=== PATIENT | female | born 1935 | race Caucasian/White ===

== ENCOUNTER → 2016-10-18 | Outpatient (CLI) | payer BC ==
[~2016-10-18] MED LIST: ASPI81TA28 PO; ATEN-173 PO; CALC-20 PO; CARB25TA12 PO; ENAL10TA88 PO; HYDR-4717 PO; MULT-506 PO; NTRGSL/4 UT; SIMV20TA2 PO; ZOLP5TAB6 PO
--- NOTE | 2016-10-18 12:54 | DIAGNOSTIC IMAGING REPORT ---
THYROID ULTRASOUND HISTORY: Thyroid nodule. Follow-up. COMPARISON: Thyroid ultrasound 01/25/2012. FINDINGS: Right lobe: 4.0 x 1.7 x 1.3 cm. There are few small nodules/cysts. The largest heterogeneous nodule in the lower pole measures 7 x 5 mm. This has slightly decreased in size. Left lobe: 4.2 x 1.3 x 1.1 cm. There are few small nodules/cysts with the largest in the upper pole measuring 5 mm. Isthmus: 2 mm in thickness. No nodules. IMPRESSION: The dominant nodule within the lower pole of the right lower lobe has slightly decreased in size and now measures 7 x 5 mm. This does not meet sonographic criteria for biopsy. Electronically signed by: Lyle Yang M.D. 10/18/2016 12:53 PM Dictated Date/Time: 10/18/2016 12:51 PM
== END | disposition home or self-care (01) ==
LOC: C.ULTR 11:47
PROVIDERS: ATTEND Internal Medicine
DX: E04.2 Nontoxic multinodular goiter (principal)

== ENCOUNTER → 2017-01-02 | Outpatient (CLI) | payer BC ==
[2017-01-02 17:31] LABS: URINE APPEARANCE CLEAR (CLEAR); URINE BILIRUBIN NEG (NEG); URINE COLOR YELLOW; URINE NITRITE POS (NEG); URINE PH 7.5 (4.5-7.5); URINE SPECIFIC GRAVITY 1.018 (1.000-1.030); UROBILINOGEN NEG (NEG)
[2017-01-02 17:40] LABS: MANUAL MICROSCOPIC REQUIRED? NO; REVIEW REQ? NO
== END | disposition home or self-care (01) ==
LOC: C.LABBFT 12:03
PROVIDERS: ATTEND Physician Assistant Medical
DX: R39.9 Unspecified symptoms and signs involving the genitourinary system (principal)

== ENCOUNTER → 2017-04-06 | Outpatient (CLI) | payer BC ==
[2017-04-06 12:58] LABS: BASO % 0.6 %; BASO ABS # 0.04 K/uL (0-0.2); COMPLETE YES; EOS % 2.4 %; HEMATOCRIT 40.1 % (37-47); IG% 0.3 %; MEAN CELL VOLUME 86.1 fL (80-100); MEAN CORPUSCULAR HGB CONC 33.7 g/dl (32-36); MEAN PLATELET VOLUME 10.5 fL (7.4-10.4); MONO % 10.1 %; NEUT % 60.6 %; PLATELET COUNT 217 K/uL (130-400); RED BLOOD COUNT 4.66 M/uL (4.2-5.4); WHITE BLOOD COUNT 6.54 K/uL (4.8-10.8)
[2017-04-06 13:30] LABS: URINE APPEARANCE CLOUDY (CLEAR); URINE BILIRUBIN NEG (NEG); URINE COLOR YELLOW; URINE EPITHELIAL CELL AUTO >30 /lpf (0-5); URINE NITRITE POS (NEG); URINE SPECIFIC GRAVITY 1.021 (1.000-1.030); UROBILINOGEN NEG (NEG); ZZUR CULT IF INDIC CLEAN CATCH YES
[2017-04-06 13:40] LABS: MANUAL MICROSCOPIC REQUIRED? NO; REVIEW REQ? NO
[2017-04-06 13:40] LABS: ALT/SGPT 9 U/L (12-78); BLOOD UREA NITROGEN 22 mg/dl (7-18); BUN/CREATININE RATIO 24.2 (10-20); CARBON DIOXIDE 29 mmol/L (21-32); CHLORIDE 107 mmol/L (98-107); CHOLESTEROL 115 mg/dl (0-200); GLUCOSE 83 mg/dl (70-99); POTASSIUM 4.1 mmol/L (3.5-5.1); SODIUM 141 mmol/L (136-145); TRIGLYCERIDES 93 mg/dl (0-150); VERY LOW DENSITY LIPOPROT CALC 19 mg/dl
[2017-04-06 13:50] LABS: ALB/GLOB RATIO 1.1 (0.9-2); ALKALINE PHOSPHATASE 69 U/L (45-117); AST/SGOT 17 U/L (15-37); CHOLESTEROL/HDL RATIO 3.1; HDL CHOLESTEROL 37 mg/dl; LDL CHOLESTEROL CALCULATED 59 mg/dl
== END | disposition home or self-care (01) ==
LOC: C.LABBFT 07:54
PROVIDERS: ATTEND Internal Medicine
DX: R31.29 Other microscopic hematuria (principal); E78.00 Pure hypercholesterolemia, unspecified; M85.80 Other specified disorders of bone density and structure, unspecified site; G20 Parkinson's disease

== ENCOUNTER → 2017-07-11 | Outpatient (CLI) | payer BC ==
--- NOTE | 2017-07-12 13:43 | MAMMOGRAPHY REPORT ---
BILATERAL DIGITAL SCREENING MAMMOGRAM TOMOSYNTHESIS WITH CAD: 07/11/2017 CLINICAL HISTORY: Routine screening. Patient has no complaints. TECHNIQUE: Breast tomosynthesis in addition to standard 2D mammography was performed. Current study was also evaluated with a Computer Aided Detection (CAD) system. COMPARISON: Comparison is made to exams dated: 06/21/2016 mammogram, 06/18/2015 mammogram, 06/17/2014 m ammogram, 06/11/2013 mammogram, 06/05/2012 mammogram, and 06/03/2011 mammogram - [facility]. BREAST COMPOSITION: There are scattered areas of fibroglandular density in both breasts. FINDINGS: There is an asymmetry in the subareolar left breast, best seen on the CC view and correspo nding tomosynthesis images. Although this could represent normal fibroglandular tissue, additional s pot compression tomosynthesis views with possible ultrasound are recommended. No other suspicious mass, architectural distortion or cluster of microcalcifications is seen bilatera lly. IMPRESSION: ACR BI-RADS CATEGORY 0: INCOMPLETE EVALUATION: NEED ADDITIONAL IMAGING EVALUATION The asymmetry in the subareolar left breast needs additional evaluation. The patient will be called to schedule an appointment. Approximately 10% of breast cancers are not detected with mammography. A negative mammographic report should not delay biopsy if a clinically suggestive mass is present. Geraldine Gibson M.D. ay/:07/11/2017 15:22:51 Pastoral Worker: Danelle GULALPA(Kary)(Elena), [facility] letter sent: Addl Imaging 0 BI-RADS Code: ACR BI-RADS Category 0: Incomplete Evaluation: Need Additional Imaging Evaluation
== END | disposition home or self-care (01) ==
LOC: C.MAMM 13:28
PROVIDERS: ATTEND Internal Medicine
DX: Z12.31 Encounter for screening mammogram for malignant neoplasm of breast (principal)

== ENCOUNTER → 2017-07-19 | Outpatient (CLI) | payer BC ==
--- NOTE | 2017-07-19 15:17 | MAMMOGRAPHY REPORT ---
UNILATERAL LEFT DIGITAL DIAGNOSTIC MAMMOGRAM TOMOSYNTHESIS AND TARGETED LEFT ULTRASOUND: 07/19/2017 CLINICAL HISTORY: Callback from screening mammogram for left breast asymmetry. TECHNIQUE: Breast tomosynthesis in addition to standard 2D mammography was performed. Spot compress ion left CC and MLO 2-D and tomosynthesis images were obtained. COMPARISON: Comparison is made to exams dated: 07/11/2017 mammogram, 06/21/2016 mammogram, 06/18/2015 mammogram, 06/17/2014 mammogram, 06/05/2012 mammogram, and 06/03/2011 mammogram - [facility]. BREAST COMPOSITION: There are scattered areas of fibroglandular density in the left breast. FINDINGS: The previously described asymmetry within the left subareolar breast effaces to a baseline appearance on the additional spot compression views, with appearance of this region similar to multip le prior exams including the 2008 exam. No suspicious mass or architectural distortion is seen in th is region on the additional images. Targeted ultrasound was performed of the left subareolar breast in the region of the mammographic asy mmetry. Sonographically normal tissue is seen in this region, with multiple normal-appearing ducts s een in the left subareolar region which likely account for the stable mammographic asymmetry. No roberto picious masses or other suspicious sonographic abnormalities are evident. IMPRESSION: ACR BI-RADS CATEGORY 2: BENIGN, TARGETED ULTRASOUND ACR BI-RADS CATEGORY 2: BENIGN The left breast asymmetry effaces to a baseline appearance on the additional images, with no correspo nding suspicious sonographic abnormality evident. Findings are benign and compatible with normal fib roglandular tissue. There is no mammographic or targeted sonographic evidence of malignancy. A 1 yea r screening mammogram is recommended. The patient has been verbally notified of the results. Approximately 10% of breast cancers are not detected with mammography. A negative mammographic report should not delay biopsy if a clinically suggestive mass is present. Radha Moss M.D. /:07/19/2017 09:39:28 Urban Designer: Danelle Owen, [facility] letter sent: Normal 1/2 BI-RADS Code: ACR BI-RADS Category 2: Benign Ultrasound BI-RADS: ACR BI-RADS Category 2: Benign
== END | disposition home or self-care (01) ==
LOC: C.MAMM 09:17
PROVIDERS: ATTEND Internal Medicine
DX: N64.89 Other specified disorders of breast (principal)

== ENCOUNTER 2017-09-13 17:00 | Observation (INO) | payer BC, OTHER ==
[~2017-09-13] VITALS: Ht 160 cm; Wt 73.8 kg
--- NOTE | 2017-09-13 19:26 | EMERGENCY ROOM VISIT NOTE ---
History First contact with patient: 18:35 Chief Complaint: HYPERTENSION Stated Complaint: VERY HIGH BLOOD PRESSURE History of Present Illness The patient is a 82 year old female with history of Hypertension ,HLD, Parkinson 's disease currently taking Coreg, Valsartan who presents to the Emergency Room with complaints of elevated Blood pressure for the last 3 days. She went to see her PCP, Dr. Morales yesterday and BP at the time was 188/100. She reports today her BP at home was >220/>[address] Morales's office. She was subsequently encouraged to go to ED for evaluation.She reports Headache,some nausea. She also reports recurrent intermittent chest tightness for the last several months. Chest discomfort is central , typically last seconds, not associated with exertion, non-radiating. She also reports occasional palpation. She denies vision changes, fevers, chills nausea/vomiting. Review of Systems Pt denies headache, change in vision, fevers, shortness of breath, nausea, vomiting, diarrhea, pain with urination, and melena. Past Medical/Surgical History Medical Problems: (1) Cervical cancer (2) Colon polyps (3) H/O non-ST elevation myocardial infarction (NSTEMI) (4) Hypertension (5) Hypertensive urgency (6) Precordial chest pain (7) Renal cyst, right (8) Shortness of breath Surgical Problems: (1) History of appendectomy Family History FH: COPD (chronic obstructive pulmonary disease) FH: cancer FH: heart disease FH: stroke Social History Smoking Status: Former Smoker Alcohol Use: occasionally Drug Use: none Marital Status: Housing Status: lives with family Occupation Status: retired Current/Historical Medications Scheduled Aspirin (Aspirin Ec), 81 MG PO QAM Calcium Carbonate-Vitamin D (Calcium 600 + D), 1 TAB PO DAILY Carbidopa/Levodopa (Sinemet 25MG/100MG), 1 TAB PO QID Carvedilol (Coreg), 6.25 MG PO BIDM Multivitamin (Multivitamin), 1 TAB PO DAILY [place]-3 Fatty Acids (Fish Oil), 1 CAP PO DAILY Simvastatin (Zocor), 20 MG PO QPM Valsartan (Diovan), 160 MG PO DAILY Scheduled PRN Furosemide (Lasix), 20 MG PO DAILY PRN for Fluid Retention Nitroglycerin (Nitrostat), 0.4 MG UT UD PRN for Chest Pain Physical Exam Vital Signs Date Time Temp Pulse Resp B/P (MAP) Pulse Ox O2 Delivery O2 Flow Rate FiO2 09/13/17 23:46 71 20 215/111 95 09/13/17 23:07 63 09/13/17 22:45 61 18 199/92 93 Room Air 09/13/17 21:45 60 18 186/97 98 09/13/17 21:17 58 18 192/121 94 Room Air 09/13/17 20:32 75 18 228/117 97 Room Air 09/13/17 19:31 62 09/13/17 19:26 67 18 213/100 97 Room Air 09/13/17 17:08 36.6 67 16 196/107 94 Room Air Physical Exam GENERAL: alert, no distress, non-toxic EYE EXAM: normal conjunctiva, PERRL and EOM's grossly intact OROPHARYNX: no exudate, no erythema, lips, buccal mucosa, and tongue normal and mucous membranes are moist NECK: supple, no nuchal rigidity, no adenopathy, non-tender LUNGS: Clear to auscultation. Normal chest wall mechanics HEART: no murmurs, S1 normal and S2 normal ABDOMEN: abdomen soft, non-tender, normo-active bowel sounds, no masses, no rebound or guarding. LOWER EXTREMITIES: No pitting edema. NEURO EXAM: Normal sensorium, cranial nerves II-XII grossly intact, normal speech Medical Decision & Procedures Laboratory Results 09/13/17 19:27 Red Blood Count 4.96, Mean Corpuscular Volume 85.7, Mean Corpuscular Hemoglobin 28.6, Mean Corpuscular Hemoglobin Concent 33.4, Mean Platelet Volume 9.6, Neutrophils (%) (Auto) 58.2, Lymphocytes (%) (Auto) 27.4, Monocytes (%) (Auto) 10.7, Eosinophils (%) (Auto) 3.0, Basophils (%) (Auto) 0.4, Neutrophils # (Auto ) 3.91, Lymphocytes # (Auto) 1.84, Monocytes # (Auto) 0.72, Eosinophils # (Auto ) 0.20, Basophils # (Auto) 0.03 09/13/17 19:27 Test 09/13/17 19:27 White Blood Count 6.72 K/uL (4.8-10.8) Red Blood Count 4.96 M/uL (4.2-5.4) Hemoglobin 14.2 g/dL (12.0-16.0) Hematocrit 42.5 % (37-47) Mean Corpuscular Volume 85.7 fL (80-100) Mean Corpuscular Hemoglobin 28.6 pg (25-34) Mean Corpuscular Hemoglobin Concent 33.4 g/dl (32-36) Platelet Count 228 K/uL (130-400) Mean Platelet Volume 9.6 fL (7.4-10.4) Neutrophils (%) (Auto) 58.2 % Lymphocytes (%) (Auto) 27.4 % Monocytes (%) (Auto) 10.7 % Eosinophils (%) (Auto) 3.0 % Basophils (%) (Auto) 0.4 % Neutrophils # (Auto) 3.91 K/uL (1.4-6.5) Lymphocytes # (Auto) 1.84 K/uL (1.2-3.4) Monocytes # (Auto) 0.72 K/uL (0.11-0.59) Eosinophils # (Auto) 0.20 K/uL (0-0.5) Basophils # (Auto) 0.03 K/uL (0-0.2) RDW Standard Deviation 46.8 fL (36.4-46.3) RDW Coefficient of Variation 14.8 % (11.5-14.5) Immature Granulocyte % (Auto) 0.3 % Immature Granulocyte # (Auto) 0.02 K/uL (0.00-0.02) Anion Gap 7.0 mmol/L (3-11) Est Creatinine Clear Calc Drug Dose 57.0 ml/min Estimated GFR () 83.9 Estimated GFR (Non- 72.4 BUN/Creatinine Ratio 26.7 (10-20) Calcium Level 9.1 mg/dl (8.5-10.1) Troponin I < 0.015 ng/ml (0-0.045) Medications Administered Medications (Trade) Dose Ordered Sig/Calvin Route Start Time Stop Time Status Last Admin Dose Admin Acetaminophen (Tylenol Tab) 500 mg NOW STAT PO 09/13/17 19:45 09/13/17 19:46 DC 09/13/17 20:00 500 MG Labetalol HCl (Normodyne IV) 10 mg NOW STAT IV 09/13/17 20:52 09/13/17 20:55 DC 09/13/17 20:52 10 MG Procedure CHEST ONE VIEW PORTABLE HISTORY: Hypertension. COMPARISON: Chest 05/31/2016. FINDINGS: No focal lung consolidations to suggest pneumonia. No evidence for pulmonary edema. The heart is borderline enlarged. This remains unchanged. No pleural effusions. No pneumothorax. Degenerative and postoperative changes are again noted within the right shoulder. IMPRESSION: No significant change compared to the prior study. No acute process. Electronically signed by: Lyle Yang M.D. Medical Decision 82 yo F w/ history of Parkinson's Disease and Hypertension on Coreg, Valsartan presenting with Hypertensive Urgency, reporting Headache, and nausea in addition to intermittent chest pain. Patient arrived to ED with 228/117. EKG showed some new Q waves but no acute ischemic changes. Labwork showed unremarkable CBC, BUN/Cr. Troponin was negative. CXR was unremarkable. Discussed case with Dr. Ronquillo ( Cardiology) who advised admitting to observation and trending of troponin levels to rule out new onset ischemia as cause of chest pain. BP was treated with 10 mg IV Labetalol. BP decreased to 192/121-->186/97. Upon reevaluation, the patient is asymptomatic. I discussed the findings and the treatment plan with the patient. Patient expresses agreement and understanding. I spoke with Dr. Dee of the [facility] Hospitalist Service. She will be evaluated for further management. Head Trauma GCS Score: 15 Medication Reconcilliation Current Medication List: was personally reviewed by me Blood Pressure Screening Patient's blood pressure: Elevated blood pressure Impression Primary Impression: Hypertension Additional Impression: Chest pain Departure Information Dispostion Admitted as an inpatient Condition GOOD Referrals Andrés Morales M.D. (PCP) Patient Instructions My [facility] Resident Tracking Resident Involvement: Resident Care Provided Care Provided: Adult ED Problem Qualifiers
[2017-09-13 19:41] LABS: BASO % 0.4 %; BASO ABS # 0.03 K/uL (0-0.2); HEMATOCRIT 42.5 % (37-47); HEMOGLOBIN 14.2 g/dL (12.0-16.0); IG# 0.02 K/uL (0.00-0.02); LYMPH % 27.4 %; LYMPH ABS # 1.84 K/uL (1.2-3.4); MEAN CELL VOLUME 85.7 fL (80-100); MEAN CORPUSCULAR HEMOGLOBIN 28.6 pg (25-34); MEAN CORPUSCULAR HGB CONC 33.4 g/dl (32-36); MEAN PLATELET VOLUME 9.6 fL (7.4-10.4); MONO % 10.7 %; MONO ABS # 0.72 K/uL (0.11-0.59); NEUT % 58.2 %; NEUT ABS # 3.91 K/uL (1.4-6.5); PLATELET COUNT 228 K/uL (130-400); RED CELL DISTRIBUTION WIDTH CV 14.8 % (11.5-14.5); RED CELL DISTRIBUTION WIDTH SD 46.8 fL (36.4-46.3); WHITE BLOOD COUNT 6.72 K/uL (4.8-10.8)
[2017-09-13] MEDS ORDERED: ACETAMINOPHEN 500 MG TAB PO STA (19:45)
[2017-09-13 19:57] LABS: BLOOD UREA NITROGEN 21 mg/dl (7-18); CALCIUM 9.1 mg/dl (8.5-10.1); CARBON DIOXIDE 27 mmol/L (21-32); CREATININE 0.77 mg/dl (0.60-1.20); GLUCOSE 91 mg/dl (70-99); POTASSIUM 3.8 mmol/L (3.5-5.1); SODIUM 138 mmol/L (136-145)
--- NOTE | 2017-09-13 20:39 | DIAGNOSTIC IMAGING REPORT ---
CHEST ONE VIEW PORTABLE HISTORY: Hypertension. COMPARISON: Chest 05/31/2016. FINDINGS: No focal lung consolidations to suggest pneumonia. No evidence for pulmonary edema. The heart is borderline enlarged. This remains unchanged. No pleural effusions. No pneumothorax. Degenerative and postoperative changes are again noted within the right shoulder. IMPRESSION: No significant change compared to the prior study. No acute process. Electronically signed by: Lyle Yang M.D. 09/13/2017 8:38 PM Dictated Date/Time: 09/13/2017 8:34 PM
[2017-09-13] MEDS ORDERED: LABETALOL HCL IV 5 MG/ML 20ML IV STA (20:52)
--- NOTE | 2017-09-13 22:09 | History and Physical ---
History & Physical Date & Time of Service: Sep 13, 2017 at 22:07 Chief Complaint: Very High Blood Pressure Primary Care Physician: Andrés Morales M.D. History of Present Illness 82 year old female with PMHx h/o NSTEMI, HTN, HLD, Parkinson's presents to the ED with complaints of elevated blood pressure and headache. It was first noted at here PCP's office yesterday where what was noted to 188 systolic. Advised patient to go home and monitor until Monday, without adjustment in anti-hypertensive medications. Patient noted levels of >200 systolic this morning. She began developing a frontal pressure and sensation of "eye bulging" around noon and called her PCP who referred her to ED for further evaluation. She also states intermittent episodes of nausea, which actually began last night. Patient states compliance with her medication: carvedilol, valsartan, and furosemide PRN for leg swelling. She normally does not measure BP at home. She otherwise denies fevers/chills, vision changes, URTI symptoms, current CP, palpitations (has history of these, but none currently), dyspnea, abdominal pain , lower extremity swelling, new assymetrical weakness/facial drooping/speech slurring, or rashes. She is tolerating diet without nausea or vomiting, ambulating without dizziness/lightheadedness and denies recent falls or head trauma. She voiding and stooling appropriately. ROS is unremarkable except as noted above. In the ED, BP reduced to 187/97 with labetalol, but patient has ongoing complaints of headache and eye pressure, despite Tylenol. Past Medical/Surgical History Medical/surgical problems: Parkinson's HTN HLD NSTEMI Colon Polyps Renal cysts Cervical cancer s/p hysterectomy without removal of ovaries Breast lumpectomies for benign masses History of appendectomy Back surgery Shoulder surgery Family History FH: COPD (chronic obstructive pulmonary disease) FH: cancer FH: heart disease FH: stroke Social History Smoking Status: Former Smoker (Ex smoker of 40 years, 20-30 pack year history) Smokeless Tobacco Use: No Alcohol Use: none Drug Use: none Marital Status: Housing status: lives with family Occupational Status: retired Immunizations History of Influenza Vaccine: N/A Influenza Vaccine Date: May 11, 2005 History of Tetanus Vaccine?: Yes History of Pneumococcal: 2004 History of Hepatitis B Vaccine: No Multi-Drug Resistant Organisms History of MDRO: No Allergies Coded Allergies: Morphine (Verified Allergy, Unknown, 06/07/16) Home Medications Scheduled Aspirin (Aspirin Ec), 81 MG PO QAM Calcium Carbonate-Vitamin D (Calcium 600 + D), 1 TAB PO DAILY Carbidopa/Levodopa (Sinemet 25MG/100MG), 1 TAB PO QID Carvedilol (Coreg), 6.25 MG PO BIDM Multivitamin (Multivitamin), 1 TAB PO DAILY [place]-3 Fatty Acids (Fish Oil), 1 CAP PO DAILY Simvastatin (Zocor), 20 MG PO QPM Valsartan (Diovan), 160 MG PO DAILY Scheduled PRN Furosemide (Lasix), 20 MG PO DAILY PRN for Fluid Retention Nitroglycerin (Nitrostat), 0.4 MG UT UD PRN for Chest Pain Physical Exam Vital Signs Date Time Temp Pulse Resp B/P (MAP) Pulse Ox O2 Delivery O2 Flow Rate FiO2 09/13/17 21:45 60 18 186/97 98 09/13/17 21:17 58 18 192/121 94 Room Air 09/13/17 20:32 75 18 228/117 97 Room Air 09/13/17 19:31 62 09/13/17 19:26 67 18 213/100 97 Room Air 09/13/17 17:08 36.6 67 16 196/107 94 Room Air General Appearance: WD/WN, no apparent distress, + pertinent finding (soft spoken, mild degree of masked facies) Head: normocephalic, atraumatic Eyes: normal inspection, PERRL, EOMI, sclerae normal ENT: hearing grossly normal, pharynx normal, + pertinent finding (moist mucous membranes) Neck: supple, no adenopathy, thyroid normal, no JVD, no carotid bruits Respiratory/Chest: lungs clear, normal breath sounds, no respiratory distress, no accessory muscle use Cardiovascular: regular rate, rhythm, no murmur, normal peripheral pulses Abdomen/GI: normal bowel sounds, non tender, soft Extremities/Musculoskelatal: no calf tenderness, + pedal edema (trace edema up to upper ankles), + pertinent finding (Describing right sided sciatic pain symptoms - not new) 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, no motor/sensory deficits, alert, normal mood/affect, oriented x 3 Skin: normal color, warm/dry, no rash Diagnostics Laboratory Results Results Past 24 Hours Test 09/13/17 19:27 Range/Units White Blood Count 6.72 4.8-10.8 K/uL Red Blood Count 4.96 4.2-5.4 M/uL Hemoglobin 14.2 12.0-16.0 g/dL Hematocrit 42.5 37-47 % Mean Corpuscular Volume 85.7 80-100 fL Mean Corpuscular Hemoglobin 28.6 25-34 pg Mean Corpuscular Hemoglobin Concent 33.4 32-36 g/dl Platelet Count 228 130-400 K/uL Mean Platelet Volume 9.6 7.4-10.4 fL Neutrophils (%) (Auto) 58.2 % Lymphocytes (%) (Auto) 27.4 % Monocytes (%) (Auto) 10.7 % Eosinophils (%) (Auto) 3.0 % Basophils (%) (Auto) 0.4 % Neutrophils # (Auto) 3.91 1.4-6.5 K/uL Lymphocytes # (Auto) 1.84 1.2-3.4 K/uL Monocytes # (Auto) 0.72 0.11-0.59 K/uL Eosinophils # (Auto) 0.20 0-0.5 K/uL Basophils # (Auto) 0.03 0-0.2 K/uL RDW Standard Deviation 46.8 36.4-46.3 fL RDW Coefficient of Variation 14.8 11.5-14.5 % Immature Granulocyte % (Auto) 0.3 % Immature Granulocyte # (Auto) 0.02 0.00-0.02 K/uL Sodium Level 138 136-145 mmol/L Potassium Level 3.8 3.5-5.1 mmol/L Chloride Level 104 98-107 mmol/L Carbon Dioxide Level 27 21-32 mmol/L Anion Gap 7.0 3-11 mmol/L Blood Urea Nitrogen 21 7-18 mg/dl Creatinine 0.77 0.60-1.20 mg/dl Est Creatinine Clear Calc Drug Dose 57.0 ml/min Estimated GFR () 83.9 Estimated GFR (Non- 72.4 BUN/Creatinine Ratio 26.7 10-20 Random Glucose 91 70-99 mg/dl Calcium Level 9.1 8.5-10.1 mg/dl Troponin I < 0.015 0-0.045 ng/ml Diagnostic Radiology CHEST ONE VIEW PORTABLE HISTORY: Hypertension. COMPARISON: Chest 05/31/2016. FINDINGS: No focal lung consolidations to suggest pneumonia. No evidence for pulmonary edema. The heart is borderline enlarged. This remains unchanged. No pleural effusions. No pneumothorax. Degenerative and postoperative changes are again noted within the right shoulder. IMPRESSION: No significant change compared to the prior study. No acute process. EKG Normal sinus rhythm Normal ECG HR 64, QTc 433 Impression Assessment and Plan 82 year old female with PMHx h/o CAD / NSTEMI, HTN, HLD, Parkinson's presents to the ED with complaints of elevated blood pressure and headache. HTN urgency with symptoms - no focal neurological deficits appreciated - Continue carvedilol, and valsartan - Added HCTz 12.5mg daily - IV hydralazine 10mg q6h PRN SBP >180 - Zofran PRN nausea - Monitor in telemetry CAD/HLD - Continue aspirin, simvastatin, and nitroglycerin PRN - EKG PRN chest pain Parkinson's - Continue carbidopa/levodopa VTE ppx - SCDs Dispo - lives home with , PT/OT eval FULL CODE Resident Physician Supervision Note: I was present with Dr. Moran during the history and exam. I discussed the case with the resident and agree with the findings and plan as documented in the note. Any exceptions or clarifications are listed here: 82 y/o F Hx HTN, CAD, Parkinson - has been struggling with an BARBOZA and uncontrolled BP over the last few days. She was treated at her primary MDs office but has not significantly improved. Her SBP in the ER has ranged from 180-220 despite IV Labetalol. OE AAOx3 s1,2 r CTAB NT, ND NO CCE P: She denies CP and is not having focal deficits We will assign to telemetry and treat with Hydralazine in addition to starting a low dose of diuretic as a 3rd agent. Will cont ASA and a Statin - there is no eveidence of ACS although she may have some subtle EKG changes - will obtain additional trop and AM EKG Cont scheduled Sinemet Documented By: Rodney Dee Level of Care Telemetry Advanced Directives Existing Advance Directive: Yes Existing Living Will: Yes Existing Power of Corporate Intern: Yes (Debby Willingham, PatitoRadha Sarah) Existing Health Care Proxy: Yes Resuscitation Status FULL RESUSCITATION VTE Prophylaxis VTE Risk Assessment Done? Y/N: Yes Risk Level: Moderate Given or contraindicated: SCD's Resident Tracking Resident Involvement: Resident Care Provided Care Provided: Adult Hospital Medicine
[2017-09-13] MEDS ORDERED: VALS320T PO (22:19)
[2017-09-13] MEDS ORDERED: FURO-85 PO (22:19)
[2017-09-13] MEDS ORDERED: CARV6.252 PO (22:19)
[2017-09-13] MEDS ORDERED: OMEGCAP2 PO (22:19)
[2017-09-13] MEDS ORDERED: MAGNESIUM HYDROXIDE SUSP 30 ML UDC PO PRN (22:45)
[2017-09-13] MEDS ORDERED: POLYETHYLENE (MIRALAX) 17 GM PACK PO PRN (22:45)
[2017-09-13] MEDS ORDERED: ONDANSETRON INJ 2 MG/ML 2 ML VIAL IV PRN (22:45)
[2017-09-13] MEDS ORDERED: NITROGLYCERIN 0.4 MG SL PER TAB CHARGE SL PRN (22:45)
[2017-09-13] MEDS ORDERED: NITROGLYCERIN 0.4 MG SL PER TAB CHARGE UT PRN (22:45)
[2017-09-13] MEDS ORDERED: ALUMINUM/MAGNESIUM/SIMETH (MAALOX MAX) 30 ML UDC PO PRN (22:45)
[2017-09-13] MEDS ORDERED: HydrALAZINE HCL 20 MG/ML VIAL IV. PRN (22:45)
--- NOTE | 2017-09-13 23:21 | EMERGENCY ROOM VISIT NOTE ---
History Report prepared by Beatriz: Naty Orozco Under the Supervision of: Dr. Sly Suarez D.O. First contact with patient: 18:35 Chief Complaint: HYPERTENSION Stated Complaint: VERY HIGH BLOOD PRESSURE History of Present Illness The patient is a 82 year old female who presents to the Emergency Room with complaints of constant hypertension for the past 3 days. The patient has a history of hypertension. She reports that her BP has been elevated for the past 3 days. She saw her PCP for these symptoms yesterday. At that time her BP was 188/100. She went home without any changes to her medications. Around noon today she noted her BP to be >220/>100. She called her PCP's office and was advised to come to the ED for further evaluation. Pt reports headache and nausea. She took all of her medications today and took an extra dose of her beta evelia as instructed by her PCP. She also reports recurrent chest tightness for the last several months. This is located in the center of her chest and lasts for a few seconds at a time. She did not have any chest tightness today but did have some episodes yesterday. It is not worsened with exertion. Pt denies any arm pain or jaw pain. Pt denies change in vision, fevers , shortness of breath, vomiting, diarrhea, pain with urination, and melena. Source of History: patient Onset: 3 days ago Position: other (global) Symptom Intensity: BP >220/>100 Quality: other (hypertension) Timing: constant Associated Symptoms: + headache, + chest pain, + nausea, No fevers, No SOB, No vomiting, No melena, No diarrhea, No urinary symptoms Review of Systems See HPI for pertinent positives & negatives. A total of 10 systems reviewed and were otherwise negative. Past Medical & Surgical Medical Problems: (1) Cervical cancer (2) Colon polyps (3) H/O non-ST elevation myocardial infarction (NSTEMI) (4) Hypertension (5) Hypertensive urgency (6) Precordial chest pain (7) Renal cyst, right (8) Shortness of breath Surgical Problems: (1) History of appendectomy Family History FH: COPD (chronic obstructive pulmonary disease) FH: cancer FH: heart disease FH: stroke Social History Smoking Status: Former Smoker Alcohol Use: occasionally Drug Use: none Marital Status: Housing Status: lives with family Occupation Status: retired Current/Historical Medications Scheduled Aspirin (Aspirin Ec), 81 MG PO QAM Calcium Carbonate-Vitamin D (Calcium 600 + D), 1 TAB PO DAILY Carbidopa/Levodopa (Sinemet 25MG/100MG), 1 TAB PO QID Carvedilol (Coreg), 6.25 MG PO BIDM Multivitamin (Multivitamin), 1 TAB PO DAILY [place]-3 Fatty Acids (Fish Oil), 1 CAP PO DAILY Simvastatin (Zocor), 20 MG PO QPM Valsartan (Diovan), 160 MG PO DAILY Scheduled PRN Furosemide (Lasix), 20 MG PO DAILY PRN for Fluid Retention Nitroglycerin (Nitrostat), 0.4 MG UT UD PRN for Chest Pain Allergies Coded Allergies: Morphine (Verified Allergy, Unknown, 06/07/16) Physical Exam Vital Signs Date Time Temp Pulse Resp B/P (MAP) Pulse Ox O2 Delivery O2 Flow Rate FiO2 09/13/17 23:07 63 09/13/17 22:45 61 18 199/92 93 Room Air 09/13/17 21:45 60 18 186/97 98 09/13/17 21:17 58 18 192/121 94 Room Air 09/13/17 20:32 75 18 228/117 97 Room Air 09/13/17 19:31 62 09/13/17 19:26 67 18 213/100 97 Room Air 09/13/17 17:08 36.6 67 16 196/107 94 Room Air Physical Exam GENERAL: Sitting up in bed, alert, disheveled, chronically ill appearing, well nourished, no distress, non-toxic EYE EXAM: normal conjunctiva. PERRL and EOM's intact. OROPHARYNX: no exudate, no erythema, lips, buccal mucosa, and tongue normal and mucous membranes are moist NECK: supple, no nuchal rigidity, no adenopathy, non-tender LUNGS: Clear to auscultation. Normal chest wall mechanics HEART: no murmurs, S1 normal and S2 normal ABDOMEN: abdomen soft, non-tender, normo-active bowel sounds, no masses, no rebound or guarding. BACK: Back is symmetrical on inspection and there is no deformity, no midline tenderness, no CVA tenderness. SKIN: no rashes and no bruising UPPER EXTREMITIES: upper extremities are grossly normal. LOWER EXTREMITIES: No pitting edema. Acute reproducible tenderness in right gluteus. NEURO EXAM: Normal sensorium, cranial nerves II-XII intact, normal speech, no weakness of arms, no weakness of legs. No drift. Finger to nose intact. Gross sensation intact. Medical Decision & Procedures ER Provider Diagnostic Interpretation: Radiology results as stated below per my review and the radiologist's interpretation: CHEST ONE VIEW PORTABLE HISTORY: Hypertension. COMPARISON: Chest 05/31/2016. FINDINGS: No focal lung consolidations to suggest pneumonia. No evidence for pulmonary edema. The heart is borderline enlarged. This remains unchanged. No pleural effusions. No pneumothorax. Degenerative and postoperative changes are again noted within the right shoulder. IMPRESSION: No significant change compared to the prior study. No acute process. Electronically signed by: Lyle Yang M.D. 09/13/2017 8:38 PM Dictated Date/Time: 09/13/2017 8:34 PM Laboratory Results 09/13/17 19:27 Red Blood Count 4.96, Mean Corpuscular Volume 85.7, Mean Corpuscular Hemoglobin 28.6, Mean Corpuscular Hemoglobin Concent 33.4, Mean Platelet Volume 9.6, Neutrophils (%) (Auto) 58.2, Lymphocytes (%) (Auto) 27.4, Monocytes (%) (Auto) 10.7, Eosinophils (%) (Auto) 3.0, Basophils (%) (Auto) 0.4, Neutrophils # (Auto ) 3.91, Lymphocytes # (Auto) 1.84, Monocytes # (Auto) 0.72, Eosinophils # (Auto ) 0.20, Basophils # (Auto) 0.03 09/13/17 19:27 Test 09/13/17 19:27 White Blood Count 6.72 K/uL (4.8-10.8) Red Blood Count 4.96 M/uL (4.2-5.4) Hemoglobin 14.2 g/dL (12.0-16.0) Hematocrit 42.5 % (37-47) Mean Corpuscular Volume 85.7 fL (80-100) Mean Corpuscular Hemoglobin 28.6 pg (25-34) Mean Corpuscular Hemoglobin Concent 33.4 g/dl (32-36) Platelet Count 228 K/uL (130-400) Mean Platelet Volume 9.6 fL (7.4-10.4) Neutrophils (%) (Auto) 58.2 % Lymphocytes (%) (Auto) 27.4 % Monocytes (%) (Auto) 10.7 % Eosinophils (%) (Auto) 3.0 % Basophils (%) (Auto) 0.4 % Neutrophils # (Auto) 3.91 K/uL (1.4-6.5) Lymphocytes # (Auto) 1.84 K/uL (1.2-3.4) Monocytes # (Auto) 0.72 K/uL (0.11-0.59) Eosinophils # (Auto) 0.20 K/uL (0-0.5) Basophils # (Auto) 0.03 K/uL (0-0.2) RDW Standard Deviation 46.8 fL (36.4-46.3) RDW Coefficient of Variation 14.8 % (11.5-14.5) Immature Granulocyte % (Auto) 0.3 % Immature Granulocyte # (Auto) 0.02 K/uL (0.00-0.02) Anion Gap 7.0 mmol/L (3-11) Est Creatinine Clear Calc Drug Dose 57.0 ml/min Estimated GFR () 83.9 Estimated GFR (Non- 72.4 BUN/Creatinine Ratio 26.7 (10-20) Calcium Level 9.1 mg/dl (8.5-10.1) Troponin I < 0.015 ng/ml (0-0.045) Laboratory results per my review. Medications Administered Medications (Trade) Dose Ordered Sig/Calvin Route Start Time Stop Time Status Last Admin Dose Admin Acetaminophen (Tylenol Tab) 500 mg NOW STAT PO 09/13/17 19:45 09/13/17 19:46 DC 09/13/17 20:00 500 MG Labetalol HCl (Normodyne IV) 10 mg NOW STAT IV 09/13/17 20:52 09/13/17 20:55 DC 09/13/17 20:52 10 MG ECG Indication: chest pain Rate (beats per minute): 64 Rhythm: normal sinus Findings: Q waves (Septal), left axis deviation Comparison ECG Date: 06/07/16 Change: Septal Q-waves are new. Patient's electrocardiogram interpreted by me. ED Course ED COURSE: Vital signs were reviewed and showed hypertensive. The patients medical record was reviewed The above diagnostic studies were performed and reviewed. ED treatments and interventions as stated above. 1835: The patient was evaluated in room C8. A complete history and physical examination was performed. 1944: Tylenol 500 mg PO 2051: Labetalol HCl 10 mg IV 2134: I spoke with Dr. Dee. We discussed the patient's case. The patient will be evaluated by the [facility] for further management. 2137: Upon reevaluation, the patient is resting more comfortably. I discussed my findings with the patient and she understands and agrees with the treatment plan. Based on the patients age, coexisting illnesses, exam and lab findings the decision to treat as an inpatient was made. The patient remained stable while under my care. The patient will be evaluated for further management. Medical Decision Differential diagnoses includes but is not limited to acute coronary syndrome, myocardial infarction, pericarditis, pulmonary embolus, aortic dissection, pneumonia, pneumothorax, musculoskeletal, shingles, esophageal. Patient is a 82-year-old female who presents to ER referred in by her primary care doctor for hypertension. Systolic blood pressures have been in the 200s. Patient has intermittent chest pain over the past several days which lasts for several seconds. She describes as tightness. She does have some shortness of breath with it EKG shows new septal Q waves. CBC and BMP were unremarkable. Troponin was negative. No chest pain while in the ER. She was given aspirin. She rested for over an hour and blood pressures continued to climb. She was asymptomatic we discussed case with cardiology and they agreed with observation as opposed to discharging and adjusting medications. Patient was given labetalol and systolic pressures came down to the 180s to 190s. She is admits internal medicine for further workup. Medication Reconcilliation Current Medication List: was personally reviewed by me Blood Pressure Screening Patient's blood pressure: Elevated blood pressure Blood pressure disposition: Referred to PCP Consults Time Called: 2129 Consulting Physician: Dr. Dee Returned Call: [address] Dee. We discussed the patient's case. The patient will be evaluated by the [facility] for further management. Impression Primary Impression: Hypertensive urgency Additional Impression: Chest pain Scribe Attestation The scribe's documentation has been prepared under my direction and personally reviewed by me in its entirety. I confirm that the note above accurately reflects all work, treatment, procedures, and medical decision making performed by me. Departure Information Dispostion Being Evaluated By Hospitalist Referrals Andrés Morales M.D. (PCP) Patient Instructions My [facility] Problem Qualifiers Additional Impression: Chest pain Chest pain type: unspecified Qualified Codes: R07.9 - Chest pain, unspecified
[2017-09-13] MEDS ORDERED: IV FLUIDS COMPLETED PRN (23:45)
[2017-09-14] VITALS (12 sets, daily range): BP systolic 88–207; BP diastolic 55–107; PULSE 57–76; TEMP 36.5–37; O2SAT 93–96; Ht 160 cm; Wt 73.8 kg
[2017-09-14] MEDS: ACETAMINOPHEN 325 MG TAB PO PRN ×2 (00:34→07:42)
[2017-09-14] MEDS ORDERED: HYDROCHLOROTHIAZIDE 25 MG TAB PO ONE (00:45)
[2017-09-14] MEDS ORDERED: hydrOXYzine HCL 25 MG TAB PO ONE (02:00)
[2017-09-14 06:30] LABS: HEMATOCRIT 38.9 % (37-47); HEMOGLOBIN 12.9 g/dL (12.0-16.0); MEAN CELL VOLUME 85.3 fL (80-100); MEAN CORPUSCULAR HEMOGLOBIN 28.3 pg (25-34); MEAN CORPUSCULAR HGB CONC 33.2 g/dl (32-36); MEAN PLATELET VOLUME 9.3 fL (7.4-10.4); PLATELET COUNT 204 K/uL (130-400); RED CELL DISTRIBUTION WIDTH CV 14.9 % (11.5-14.5); RED CELL DISTRIBUTION WIDTH SD 46.6 fL (36.4-46.3); WHITE BLOOD COUNT 7.72 K/uL (4.8-10.8)
[2017-09-14 07:02] LABS: CALCIUM 8.7 mg/dl (8.5-10.1); CREATININE 0.71 mg/dl (0.60-1.20); POTASSIUM 3.4 mmol/L (3.5-5.1)
--- NOTE | 2017-09-14 07:36 | Family Medicine Progress Note ---
Progress Note Date of Service Sep 14, 2017. Subjective Patient doing well. Denies chest pain, SOB. Reports that she has been on the same BP regimen for a couple years without changes. Patient reports hospitalization last year for a similar event. Constitutional: No fever, No chills Respiratory: No cough, No sputum, No wheezing Cardiovascular: No chest pain, No edema, No palpitations Abdomen: No pain, No nausea Female : No dysuria Medications Current Inpatient Medications Medications (Trade) Dose Ordered Sig/Calvin Route Start Time Stop Time Status Last Admin Dose Admin Acetaminophen (Tylenol Tab) 650 mg Q4H PRN PO 09/13/17 22:45 10/13/17 22:44 09/14/17 07:42 650 MG Al Hydrox/Mg Hydrox/Simethicone (Maalox Max Susp) 15 ml Q4H PRN PO 09/13/17 22:45 10/13/17 22:44 Magnesium Hydroxide (Milk Of Magnesia Susp) 30 ml Q12H PRN PO 09/13/17 22:45 10/13/17 22:44 Ondansetron HCl (Zofran Inj) 4 mg Q6H PRN IV 09/13/17 22:45 10/13/17 22:44 Nitroglycerin (Nitrostat Tab) 0.4 mg UD PRN SL 09/13/17 22:45 10/13/17 22:44 Polyethylene (Miralax Powder Packet) 17 gm DAILY PRN PO 09/13/17 22:45 10/13/17 22:44 Aspirin (Ecotrin Tab) 81 mg QAM PO 09/14/17 09:00 10/14/17 08:59 09/14/17 08:31 81 MG Carbidopa/Levodopa (Sinemet 25/ 100MG Tab) 1 tab QID PO 09/14/17 09:00 10/14/17 08:59 09/14/17 20:29 1 TAB Carvedilol (Coreg Tab) 6.25 mg BIDM PO 09/14/17 08:00 10/14/17 07:59 09/14/17 16:36 6.25 MG Multivitamins (Multivitamin Tab) 1 tab DAILY PO 09/14/17 09:00 10/14/17 08:59 09/14/17 08:32 1 TAB Simvastatin (Zocor Tab) 20 mg QPM PO 09/14/17 21:00 10/14/17 20:59 09/14/17 20:30 20 MG Valsartan (Diovan Tab) 160 mg DAILY PO 09/14/17 09:00 10/14/17 08:59 09/14/17 08:30 160 MG Hydralazine HCl (HydrALAZINE INJ) 10 mg Q6H PRN IV. 09/13/17 22:45 10/13/17 22:44 09/14/17 00:34 10 MG Miscellaneous (Iv Fluids Completed) 1 ea PRN PRN N/A 09/13/17 23:45 09/13/18 23:44 Objective Vital Signs Date Time Temp Pulse Resp B/P (MAP) Pulse Ox O2 Delivery O2 Flow Rate FiO2 09/14/17 20:00 Room Air 09/14/17 19:33 36.6 57 16 166/91 (116) 96 Room Air 09/14/17 18:13 69 107/68 (81) 09/14/17 18:02 88/56 (67) 09/14/17 17:50 74 92/55 (67) 09/14/17 16:55 36.7 71 18 93 Room Air 09/14/17 16:37 71 169/91 (117) 09/14/17 16:00 Room Air 09/14/17 15:37 36.7 72 18 144/86 (105) 93 09/14/17 12:00 Nasal Cannula 09/14/17 11:48 36.5 66 16 123/74 (90) 94 09/14/17 08:00 Nasal Cannula 09/14/17 07:33 36.9 69 16 126/61 (82) 93 09/14/17 04:00 Nasal Cannula 09/14/17 03:15 36.8 76 20 156/80 (105) 94 Room Air 09/14/17 01:14 36.5 68 18 207/107 Room Air 09/13/17 23:46 71 20 215/111 95 09/13/17 23:07 63 09/13/17 22:45 61 18 199/92 93 Room Air Physical Exam General Appearance: WD/WN, no apparent distress Respiratory/Chest: chest non-tender, lungs clear, normal breath sounds Cardiovascular: regular rate, rhythm, no edema, no murmur Abdomen: normal bowel sounds, non tender, soft 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, no motor/sensory deficits, alert, normal mood/affect, oriented x 3 Skin: normal color, warm/dry, no rash Laboratory Results 09/14/17 06:20 09/14/17 06:20 Test 09/14/17 06:20 Red Blood Count 4.56 M/uL (4.2-5.4) Mean Corpuscular Volume 85.3 fL (80-100) Mean Corpuscular Hemoglobin 28.3 pg (25-34) Mean Corpuscular Hemoglobin Concent 33.2 g/dl (32-36) RDW Standard Deviation 46.6 fL (36.4-46.3) RDW Coefficient of Variation 14.9 % (11.5-14.5) Mean Platelet Volume 9.3 fL (7.4-10.4) Anion Gap 7.0 mmol/L (3-11) Est Creatinine Clear Calc Drug Dose 60.5 ml/min Estimated GFR () 92.6 Estimated GFR (Non- 79.9 BUN/Creatinine Ratio 28.5 (10-20) Calcium Level 8.7 mg/dl (8.5-10.1) Assessment and Plan 82 year old female with PMHx h/o CAD / NSTEMI, HTN, HLD, Parkinson's presents to the ED with complaints of elevated blood pressure and headache. 09/14--Today the patient BP was monitored. Labs and EKG were unremarkable for ACS. Exam was WNL; no signs of focal neuro defects. Patient BP responded well to addition of HCTZ 12.5 in addition to home regimen. Patient was readied for dc , but began to have low readings and felt dizzy. It was decided to keep the patient overnight to evaluate pressures. HTN urgency with symptoms - no focal neurological deficits appreciated - Continue carvedilol, and valsartan - Added HCTz 12.5mg daily - IV hydralazine 10mg q6h PRN SBP >180 - Zofran PRN nausea CAD/HLD - Continue aspirin, simvastatin, and nitroglycerin PRN - EKG PRN chest pain Parkinson's - Continue carbidopa/levodopa VTE ppx - SCDs Dispo - lives home with , PT/OT eval FULL CODE History Resident Physician Supervision Note: I was present with Dr. Olivarez during the history and exam. I discussed the case with the resident and agree with the findings and plan as documented in the note. Any exceptions or clarifications are listed here. Pt resting comfortably in bed with almost completely resolved b/l frontal aching headache. No further bulging sensation of the eyes. Reports no CP/SOB, n/ v, diaphoresis, lightheadedness, n/t/w. 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 d/c HCTZ, monitor BP o/n. CAD/HLD - continue ASA, simvastatin. Nitro PRN Parkinson's - continue levodopa/carbidopa FULL CODE
[2017-09-14] MEDS: CARVEDILOL 6.25 MG TAB PO SCH ×2 (07:42→16:36)
[2017-09-14] MEDS: VALSARTAN 80 MG TAB PO SCH (08:30)
[2017-09-14] MEDS: CARBIDOPA/LEVODOPA 25/100MG TAB PO SCH ×4 (08:31→20:29)
[2017-09-14] MEDS: ASPIRIN 81 MG ECTAB PO SCH (08:31)
[2017-09-14] MEDS: MULTIVITAMIN TAB PO SCH (08:32)
[2017-09-14] MEDS ORDERED: HYDROCHLOROTHIAZIDE 25 MG TAB PO SCH (09:00)
[2017-09-14] MEDS ORDERED: HYDR25TA5 PO (16:13)
--- NOTE | 2017-09-14 16:30 | Discharge Instructions ---
Discharge Instructions Date of Service Sep 14, 2017. Admission Reason for Admission: Hypertensive Urgency Discharge Discharge Diagnosis / Problem: Hypertensive Urgency Discharge Goals Goal(s): Improve function, Increase independence, Improve disease control Activity Recommendations Activity Limitations: resume your previous activity . Instructions / Follow-Up Instructions / Follow-Up Ms. Pete, You came to [facility] with very high blood pressure and head ache. You were admitted to evaluate your cardiac function and to treat your high blood pressure. You were given a IV medication which help abort the high blood pressure. In addition , you were given a medication called hydrochlorothiazide 12.5 mg to help maintain your blood pressure. Throughout the course of your stay, your vital signs remained stable, including your blood pressure. While your blood pressures recovered well, you did become slightly hypotensive (low blood pressure), most likely from our additional treatments. We evaluated you over night and kept you on your normal blood pressure medications. You did well overnight and your pressure remained stable. Your lab work was normal and the EKG which looks at the electrical activity of your heart was also normal. We recommend the following; 1. Close follow up with Dr. Morales and review of your blood pressure medications 2. Continue previous blood pressure medications Current Hospital Diet Patient's current hospital diet: AHA Diet (Heart Healthy) Discharge Diet Recommended Diet: AHA Diet (Heart Healthy), Low Sodium Diet (2gm Na) Pending Studies Studies pending at discharge: no Medical Emergencies . Who to Call and When: Medical Emergencies: If at any time you feel your situation is an emergency, please call 911 immediately. . Non-Emergent Contact Non-Emergency issues call your: Primary Care Provider . . "Provider Documentation" section prepared by Michael Olivarez. . VTE Core Measure Inpt VTE Proph given/why not?: SCD's
[2017-09-14] MEDS ORDERED: SIMVASTATIN 20 MG TAB PO SCH (21:00)
[2017-09-15] VITALS (7 sets, daily range): BP systolic 120–147; BP diastolic 70–91; PULSE 62–72; TEMP 36.5–37; O2SAT 91–95
--- NOTE | 2017-09-15 07:15 | Family Medicine Progress Note ---
Progress Note Date of Service Sep 15, 2017.
[2017-09-15] MEDS: CARVEDILOL 6.25 MG TAB PO SCH (07:45)
[2017-09-15] MEDS: VALSARTAN 80 MG TAB PO SCH (07:45)
[2017-09-15] MEDS: MULTIVITAMIN TAB PO SCH (07:45)
[2017-09-15] MEDS: CARBIDOPA/LEVODOPA 25/100MG TAB PO SCH ×2 (07:45→12:46)
[2017-09-15] MEDS: ASPIRIN 81 MG ECTAB PO SCH (07:45)
--- NOTE | 2017-09-15 21:36 | Discharge Summary ---
Discharge Summary Date of Service Sep 15, 2017. Discharge Summary Admission Date: Sep 13, 2017 at 22:53 Discharge Date: Sep 15, 2017 Discharge Disposition: Home Principal Diagnosis: HTN urgency Problems/Secondary Diagnoses: (1) Hypertension Status: Chronic Immunizations: Have You Had Influenza Vaccine: N/A Influenza Vaccine Date: May 11, 2005 History of Tetanus Vaccine?: Yes History of Pneumococcal: 2004 History of Hepatitis B Vaccine: No Discharge Exam Review of Systems: Constitutional: No fever, No chills Respiratory: No cough, No sputum, No shortness of breath Cardiovascular: No chest pain, No palpitations Abdomen: No pain, No nausea, No vomiting Physical Exam: General Appearance: WD/WN, no apparent distress Respiratory/Chest: chest non-tender, lungs clear, normal breath sounds, no respiratory distress Cardiovascular: regular rate, rhythm, no edema, no gallop, no murmur Abdomen / GI: normal bowel sounds, non tender, soft, no organomegaly 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 The patient was given Labetalol in the ED and was admitted to for further BP monitoring and evaluation. The patient's BP was stable throughout the day, EKG and troponin were unremarkable. The patient also did not show any signs of end organ damage on labs or exam. Patient did not have any focal neurologic deficits. The patient was set to be discharged on day 1 but after becoming hypotensive upon receiving home meds, it was decided to keep the patient for one more night of monitoring. By morning the patient BP remained stable and was discharged. No changes were deemed ness to BP med regimen. The patient was encouraged to follow up in the outpatient with Dr. Morales this week. Patient had a similar episode last year. It is possible that these episodes are due to autonomic instability. Total Time Spent: Less than 30 minutes This includes examination of the patient, discharge planning, medication reconciliation, and communication with other providers. Resident Physician Supervision Note: I was present with Dr. Olivarez during the history and exam. I discussed the case with the resident and agree with the findings and plan as documented in the note. The patient's blood pressure is well controlled at current on her home regimen. Attempts at increased medications resulted in hypotension. She is symptom free today and feels ready for discharge. Discussed home BP monitoring and need for follow up with PCP in next seven days. Documented By: Armaan Lundberg Discharge Instructions Please refer to the electronic Patient Visit Report (Discharge Instructions) for additional information. Additional Copies To Andrés Morales M.D.
== END 2017-09-15 16:15 | disposition home or self-care (01) ==
LOC: C.EDB 17:02 → C.MED 22:53 → ENRESERV 23:31
PROVIDERS: ADMIT Student in an Organized Health Care Education/Training Program; ATTEND Family Medicine
DX: I16.0 Hypertensive urgency (principal); G20 Parkinson's disease; I25.10 Atherosclerotic heart disease of native coronary artery without angina pectoris; E78.5 Hyperlipidemia, unspecified; I25.2 Old myocardial infarction; Z86.010 Personal history of colon polyps; Z85.41 Personal history of malignant neoplasm of cervix uteri; Z90.49 Acquired absence of other specified parts of digestive tract; Z79.82 Long term (current) use of aspirin; Z87.891 Personal history of nicotine dependence; Z90.710 Acquired absence of both cervix and uterus; Z82.49 Family history of ischemic heart disease and other diseases of the circulatory system; Z83.6 Family history of other diseases of the respiratory system

== ENCOUNTER 2017-09-19 15:15 | Emergency (ER) | payer BC ==
[~2017-09-19] VITALS: Ht 160 cm; Wt 75.3 kg
[~2017-09-19 15:15] MED LIST changes: -ATEN-173 PO; +CARV6.252 PO; -ENAL10TA88 PO; +FURO-85 PO; -HYDR-4717 PO; +VALS320T PO; -ZOLP5TAB6 PO
[2017-09-19 15:16] VITALS: TEMP 36.5; Ht 160 cm; Wt 75.3 kg
--- NOTE | 2017-09-19 15:51 | EMERGENCY ROOM VISIT NOTE ---
History Report prepared by Beatriz: Gerry Acevedo Under the Supervision of: Dr. Bryn Coelho M.D. First contact with patient: 15:29 Chief Complaint: HYPERTENSION Stated Complaint: HIGH BP History of Present Illness The patient is a 82 year old female who presents to the Emergency Room with complaints hypertension that was recorded prior to arrival. She has a past medical history of Parkinson's disease. The patient was seen in the ER four days ago for hypertension and was discharged with a follow up appointment scheduled for today. Prior to the appointment, the patient took her own blood pressure at home. She said that it read 225/115. She then called her neighbor to bring her to the ER. She is not experiencing any associated symptoms and denies fevers, chest pain, shortness of breath, palpitations, nausea, vomiting, abdominal pain, weakness, or numbness. She did take her medications this morning. Source of History: patient Onset: Prior to arrival Position: other (Global) Symptom Intensity: 225/115 Quality: other (HTN) Timing: constant Associated Symptoms: No fevers, No chest pain, No SOB, No nausea, No vomiting, No abdominal pain, No weakness, No numbness Review of Systems See HPI for pertinent positives & negatives. A total of 10 systems reviewed and were otherwise negative. Past Medical & Surgical Medical Problems: (1) Cervical cancer (2) Colon polyps (3) H/O non-ST elevation myocardial infarction (NSTEMI) (4) Hypertension (5) Hypertensive urgency (6) Precordial chest pain (7) Renal cyst, right (8) Shortness of breath Surgical Problems: (1) History of appendectomy Family History FH: COPD (chronic obstructive pulmonary disease) FH: cancer FH: heart disease FH: stroke Social History Smoking Status: Former Smoker Alcohol Use: occasionally Drug Use: none Marital Status: Housing Status: lives with family Occupation Status: retired Current/Historical Medications Scheduled Aspirin (Aspirin Ec), 81 MG PO QAM Calcium Carbonate-Vitamin D (Calcium 600 + D), 1 TAB PO DAILY Carbidopa/Levodopa (Sinemet 25MG/100MG), 1 TAB PO QID Carvedilol (Coreg), 6.25 MG PO BIDM Carvedilol (Coreg), 1 TAB PO BID Hydrochlorothiazide (Hctz), 12.5 MG PO DAILY Multivitamin (Multivitamin), 1 TAB PO DAILY [place]-3 Fatty Acids (Fish Oil), 1 CAP PO DAILY Simvastatin (Zocor), 20 MG PO QPM Valsartan (Diovan), 160 MG PO DAILY Scheduled PRN Nitroglycerin (Nitrostat), 0.4 MG UT UD PRN for Chest Pain Allergies Coded Allergies: Morphine (Verified Allergy, Unknown, 06/07/16) Physical Exam Vital Signs Date Time Temp Pulse Resp B/P (MAP) Pulse Ox O2 Delivery O2 Flow Rate FiO2 09/19/17 18:30 67 14 195/108 95 09/19/17 17:10 66 17 208/110 94 Room Air 09/19/17 16:30 64 09/19/17 16:26 63 18 225/115 94 Room Air 09/19/17 15:54 97 Room Air 09/19/17 15:16 36.5 66 18 220/122 94 Room Air Physical Exam GENERAL: Patient is a healthy-appearing well-nourished female HEAD: Normocephalic atraumatic EYES: Ocular movements intact pupils equal and react to light OROPHARYNX mucous membranes are moist no exudates present no erythema or edema present NECK: Supple no nuchal rigidity CHEST: Good equal expansion LUNGS: Clear and equal to auscultation CARDIAC: Normal S1 and S2 ABDOMEN: Soft nontender no guarding BACK: No CVA tenderness EXTREMITIES: No pain upon palpation normal muscle strength in all groups no clubbing cyanosis or edema NEURO: Patient is following commands and answering questions appropriately. Alert and oriented x3 Cranial Nerves 2-12 grossly intact Medical Decision & Procedures ER Provider Diagnostic Interpretation: Radiology results as stated below per my review and radiologist interpretation: CHEST ONE VIEW PORTABLE HISTORY: 82 years-old Female severe hypertension COMPARISON: Chest radiograph 09/13/2017 TECHNIQUE: Portable AP view of the chest. FINDINGS: The cardiac silhouette is upper limits of normal, unchanged. Atherosclerosis and tortuosity of the thoracic aorta. Mild biapical pleural-parenchymal scarring without pneumothorax, pleural effusion or focal airspace consolidation. No overt pulmonary edema. Bones appear osteopenic. Degenerative changes are seen within the shoulders and spine. Postoperative changes of the right humeral head. IMPRESSION: No acute process. The above report was generated using voice recognition software. It may contain grammatical, syntax or spelling errors. Electronically signed by: Da Landers M.D. 09/19/2017 4:13 PM Dictated Date/Time: 09/19/2017 4:11 PM Laboratory Results 09/19/17 15:35 Red Blood Count 4.87, Mean Corpuscular Volume 84.4, Mean Corpuscular Hemoglobin 29.0, Mean Corpuscular Hemoglobin Concent 34.3, Mean Platelet Volume 9.8, Neutrophils (%) (Auto) 56.9, Lymphocytes (%) (Auto) 29.9, Monocytes (%) (Auto) 10.2, Eosinophils (%) (Auto) 2.4, Basophils (%) (Auto) 0.3, Neutrophils # (Auto ) 4.09, Lymphocytes # (Auto) 2.15, Monocytes # (Auto) 0.73, Eosinophils # (Auto ) 0.17, Basophils # (Auto) 0.02 09/19/17 15:35 Test 09/19/17 15:35 09/19/17 16:00 White Blood Count 7.18 K/uL (4.8-10.8) Red Blood Count 4.87 M/uL (4.2-5.4) Hemoglobin 14.1 g/dL (12.0-16.0) Hematocrit 41.1 % (37-47) Mean Corpuscular Volume 84.4 fL (80-100) Mean Corpuscular Hemoglobin 29.0 pg (25-34) Mean Corpuscular Hemoglobin Concent 34.3 g/dl (32-36) Platelet Count 240 K/uL (130-400) Mean Platelet Volume 9.8 fL (7.4-10.4) Neutrophils (%) (Auto) 56.9 % Lymphocytes (%) (Auto) 29.9 % Monocytes (%) (Auto) 10.2 % Eosinophils (%) (Auto) 2.4 % Basophils (%) (Auto) 0.3 % Neutrophils # (Auto) 4.09 K/uL (1.4-6.5) Lymphocytes # (Auto) 2.15 K/uL (1.2-3.4) Monocytes # (Auto) 0.73 K/uL (0.11-0.59) Eosinophils # (Auto) 0.17 K/uL (0-0.5) Basophils # (Auto) 0.02 K/uL (0-0.2) RDW Standard Deviation 45.1 fL (36.4-46.3) RDW Coefficient of Variation 14.5 % (11.5-14.5) Immature Granulocyte % (Auto) 0.3 % Immature Granulocyte # (Auto) 0.02 K/uL (0.00-0.02) Prothrombin Time 10.7 SECONDS (9.0-12.0) Prothromb Time International Ratio 1.0 (0.9-1.1) Activated Partial Thromboplast Time 28.2 SECONDS (21.0-31.0) Partial Thromboplastin Ratio 1.1 Anion Gap 7.0 mmol/L (3-11) Est Creatinine Clear Calc Drug Dose 49.8 ml/min Estimated GFR () 73.4 Estimated GFR (Non- 63.4 BUN/Creatinine Ratio 23.4 (10-20) Calcium Level 9.3 mg/dl (8.5-10.1) Total Bilirubin 0.4 mg/dl (0.2-1) Direct Bilirubin 0.1 mg/dl (0-0.2) Aspartate Amino Transf (AST/SGOT) 21 U/L (15-37) Alanine Aminotransferase (ALT/SGPT) 14 U/L (12-78) Alkaline Phosphatase 68 U/L (45-117) Total Creatine Kinase 92 U/L (26-192) Creatine Kinase MB 1.8 ng/ml (0.5-3.6) Creatine Kinase MB Ratio 2.0 (0-3.0) Troponin I < 0.015 ng/ml (0-0.045) Total Protein 7.4 gm/dl (6.4-8.2) Albumin 3.7 gm/dl (3.4-5.0) Lipase 158 U/L (73-393) Thyroid Stimulating Hormone (TSH) 3.860 uIu/ml (0.300-4.500) Urine Color YELLOW Urine Appearance CLEAR (CLEAR) Urine pH 7.5 (4.5-7.5) Urine Specific [place] 1.010 (1.000-1.030) Urine Protein NEG (NEG) Urine Glucose (UA) NEG (NEG) Urine Ketones NEG (NEG) Urine Occult Blood 1+ (NEG) Urine Nitrite NEG (NEG) Urine Bilirubin NEG (NEG) Urine Urobilinogen NEG (NEG) Urine Leukocyte Esterase NEG (NEG) Urine WBC (Auto) 0 /hpf (0-5) Urine RBC (Auto) 5-10 /hpf (0-4) Urine Hyaline Casts (Auto) 0 /lpf (0-5) Urine Epithelial Cells (Auto) 5-10 /lpf (0-5) Urine Bacteria (Auto) NEG (NEG) Labs reviewed by ED physician. Medications Administered Medications (Trade) Dose Ordered Sig/Calvin Route Start Time Stop Time Status Last Admin Dose Admin Carvedilol (Coreg Tab) 6.25 mg NOW STAT PO 09/19/17 16:09 09/19/17 16:11 DC 09/19/17 16:25 6.25 MG ECG Indication: other (Hypertension) Rate (beats per minute): 65 Rhythm: normal sinus Findings: no acute ischemic change, no ectopy Change: Patient's electrocardiogram per my interpretation. ED Course 1529: Past medical records reviewed. The patient was evaluated in room C11B. A complete history and physical examination was performed. 1609: Ordered Coreg Tab 6.25 mg PO Medical Decision Differential diagnosis: Etiologies such as metabolic, infection, hypo/hyperglycemia, electrolyte abnormalities, cardiac sources, intracerebral event, toxicologic, neurologic, as well as others were entertained. This is an 82-year-old female who was sent in by the primary care physician's office over concerns about her blood pressure. The patient was recently admitted for hypertensive urgency however the patient is not having any symptoms. She does not feel dizzy she does not have a headache. I am not sure that she is not having autonomic dysfunction from her Parkinson's disease. However I will trial her on a higher dosage of her Coreg. I will note that the patient was hypotensive with her hydrochlorothiazide. She has normal laboratory work and I feel can be safely discharged for follow-up with her primary care physician. Patient was in agreement with the treatment plan. Medication Reconcilliation Current Medication List: was personally reviewed by me Blood Pressure Screening Patient's blood pressure: Elevated blood pressure Blood pressure disposition: Referred to PCP Impression Primary Impression: Hypertension Scribe Attestation The scribe's documentation has been prepared under my direction and personally reviewed by me in its entirety. I confirm that the note above accurately reflects all work, treatment, procedures, and medical decision making performed by me. Departure Information Dispostion Home / Self-Care Prescriptions Carvedilol (COREG) 12.5 Mg Tab 1 TAB PO BID for 30 Days, #60 TAB Prov: Laquita, Bryn M., MD 09/19/17 Referrals Andrés Morales M.D. (PCP) Forms HOME CARE DOCUMENTATION FORM, IMPORTANT VISIT INFORMATION, WORK / SCHOOL INSTRUCTIONS Patient Instructions Hypertension Control, Hypertension Dc, My [facility] Additional Instructions Increase Coreg to 12.5 twice a day You were found to have an elevated blood pressure today (>120 sytolic or >90 diastolic). Per medicare guidelines, you need to follow up with this blood pressure screening with your Primary Care Physician (PCP). For a new PCP call [phone]. You have been examined and treated today on an emergency basis only. This is not a substitute for, or an effort to provide, complete comprehensive medical care. It is impossible to recognize and treat all injuries or illnesses in a single emergency department visit. It is therefore important that you follow up closely with Dr Morales. Call as soon as possible for an appointment. Thank you for your time and consideration. I look forward to speaking with you again soon. Please don't hesitate to call us if you have any questions. Problem Qualifiers Primary Impression: Hypertension Hypertension type: unspecified Qualified Codes: I10 - Essential (primary) hypertension
[2017-09-19 15:54] VITALS: O2SAT 97
[2017-09-19 16:07] LABS: BASO % 0.3 %; BASO ABS # 0.02 K/uL (0-0.2); EOS % 2.4 %; EOS ABS # 0.17 K/uL (0-0.5); HEMATOCRIT 41.1 % (37-47); HEMOGLOBIN 14.1 g/dL (12.0-16.0); IG# 0.02 K/uL (0.00-0.02); LYMPH % 29.9 %; LYMPH ABS # 2.15 K/uL (1.2-3.4); MEAN CELL VOLUME 84.4 fL (80-100); MEAN CORPUSCULAR HGB CONC 34.3 g/dl (32-36); MEAN PLATELET VOLUME 9.8 fL (7.4-10.4); MONO % 10.2 %; MONO ABS # 0.73 K/uL (0.11-0.59); NEUT % 56.9 %; NEUT ABS # 4.09 K/uL (1.4-6.5); PLATELET COUNT 240 K/uL (130-400); RED CELL DISTRIBUTION WIDTH CV 14.5 % (11.5-14.5); RED CELL DISTRIBUTION WIDTH SD 45.1 fL (36.4-46.3); WHITE BLOOD COUNT 7.18 K/uL (4.8-10.8)
[2017-09-19] MEDS ORDERED: CARVEDILOL 6.25 MG TAB PO STA (16:09)
[2017-09-19 16:14] LABS: PTT PATIENT 28.2 SECONDS (21.0-31.0)
--- NOTE | 2017-09-19 16:14 | DIAGNOSTIC IMAGING REPORT ---
CHEST ONE VIEW PORTABLE HISTORY: 82 years-old Female severe hypertension COMPARISON: Chest radiograph 09/13/2017 TECHNIQUE: Portable AP view of the chest. FINDINGS: The cardiac silhouette is upper limits of normal, unchanged. Atherosclerosis and tortuosity of the thoracic aorta. Mild biapical pleural-parenchymal scarring without pneumothorax, pleural effusion or focal airspace consolidation. No overt pulmonary edema. Bones appear osteopenic. Degenerative changes are seen within the shoulders and spine. Postoperative changes of the right humeral head. IMPRESSION: No acute process. The above report was generated using voice recognition software. It may contain grammatical, syntax or spelling errors. Electronically signed by: Da Landers M.D. 09/19/2017 4:13 PM Dictated Date/Time: 09/19/2017 4:11 PM
[2017-09-19 16:17] LABS: ALBUMIN 3.7 gm/dl (3.4-5.0); ALT/SGPT 14 U/L (12-78); AST/SGOT 21 U/L (15-37); BLOOD UREA NITROGEN 20 mg/dl (7-18); CALCIUM 9.3 mg/dl (8.5-10.1); CARBON DIOXIDE 29 mmol/L (21-32); CREATININE 0.86 mg/dl (0.60-1.20); GLUCOSE 96 mg/dl (70-99); LIPASE 158 U/L (73-393); POTASSIUM 3.8 mmol/L (3.5-5.1); SODIUM 132 mmol/L (136-145)
[2017-09-19] MEDS ORDERED: HYDR25TA4 PO (16:17)
[2017-09-19] MEDS ORDERED: CARVEDILOL 3.125 MG TAB ONE (16:19)
[2017-09-19 16:28] LABS: ALKALINE PHOSPHATASE 68 U/L (45-117); CKMB 1.8 ng/ml (0.5-3.6); TOTAL PROTEIN 7.4 gm/dl (6.4-8.2)
[2017-09-19] MEDS ORDERED: CARV12.52 PO (17:29)
[2017-09-19 18:30] VITALS: BP 195/108; PULSE 67; O2SAT 95
[2017-09-19] MEDS ORDERED: OMEGCAP2 PO (22:19)
== END 2017-09-19 18:31 | disposition home or self-care (01) ==
LOC: C.EDB 15:16 → C.EDC 18:31
DX: I10 Essential (primary) hypertension (principal); G20 Parkinson's disease; Z85.41 Personal history of malignant neoplasm of cervix uteri; Z86.010 Personal history of colon polyps; I25.2 Old myocardial infarction; Z80.9 Family history of malignant neoplasm, unspecified; Z82.3 Family history of stroke; Z87.891 Personal history of nicotine dependence; Z79.82 Long term (current) use of aspirin; Z79.899 Other long term (current) drug therapy

== ENCOUNTER → 2017-09-26 | Outpatient (CLI) | payer BC ==
[~2017-09-26] MED LIST changes: +CARV12.52 PO; -FURO-85 PO; +HYDR25TA4 PO; +OMEGCAP2 PO
[2017-09-26 18:14] LABS: ALBUMIN 3.5 gm/dl (3.4-5.0); ALKALINE PHOSPHATASE 59 U/L (45-117); ALT/SGPT 11 U/L (12-78); AST/SGOT 22 U/L (15-37); BLOOD UREA NITROGEN 25 mg/dl (7-18); CALCIUM 9.1 mg/dl (8.5-10.1); CARBON DIOXIDE 28 mmol/L (21-32); CHOLESTEROL 119 mg/dl (0-200); CREATININE 0.98 mg/dl (0.60-1.20); GLUCOSE 72 mg/dl (70-99); LDL CHOLESTEROL CALCULATED 54 mg/dl; POTASSIUM 3.8 mmol/L (3.5-5.1); SODIUM 133 mmol/L (136-145); TOTAL PROTEIN 6.9 gm/dl (6.4-8.2)
== END | disposition home or self-care (01) ==
LOC: C.LABBFT 12:10
PROVIDERS: ATTEND Physician Assistant Medical
DX: I11.0 Hypertensive heart disease with heart failure (principal); E55.9 Vitamin D deficiency, unspecified; E78.00 Pure hypercholesterolemia, unspecified

== ENCOUNTER → 2017-10-02 | Outpatient (CLI) | payer BC ==
[2017-10-02 13:59] LABS: BLOOD UREA NITROGEN 22 mg/dl (7-18); CALCIUM 9.3 mg/dl (8.5-10.1); CARBON DIOXIDE 28 mmol/L (21-32); CREATININE 0.97 mg/dl (0.60-1.20); GLUCOSE 85 mg/dl (70-99); POTASSIUM 3.5 mmol/L (3.5-5.1); SODIUM 137 mmol/L (136-145)
== END | disposition home or self-care (01) ==
LOC: C.LABBFT 08:46
PROVIDERS: ATTEND Internal Medicine
DX: E55.9 Vitamin D deficiency, unspecified (principal); I10 Essential (primary) hypertension; E78.00 Pure hypercholesterolemia, unspecified

== ENCOUNTER → 2017-11-14 | Outpatient (CLI) | payer BC ==
--- NOTE | 2017-11-14 18:00 | DIAGNOSTIC IMAGING REPORT ---
LUMBAR SPINE 5 VIEWS HISTORY: Low back pain. Right leg weakness. COMPARISON: Lumbar spine 06/20/2006. FINDINGS: No fractures within the visualized osseous structures. Minimal S-shaped scoliosis of the lumbar spine. Posterior decompression fusion at L4-L5 with pedicle screws and rods. The left parotid is fractured and slightly displaced. Mild disc space narrowing at L3-L4. The sacrum is intact. IMPRESSION: 1. No bony fractures within the lumbar spine. 2. Posterior decompression and fusion at L4-L5 with pedicle screws and rods. The left tobi is fractured and slightly displaced. Electronically signed by: Lyle Yang M.D. 11/14/2017 5:59 PM Dictated Date/Time: 11/14/2017 5:56 PM
== END | disposition home or self-care (01) ==
LOC: C.RAD1850 16:31
PROVIDERS: ATTEND Physician Assistant Medical
DX: M54.5 Low back pain (principal); T84.216A Breakdown (mechanical) of internal fixation device of vertebrae, initial encounter; X58.XXXA Exposure to other specified factors, initial encounter

== ENCOUNTER → 2018-03-20 | Outpatient (CLI) | payer BC ==
[2018-03-20 12:33] LABS: ALBUMIN 3.4 gm/dl (3.4-5.0); BLOOD UREA NITROGEN 15 mg/dl (7-18); CALCIUM 8.4 mg/dl (8.5-10.1); CARBON DIOXIDE 27 mmol/L (21-32); CREATININE 0.87 mg/dl (0.60-1.20); GLUCOSE 86 mg/dl (70-99); PHOSPHORUS 2.3 mg/dl (2.5-4.9); POTASSIUM 3.6 mmol/L (3.5-5.1); SODIUM 133 mmol/L (136-145)
== END | disposition home or self-care (01) ==
LOC: C.LABBFT 07:41
PROVIDERS: ATTEND Internal Medicine Nephrology
DX: R09.89 Other specified symptoms and signs involving the circulatory and respiratory systems (principal); R31.9 Hematuria, unspecified

== ENCOUNTER 2021-04-03 07:14 | Observation (INO) ==
[2021-04-03] MEDS ORDERED: ASPIRIN CHEW 324 MG PO STA (07:41)
--- NOTE | 2021-04-03 07:50 | Emergency Department Note ---
History of Present Illness General Chief complaint: Chest Pain Stated complaint: Chest pain Time Seen by Provider: 04/03/21 07:31 Source: patient Mode of arrival: ambulatory Limitations: no limitations History of Present Illness This patient is a 86-year-old female who comes in after an episode of chest pain which around 6:15 AM while she was sitting in a chair getting ready for the [employer] it was a stabbing pain lasting about 10 to 15 minutes there was some radiation to her back it was 5 out of 10. Nothing seems to make it better or worse. There is no radiation to her arm or jaw. She felt slightly nauseated. No diaphoresis. No shortness of breath. No abdominal pain. She takes aspirin but did not take it. She takes blood pressure medicine but did not take blood pressure medication yet today. She came in by ambulance he did not receive any meds as she was asymptomatic by the time the crew arrived. She had an episode of chest pain once before like this in 2007 when she said she had a small heart attack. Since then she has had no chest pain. She is up-to-date on her Covid vaccine. Home Medications Medication Instructions Recorded Confirmed Type calcium carbonate 600 mg (1,500 1 tab PO BID tab 04/04/19 04/03/21 History mg)-vitamin D3 200 unit tablet (Calcium 600 + D(3)) multivitamin (Multiple Vitamins) 1 tab PO QAM 04/04/19 04/03/21 History cholecalciferol (vitamin D3) 25 4,000 units PO QAM cap 05/24/19 04/03/21 History mcg (1,000 unit) capsule (Vitamin D3) carbidopa 25 mg-levodopa 100 mg 2 tab PO QID tab 02/24/20 04/03/21 History tablet (Sinemet) aspirin 81 mg tablet,delayed 81 mg PO QAM 02/29/20 04/03/21 History release (Aspirin Low Dose) carbidopa ER 25 mg-levodopa 100 mg 2 tab PO HS 02/29/20 04/03/21 History tablet,extended release clotrimazole-betamethasone 1 1 applic TOPICAL BID #45 g 03/31/21 04/03/21 Rx %-0.05 % topical cream carvedilol 6.25 mg tablet (Coreg) 3.125 mg PO BID 04/03/21 04/03/21 History nitroglycerin 0.4 mg sublingual 0.4 mg SL Q5M PRN 04/03/21 04/03/21 History tablet (Nitrostat) simvastatin 20 mg tablet (Zocor) 20 mg PO HS 04/03/21 04/03/21 History Allergies Allergy/AdvReac Type Severity Reaction Status Date / Time morphine Allergy Unknown bottoms out Verified 04/03/21 08:26 amantadine AdvReac Severe could not Verified 04/03/21 08:26 wake up lisinopril AdvReac Severe blood Unverified 04/03/21 08:26 pressure bottoms out alendronate sodium AdvReac can't Verified 04/03/21 08:26 [From Fosamax] remember hydralazine AdvReac can't Verified 04/03/21 08:26 remember Past Med/Surg History Medical History (Updated 04/03/21 @ 14:22 by Kervin Peña MD) H/O non-ST elevation myocardial infarction (NSTEMI) Hypertensive urgency Hyponatremia Vertigo Surgical History History of varicose vein ligation S/P appendectomy S/P cataract surgery S/P hysterectomy S/P lumpectomy of breast S/P rotator cuff repair Family History Mother Myocardial infarction Diabetes Sister Breast cancer Father Stroke Denies family history of Ovarian cancer Prostate cancer Congenital kidney disease Colorectal cancer Social History Smoking Status: Never smoker Tobacco Type: Cigarettes Age Started Using Tobacco: 19; Age Quit Using Tobacco: 41; packs per day: 1.5; Years Smoked: 22; Cigarettes Per Day: 30; Number of Years Since Quit: 43; Second Hand Exposure: No; Hx Alcohol Use: No Hx Substance Use: No Preferred Language: Greek Communication Ability: Effective Hearing Ability: Normal Beliefs That Will Affect Care: None marital status: Current Living Situation: Spouse current occupational status: retired current occupation: Worked in a [employer] in [place] Feels Safe at Home: Yes Childhood Exposure to Second-Hand Smoke: No caffeine: Yes during the past year weight has: remained stable Dental Care, Regularly: Yes Physical Activity Frequency: Does not Exercise Seatbelt Use: always Sunscreen Use: No Review of Systems A total of 10 systems reviewed and were otherwise negative Physical Exam Vital Signs Vital Signs - 24 hr 04/03/21 07:03 04/03/21 07:27 04/03/21 07:28 Temperature 36.5 C 36.5 C Temperature Source Oral Oral Pulse Rate 61 59 L Pulse Rate [Apical] 61 Pulse Rate from SpO2 Sensor 59 L Pulse Rhythm Regular Pulse Rhythm [Apical] Regular Pulse Strength Normal Pulse Strength [Apical] Normal Respiratory Rate 18 18 21 Respiratory Effort / Characteristics Non-Labored Spontaneous Spontaneous Respiratory Depth Normal Normal Respiratory Pattern Regular Regular Blood Pressure 231/113 H 231/113 H Blood Pressure [Left Arm] 231/113 H Blood Pressure Mean 152 152 Blood Pressure Mean [Left Arm] 152 Blood Pressure Position Semi-fowlers Blood Pressure Position [Left Arm] Semi-fowlers Pulse Oximetry 94 94 95 Oxygen Delivery Method Room Air Room Air Oxygen Flow Rate 0 0 Sepsis Recent Fever Within 48 Hours No Sepsis New/Unexplained Change in Mental Status No Sepsis Action Taken by Nursing No Action Required 04/03/21 07:41 04/03/21 08:03 04/03/21 09:00 Temperature Temperature Source Pulse Rate 60 60 63 Pulse Rate [Apical] Pulse Rate from SpO2 Sensor 60 59 L Pulse Rhythm Regular Pulse Rhythm [Apical] Pulse Strength Pulse Strength [Apical] Respiratory Rate 18 15 17 Respiratory Effort / Characteristics Respiratory Depth Respiratory Pattern Blood Pressure 236/118 H 220/124 H Blood Pressure [Left Arm] Blood Pressure Mean 157 156 Blood Pressure Mean [Left Arm] Blood Pressure Position Blood Pressure Position [Left Arm] Pulse Oximetry 94 95 95 Oxygen Delivery Method Room Air Oxygen Flow Rate Sepsis Recent Fever Within 48 Hours Sepsis New/Unexplained Change in Mental Status Sepsis Action Taken by Nursing 04/03/21 09:32 04/03/21 10:00 04/03/21 10:30 Temperature Temperature Source Pulse Rate 70 64 65 Pulse Rate [Apical] Pulse Rate from SpO2 Sensor 68 64 65 Pulse Rhythm Pulse Rhythm [Apical] Pulse Strength Pulse Strength [Apical] Respiratory Rate 12 15 13 Respiratory Effort / Characteristics Respiratory Depth Respiratory Pattern Blood Pressure 212/116 H 239/118 H Blood Pressure [Left Arm] Blood Pressure Mean 148 158 Blood Pressure Mean [Left Arm] Blood Pressure Position Blood Pressure Position [Left Arm] Pulse Oximetry 95 96 95 Oxygen Delivery Method Room Air Room Air Room Air Oxygen Flow Rate Sepsis Recent Fever Within 48 Hours Sepsis New/Unexplained Change in Mental Status Sepsis Action Taken by Nursing 04/03/21 11:00 Temperature Temperature Source Pulse Rate 63 Pulse Rate [Apical] Pulse Rate from SpO2 Sensor 64 Pulse Rhythm Pulse Rhythm [Apical] Pulse Strength Pulse Strength [Apical] Respiratory Rate 14 Respiratory Effort / Characteristics Respiratory Depth Respiratory Pattern Blood Pressure 218/118 H Blood Pressure [Left Arm] Blood Pressure Mean 151 Blood Pressure Mean [Left Arm] Blood Pressure Position Blood Pressure Position [Left Arm] Pulse Oximetry 94 Oxygen Delivery Method Room Air Oxygen Flow Rate Sepsis Recent Fever Within 48 Hours Sepsis New/Unexplained Change in Mental Status Sepsis Action Taken by Nursing General: Well developed well nourished older female who appears in no acute distress, breathing comfortably on room air. Normal speech HEENT: Normal cephalic atraumatic. Pupils are equal round and reactive to light. Extraocular movements are intact. Oropharynx is pink with moist mucous membranes. No swelling of the mouth lips or tongue. Neck: Supple with a midline trachea. No meningeal signs or stiffness, no JVD or bruits. No Stridor. Chest: Clear to auscultation bilaterally. No wheezes or rhonchi. No increased work of breathing. Heart: Regular rate and rhythm without murmurs or gallops. Abdomen: Soft nontender, nondistended without rebound guarding or rigidity. Extremities: No cyanosis clubbing or edema. No calf tenderness or assymetry Spine/Back. Non tender to palpation. No CVA tenderness Skin: Good turgor without rashes. Neurologic exam: Cranial nerves two through 12 are intact. Motor and sensation are intact and symmetrical throughout. Course Administered Medications Discontinued Medications Acetaminophen (Acetaminophen 325 Mg Tab) 650 mg PO NOW STA Stop: 04/03/21 12:09 Last Admin: 04/03/21 12:35 Dose: 650 mg Documented by: [id number] Aspirin (Aspirin Chew 324 Mg) 324 mg PO NOW STA Stop: 04/03/21 07:42 Last Admin: 04/03/21 07:59 Dose: 324 mg Documented by: [id number] Carbidopa/Levodopa (Carbidopa/Levodopa 25/100mg Tab) 2 tab PO ONE STA Stop: 04/03/21 12:12 Last Admin: 04/03/21 13:15 Dose: 2 tab Documented by: [id number] Carvedilol (Carvedilol 3.125 Mg Tab) 3.125 mg PO NOW ONE Stop: 04/03/21 08:28 Last Admin: 04/03/21 08:42 Dose: 3.125 mg Documented by: [id number] Ioversol (Optiray 320 125ml) 118 ml IV ONCE ONE Stop: 04/03/21 08:33 Last Admin: 04/03/21 08:32 Dose: 118 ml Documented by: [id number] Nitroglycerin (Nitroglycerin 2% Ointment 30gm Tube) Confirm Administered Dose 18 inch .ROUTE .STK-MED ONE Stop: 04/03/21 11:21 Last Admin: 04/03/21 11:22 Dose: 0.5 inch Documented by: [id number] Medical Decision Making Differential Diagnosis Acute coronary syndrome, arrhythmia, GERD, musculoskeletal, pneumonia, pneumothorax, aortic disease, Covid Medical Records Attestation: I reviewed the patient's medical records. Home Medications Current Medication List: was personally reviewed by me Laboratory Data Attestation: I reviewed the patient's lab results. Result diagrams: 04/03/21 07:03 04/03/21 07:03 Lab Results 04/03/21 04/03/21 04/03/21 Range/Units 07:03 07:03 07:03 WBC 7.28 (4.8-10.8) K/uL RBC 4.59 (4.2-5.4) M/uL Hgb 13.3 (12.0-16.0) g/dL Hct 39.6 (37-47) % MCV 86.3 (80-100) fL MCH 29.0 (25-34) pg MCHC 33.6 (32-36) g/dL RDW Std Deviation 47.6 H (36.4-46.3) fL RDW Coeff of Radha 15.1 H (11.5-14.5) % Plt Count 246 (130-400) K/uL MPV 9.6 (7.4-10.4) fL Immature Gran % (Auto) 0.3 % Neut % (Auto) 54.4 % Lymph % (Auto) 33.1 % [place] % (Auto) 9.6 % Eos % (Auto) 2.3 % Baso % (Auto) 0.3 % Neut # (Auto) 3.96 (1.4-6.5) K/uL Lymph # (Auto) 2.41 (1.2-3.4) K/uL [place] # (Auto) 0.70 H (0.11-0.59) K/uL Eos # (Auto) 0.17 (0-0.5) K/uL Baso # (Auto) 0.02 (0-0.2) K/uL Immature Gran # (Auto) 0.02 (0.00-0.02) K/uL APTT 27.6 (21.0-31.0) Seconds PTT Ratio 1.0 Sodium 136 (136-145) mmol/L Potassium 3.7 (3.5-5.1) mmol/L Chloride 103 (98-107) mmol/L Carbon Dioxide 26 (21-32) mmol/L Anion Gap 7.0 (3-11) BUN 22 H (7-18) mg/dl Creatinine 0.74 (0.6-1.2) mg/dl Est Cr Clr Drug Dosing 51.7 ml/min Est GFR ( Amer) 85.6 ml/min Est GFR (Non-Af Amer) 73.9 ml/min BUN/Creatinine Ratio 29.7 H (10-20) Glucose 86 (70-99) mg/dl Calcium 9.1 (8.5-10.1) mg/dl Total Bilirubin 0.6 (0.2-1) mg/dl AST 16 (15-37) U/L ALT 7 L (12-78) U/L Alkaline Phosphatase 50 (45-117) U/L Troponin I < 0.015 (0-0.045) ng/ml Total Protein 6.8 (6.4-8.2) gm/dl Albumin 3.5 (3.4-5.0) gm/dl Globulin 3.3 (2.5-4.0) gm/dl Albumin/Globulin Ratio 1.1 (0.9-2) Lipase 136 (73-393) U/L COVID-19 Eval Order SARS-CoV-2 (PCR) (Negative) 04/03/21 04/03/21 Range/Units 08:58 08:58 WBC (4.8-10.8) K/uL RBC (4.2-5.4) M/uL Hgb (12.0-16.0) g/dL Hct (37-47) % MCV (80-100) fL MCH (25-34) pg MCHC (32-36) g/dL RDW Std Deviation (36.4-46.3) fL RDW Coeff of Radha (11.5-14.5) % Plt Count (130-400) K/uL MPV (7.4-10.4) fL Immature Gran % (Auto) % Neut % (Auto) % Lymph % (Auto) % [place] % (Auto) % Eos % (Auto) % Baso % (Auto) % Neut # (Auto) (1.4-6.5) K/uL Lymph # (Auto) (1.2-3.4) K/uL [place] # (Auto) (0.11-0.59) K/uL Eos # (Auto) (0-0.5) K/uL Baso # (Auto) (0-0.2) K/uL Immature Gran # (Auto) (0.00-0.02) K/uL APTT (21.0-31.0) Seconds PTT Ratio Sodium (136-145) mmol/L Potassium (3.5-5.1) mmol/L Chloride (98-107) mmol/L Carbon Dioxide (21-32) mmol/L Anion Gap (3-11) BUN (7-18) mg/dl Creatinine (0.6-1.2) mg/dl Est Cr Clr Drug Dosing ml/min Est GFR ( Amer) ml/min Est GFR (Non-Af Amer) ml/min BUN/Creatinine Ratio (10-20) Glucose (70-99) mg/dl Calcium (8.5-10.1) mg/dl Total Bilirubin (0.2-1) mg/dl AST (15-37) U/L ALT (12-78) U/L Alkaline Phosphatase (45-117) U/L Troponin I (0-0.045) ng/ml Total Protein (6.4-8.2) gm/dl Albumin (3.4-5.0) gm/dl Globulin (2.5-4.0) gm/dl Albumin/Globulin Ratio (0.9-2) Lipase (73-393) U/L COVID-19 Eval Order Covid19 at [facility] SARS-CoV-2 (PCR) NEGATIVE (Negative) Imaging Data Attestation: I personally reviewed and interpreted this imaging study as follows: My Impression: Chest x-rayno acute infiltrate, failure, pneumothorax seen Radiologist's Impression: Chest X-Ray 04/03/21 07:41 XR chest 1V portable CLINICAL HISTORY: Chest Pain COMPARISON STUDY: Chest radiograph March 17, 2020. Chest CT May 14, 2020. FINDINGS: Lung volumes are normal. Lungs are clear. There is no pneumothorax or pleural effusion. Cardiac size is normal. Mediastinal contours are normal. There is no evidence for pulmonary edema. Patient is mildly rotated. Postoperative findings within the right shoulder are incidentally noted. IMPRESSION: No acute cardiopulmonary findings. ACT 112: Negative or not required by law. Electronically signed by: Leon Velarde M.D. 04/03/2021 8:25 AM Chest CTA 04/03/21 08:25 CT ANGIOGRAPHY OF THE CHEST DISSECTION PROTOCOL CLINICAL HISTORY: Chest pain. Evaluate for dissection. COMPARISON STUDY: Chest CT May 14, 2020. Chest radiograph performed earlier today. TECHNIQUE: Before and following the IV administration of 118 mL of Optiray, helical axial images of the chest were obtained. Maximal intensity projections and sagittal and coronal reformats were viewed on an independent 3D workstation. IV contrast was administered without complication. Automated exposure control was utilized for the study. A dose lowering technique was utilized adhering to the principles of ALARA. CT DOSE: 408.28 mGy.cm FINDINGS: The caliber of the thoracic aorta is normal. There is no intramural hematoma or thoracic aortic dissection. No pericardial effusion. No enlarged thoracic lymph nodes are present. No pulmonary emboli are identified. No pneumothorax or pleural effusion is noted. There is no consolidation to suggest pneumonia. Mild tree-in-bud nodules with mild bronchiectasis and mucus plugging within the right lung are similar to CT of May 14, 2020. Subpleural left lower lobe opacity is unchanged. This favors scarring or atelectasis. There is mild emphysema. Several old mild compression fractures within the thoracic spine are noted. A water attenuation right renal lesion is partially imaged on this exam. This measures at least 5.3 cm. This favors a renal cyst. IMPRESSION: 1. No thoracic aortic dissection. 2. No acute process within the chest. 3. Mild emphysema. 4. No change in mild tree-in-bud nodules, bronchiectasis and mucus plugging within the right lung since chest CT of May 14, 2020. ACT 112: Negative or not required by law. Electronically signed by: Leon Velarde M.D. 04/03/2021 9:45 AM ECG Data Attestation: I personally reviewed and interpreted this ECG as follows: Indication: + chest pain Rate (beats per minute): 59 Rhythm: + sinus bradycardia ECG Intervals/blocks: + Normal QRS and + Normal QT ECG [place]: + Normal ECG ST segments: + T-wave inversions (inf) Comparison ECG Date: from (05/14/20) Change: the following changes noted (T waves inferiorly are more inverted/nonspecific) MDM Narrative This patient comes in as described above. She had episode chest pain. She feels better now. She does have a cardiac history. She has not taken aspirin she was given chewable aspirin 324 mg. IV access was established, EKG and chest x-ray is obtained. On her EKG her T waves are more nonspecific inferiorly when compared to old. She has remained stable without any further chest pain. Her troponin is not elevated. Chest x-ray does not show congestive heart failure pneumonia or pneumothorax. Chest CT shows no evidence aortic dissection or other acute pathology. Her blood pressure was significantly elevated however she did not take her normal medications I did give her her regular normal dose of Coreg 3.125 mg. Upon reassessment her blood pressure still remained high and at that time I had discussed it with the on-call [facility] hospitalist Dr. Escalante who will see the patient in order for other blood pressure medications. He will also admit her for treatment and evaluation of her chest pain. Covid testing was negative. Continuous cardiac monitoring: Order was placed in EMR for continuous cardiac monitoring. Upon my interpretation the patient was noted to be in normal sinus rhythm with a rate of 60. Impression & Plan Chest pain, HTN (hypertension), Lab test negative for COVID-19 virus, Hyponatremia, T wave inversion in EKG Discharge Plan Visit Data Chief Complaint: Chest Pain Stated Complaint: Chest pain ED Provider: Kervin Peña Discharge Problem: Chest pain, HTN (hypertension), Lab test negative for COVID-19 virus, Hyponatremia, T wave inversion in EKG Patient Disposition: Admitted As Inpatient Discharge Instructions Interventions: ED Discharge Assessment Last Done: 04/03/21 12:48
[2021-04-03 08:00] LABS: Basophils # (auto) 0.02 K/uL (0-0.2); Basophils % (auto) 0.3 %; Eosinophils # (auto) 0.17 K/uL (0-0.5); Eosinophils % (auto) 2.3 %; Hematocrit (blood only) 39.6 % (37-47); Hemoglobin 13.3 g/dL (12.0-16.0); Immature Granulocytes # (auto) 0.02 K/uL (0.00-0.02); Immature Granulocytes % (auto) 0.3 %; Lymphocytes # (auto) 2.41 K/uL (1.2-3.4); Lymphocytes % (auto) 33.1 %; Mean Corpuscular Hgb Conc 33.6 g/dL (32-36); Mean Corpuscular Volume 86.3 fL (80-100); Mean Platelet Volume 9.6 fL (7.4-10.4); Monocytes % (auto) 9.6 %; Neutrophils # (auto) 3.96 K/uL (1.4-6.5); Neutrophils % (auto) 54.4 %; Platelet Count 246 K/uL (130-400); RDW Coefficient of Variation 15.1 % (11.5-14.5); RDW Standard Deviation 47.6 fL (36.4-46.3); Red Blood Count 4.59 M/uL (4.2-5.4); White Blood Count 7.28 K/uL (4.8-10.8)
[2021-04-03 08:05] LABS: Partial Thromboplastin Time 27.6 Seconds (21.0-31.0)
[2021-04-03 08:08] LABS: Alanine Aminotransferase 7 U/L (12-78); Albumin Level 3.5 gm/dl (3.4-5.0); Aspartate Aminotransferase 16 U/L (15-37); BUN Creatinine Ratio 29.7 (10-20); Blood Urea Nitrogen 22 mg/dl (7-18); Calcium 9.1 mg/dl (8.5-10.1); Carbon Dioxide 26 mmol/L (21-32); Chloride 103 mmol/L (98-107); Creatinine Clr Calc Pharmacy 51.7 ml/min; Est GFR (African American) 85.6 ml/min; Est GFR (Non-African American) 73.9 ml/min; Glucose 86 mg/dl (70-99); Lipase 136 U/L (73-393); Potassium 3.7 mmol/L (3.5-5.1); Sodium 136 mmol/L (136-145)
[2021-04-03 08:13] LABS: Albumin Globulin Ratio 1.1 (0.9-2); Alkaline Phosphatase 50 U/L (45-117); Bilirubin,Total 0.6 mg/dl (0.2-1); Globulin 3.3 gm/dl (2.5-4.0); Total Protein 6.8 gm/dl (6.4-8.2); Troponin I < 0.015 ng/ml (0-0.045)
--- NOTE | 2021-04-03 08:26 | XRay Report ---
XR chest 1V portable CLINICAL HISTORY: Chest Pain COMPARISON STUDY: Chest radiograph March 17, 2020. Chest CT May 14, 2020. FINDINGS: Lung volumes are normal. Lungs are clear. There is no pneumothorax or pleural effusion. Car diac size is normal. Mediastinal contours are normal. There is no evidence for pulmonary edema. Patie nt is mildly rotated. Postoperative findings within the right shoulder are incidentally noted. IMPRESSION: No acute cardiopulmonary findings. ACT 112: Negative or not required by law. Electronically signed by: Leon Velarde M.D. 04/03/2021 8:25 AM
[2021-04-03] MEDS ORDERED: carvediloL 3.125 MG TAB PO ONE (08:27)
[2021-04-03] MEDS ORDERED: OPTIRAY 320 125ml IV ONE (08:32)
--- NOTE | 2021-04-03 09:46 | CT Scan Report ---
CT ANGIOGRAPHY OF THE CHEST DISSECTION PROTOCOL CLINICAL HISTORY: Chest pain. Evaluate for dissection. COMPARISON STUDY: Chest CT May 14, 2020. Chest radiograph performed earlier today. TECHNIQUE: Before and following the IV administration of 118 mL of Optiray, helical axial images of t he chest were obtained. Maximal intensity projections and sagittal and coronal reformats were viewed on an independent 3D workstation. IV contrast was administered without complication. Automated exp osure control was utilized for the study. A dose lowering technique was utilized adhering to the jayla Morales. CT DOSE: 408.28 mGy.cm FINDINGS: The caliber of the thoracic aorta is normal. There is no intramural hematoma or thoracic a ortic dissection. No pericardial effusion. No enlarged thoracic lymph nodes are present. No pulmonary emboli are identified. No pneumothorax or pleural effusion is noted. There is no consolidation to robledo ggest pneumonia. Mild tree-in-bud nodules with mild bronchiectasis and mucus plugging within the righ t lung are similar to CT of May 14, 2020. Subpleural left lower lobe opacity is unchanged. This fa vors scarring or atelectasis. There is mild emphysema. Several old mild compression fractures within the thoracic spine are noted. A water attenuation right renal lesion is partially imaged on this exam . This measures at least 5.3 cm. This favors a renal cyst. IMPRESSION: 1. No thoracic aortic dissection. 2. No acute process within the chest. 3. Mild emphysema. 4. No change in mild tree-in-bud nodules, bronchiectasis and mucus plugging within the right lung sin ce chest CT of May 14, 2020. ACT 112: Negative or not required by law. Electronically signed by: Leon Velarde M.D. 04/03/2021 9:45 AM
--- NOTE | 2021-04-03 10:55 | History & Physical Report ---
Date of Service April 03, 2021 Assessment & Plan (1) Chest pain: Plan: Christiane is a 86-year-old female with a past medical history of chest pain with a catheterization in 2007 without acute findings and not requiring PCI, Parkinson's with dementia, labile hypertension, hyperlipidemia,Thyroid nodules, and osteopenia who presented to [facility] with 15 minutes of chest pain radiating through to her back and who is being admitted for observation and management of labile hypertension. Chest pain Lasted 15 minutes, resolved by arrival to emergency department without administration of nitro or aspirin Patient given aspirin full dose on arrival to ER Troponin negative on admission, trend troponin x2 Last echo reviewed, preserved EF. Repeat TTE pending EKG reviewed, sinus bradycardia without T wave inversions or ST elevation/depression. Patient denies history of tobacco use. Patient reports high stress at home, is in the process of moving and is the 1 year anniversary of her passing. Chest x-ray: No acute findings CTA:No thoracic aortic dissection. No acute process within the chest. Mild emphysema. No change in mild tree-in-bud nodules, bronchiectasis and mucus plugging within the right lung since chest CT of May 14, 2020. Patient hypertensive on admission, managed as noted in labile hypertension. Continue to follow clinically. (2) Labile hypertension: Plan: Patient reports history of labile hypertension with rapid swings between 200s to sub-100s With history of Parkinson's disease Patient reports she is "very sensitive "to blood pressure medications, and cannot take any medicine ending in -pril. Will avoid JONNY/ARB at this time Of review of provider notes, has been normotensive at home checks since 01/01 on carvedilol twice daily Asymptomatic at time of bedside assessment, but remains hypertensive to 220/115 Patient missed morning beta-evelia, carvedilol home dose given in ER Nitro paste 0.5 inch, decrease to 0.25 inch if blood pressure decrease less than 150/95 and wipe if decreases less than 120/90 TTE as noted in chest pain Patient with history of lightheadedness dizziness, Holter monitor report from 05/2020 reviewed which showed sinus rhythm and no AV block/pauses or ventricular arrhythmia. Some dizziness correlated with atrial premature depolarizations. Avoided labetalol/esmolol admission 2/2 HR of 60, history of concern for ischemia, sinus bradycardia, and patient report of rapid BP drop (3) Parkinson's disease: Plan: Well-controlled, continue home carbidopalevodopa 25/102 tablets5 AM, 9 AM, 1 PM, 5 PM, 9 PM and Sinemet CR 25/100 10 PM Amantadine not tolerated in the past Fall precautions (4) Vitamin D deficiency: Plan: V continue vitamin D supplementation (5) Bradycardia on ECG: Plan: EKG as noted in chest pain Avoided additional chronotropic agents for management of hypertension on admission Continue to follow, no lightheadedness/dizziness (6) Hypercholesterolemia: Plan: Continue home simvastatin (7) H/O non-ST elevation myocardial infarction (NSTEMI): Plan: Prior echo as noted in chest pain Continue Coreg, daily aspirin, simvastatin Patient not on an JONNY due to intolerance and hypotension DVT prophylaxis: Lovenox Diet: Heart healthy Disposition: Medical telemetry, observation CODE STATUS: Full code, discussed with patient and daughter at bedside. Patient would like her son/daughter to be decision-makers in the event of an emergency. Time spent including review of notes/labs/images, discussion of case with ER provider, coordination of care, discussion with patient, and physical exam approximately 70 minutes This documentation was completed with the assistance of Dragon dictation; please excuse any translation errors which may have occurred. History of Present Illness Chief Complaint: Chest pain Primary Care Provider: Andrés Morales MD Janet presents to the ER for chest pain. She reports her symptoms started a little after 6:00am. Was getting ready to go to the [email or web address], sitting. Had soem similar episodes in March which only lasted 15-20 minutes. No chest pain with exertion, does not go up stairs but goes on work. Pain went through to her back. 5-6/10 in intensity. 0/10 by time of arrival in the ER. No shortness of breath, no headache, no vision change. No other symptoms. Took carvedilol in ED, missed home dose this morning. No other HTN medications. Has had 'bottomed out low pressures' intermittent in the past. Did not tolerate lisinopril or 'anything with a -pril'. She reports that she has intermittently high blood pressure at home, but does not check it regularly. She notes that her blood pressure has rapidly swung from low 200s to less than 100 systolic very quickly with blood pressure treatment in the past. She reports she has been Under stress at home. Moving to [place] to live with son justice . Is under a lot of stress with all the changes. Today is also the anniverary of her passing. She is seen with her daughter at bedside, who reports she is managing but today has an especially stressful day for her. Denies other symptoms. Has not had any sick contacts. Has been vaccinated with 2 doses of Covid vaccination, not sure which brand, last dose in January. Denies shortness of breath, difficulty breathing, cough, sputum production, fever, chills, sweats, nausea, vomiting, diarrhea. Endorses some tremor well controlled with her Parkinson's medicines. MedHx: Parkinsons, takes carbidopa-levodopa which works 'well very' for her. Also takes a simvastatin. 2007 had a 'mini-heart attack' with a cath, but no blockage was found. No stents, no heart surgery. PCP: Dr. Morales. Does not follow with a core maker helper since 2007. Medications: Reviewed Surgical History: Reviewed Allergies: Reviewed Social History: Lives at home alone previously, in the process of moving in with her son in [place]. No stairs in the home. Denies tobacco, alcohol, and recreational drug use. Code Status: Full code, confirmed with patient and daughter at bedside. Patient would want her son and her daughter to be her surrogate decision makers if she were unable to make decisions for herself. Allergies Allergy/AdvReac Type Severity Reaction Status Date / Time morphine Allergy Unknown bottoms out Verified 04/03/21 08:26 amantadine AdvReac Severe could not Verified 04/03/21 08:26 wake up lisinopril AdvReac Severe blood Unverified 04/03/21 08:26 pressure bottoms out alendronate sodium AdvReac can't Verified 04/03/21 08:26 [From Fosamax] remember hydralazine AdvReac can't Verified 04/03/21 08:26 remember Home Medications Medication Instructions Recorded Confirmed Type calcium carbonate 600 mg (1,500 1 tab PO BID tab 04/04/19 04/03/21 History mg)-vitamin D3 200 unit tablet (Calcium 600 + D(3)) multivitamin (Multiple Vitamins) 1 tab PO QAM 04/04/19 04/03/21 History cholecalciferol (vitamin D3) 25 4,000 units PO QAM cap 05/24/19 04/03/21 History mcg (1,000 unit) capsule (Vitamin D3) carbidopa 25 mg-levodopa 100 mg 2 tab PO QID tab 02/24/20 04/03/21 History tablet (Sinemet) aspirin 81 mg tablet,delayed 81 mg PO QAM 02/29/20 04/03/21 History release (Aspirin Low Dose) carbidopa ER 25 mg-levodopa 100 mg 2 tab PO HS 02/29/20 04/03/21 History tablet,extended release clotrimazole-betamethasone 1 1 applic TOPICAL BID #45 g 03/31/21 04/03/21 Rx %-0.05 % topical cream carvedilol 6.25 mg tablet (Coreg) 3.125 mg PO BID 04/03/21 04/03/21 History nitroglycerin 0.4 mg sublingual 0.4 mg SL Q5M PRN 04/03/21 04/03/21 History tablet (Nitrostat) simvastatin 20 mg tablet (Zocor) 20 mg PO HS 04/03/21 04/03/21 History Past Med/Surg History Medical History (Updated 04/03/21 @ 11:42 by Louie Escalante MD) H/O non-ST elevation myocardial infarction (NSTEMI) Hypertensive urgency Hyponatremia Vertigo Surgical History History of varicose vein ligation S/P appendectomy S/P cataract surgery S/P hysterectomy S/P lumpectomy of breast S/P rotator cuff repair Family History Mother Myocardial infarction Diabetes Sister Breast cancer Father Stroke Denies family history of Ovarian cancer Prostate cancer Congenital kidney disease Colorectal cancer Social History Smoking Status: Never smoker Tobacco Type: Cigarettes Age Started Using Tobacco: 19; Age Quit Using Tobacco: 41; packs per day: 1.5; Years Smoked: 22; Cigarettes Per Day: 30; Number of Years Since Quit: 43; Second Hand Exposure: No; Hx Alcohol Use: No Hx Substance Use: No Preferred Language: Albanian Communication Ability: Effective Hearing Ability: Normal Beliefs That Will Affect Care: None marital status: Current Living Situation: Spouse current occupational status: retired current occupation: Worked in a bank in [place] Feels Safe at Home: Yes Childhood Exposure to Second-Hand Smoke: No caffeine: Yes during the past year weight has: remained stable Dental Care, Regularly: Yes Physical Activity Frequency: Does not Exercise Seatbelt Use: always Sunscreen Use: No Review of Systems Review of Systems: Constitutional: Denies fever, chills, malaise Eyes: Denies vision change ENT: Denies ear pain, sore throat, sinus pain Cardiovascular: See HPI Respiratory: Denies shortness of breath, cough, sputum production, difficulty breathing Gastrointestinal: Denies abdominal pain, nausea, vomiting, constipation, diarrhea Genitourinary: Denies dysuria, urinary frequency Musculoskeletal: Denies acute focal weakness, muscle aches/pain, joint aches/pain. Endorses positional back pain in low mid back, no recent change. Integumentary:Denies acute rash, lesions, bruising Neurological: Endorses chronic numbness/tingling in toes due to back injury, chronic. Denies recent sensory change. Denies focal weakness or progressive weakness. Physical Exam Physical Exam: General: A&O to name and place. NAD. Cooperative. HEENT: Atraumatic, normocephalic. Pupils equal and responsive to light and accommodation. Visual acuity grossly intact, hearing grossly intact but mildly hard of hearing. Pulm: CTAB A&P. -wheezes, -rales, -rhonchi. Symmetrical chest rise. No increase work of breathing. No respiratory distress. Cardiac: RRR, -mrg. Radial pulses intact and symmetrical. Trace ankle edema, no JVD. Abdominal: Nontender, nondistended, soft. BS present. CRANIAL NERVES: II: Pupils equal and reactive, no relative afferent pupillary defect, no VF cuts III, IV, : EOM intact, no gaze preference or deviation, no nystagmus. V: normal sensation in V1, V2, and V3 segments bilaterally VII: no asymmetry, no nasolabial fold flattening VIII: normal hearing to speech IX, X: normal palatal elevation, no uvular deviation XI: 5/5 head turn and 5/5 shoulder shrug bilaterally XII: midline tongue protrusion MOTOR: RUE: 5/5 Elbow flexion/extension, wrist flexion/extension 5/5 freezer assistant strength, finger flexion/extension, interosseus LUE: 5/5 Elbow flexion/extension, wrist flexion/extension 5/5 freezer assistant strength, finger flexion/extension, interosseus RLE: 5/5 to hip flexion/extension, knee flexion/extension, ankle dorsiflexion/plantarflexion LLE: 5/5 to hip flexion/extension, knee flexion/extension, ankle dorsiflexion/plantarflexion SENSORY: Normal to soft touch in hands without deficit or asymmetry. Diminished to soft touch in feet bilaterally, intact to soft touch at the ankles without asymmetry. COORD: Normal finger to nose without dysmetria. No resting tremor appreciated at rest today, patient able to extend hands outward without resting tremor, no cogwheeling appreciated. Results & Data Results & Data ([facility]) Vital Signs (Past 12 Hours) Vital Signs Temp Pulse Pulse Resp BP BP Pulse Ox 04/03/21 09:32 70 12 95 04/03/21 09:00 63 17 220/124 H 95 04/03/21 08:03 60 15 236/118 H 95 04/03/21 07:41 60 18 94 04/03/21 07:28 59 L 21 231/113 H 95 04/03/21 07:27 36.5 C 61 18 231/113 H 94 04/03/21 07:03 36.5 C 61 18 231/113 H 94 Laboratory Results Abnormal lab results 04/03/21 04/03/21 Range/Units 07:03 07:03 RDW Std Deviation 47.6 H (36.4-46.3) fL RDW Coeff of Radha 15.1 H (11.5-14.5) % Hernando # (Auto) 0.70 H (0.11-0.59) K/uL BUN 22 H (7-18) mg/dl BUN/Creatinine Ratio 29.7 H (10-20) ALT 7 L (12-78) U/L Diagnostic Findings Chest X-Ray 04/03/21 07:41 XR chest 1V portable CLINICAL HISTORY: Chest Pain COMPARISON STUDY: Chest radiograph March 17, 2020. Chest CT May 14, 2020. FINDINGS: Lung volumes are normal. Lungs are clear. There is no pneumothorax or pleural effusion. Cardiac size is normal. Mediastinal contours are normal. There is no evidence for pulmonary edema. Patient is mildly rotated. Postoperative fin dings within the right shoulder are incidentally noted. IMPRESSION: No acute cardiopulmonary findings. ACT 112: Negative or not required by law. Electronically signed by: Leon Velarde M.D. 04/03/2021 8:25 AM Chest CTA 04/03/21 08:25 CT ANGIOGRAPHY OF THE CHEST DISSECTION PROTOCOL CLINICAL HISTORY: Chest pain. Evaluate for dissection. COMPARISON STUDY: Chest CT May 14, 2020. Chest radiograph performed earlier today. TECHNIQUE: Before and following the IV administration of 118 mL of Optiray, helical axial images of the chest were obtained. Maximal intensity projections and sagittal and coronal reformats were viewed on an independent 3D workstation. IV contrast was administered without complication. Automated exposure control was utilized for the study. A dose lowering technique was utilized adhering to the principles of ALARA. CT DOSE: 408.28 mGy.cm FINDINGS: The caliber of the thoracic aorta is normal. There is no intramural hematoma or thoracic aortic dissection. No pericardial effusion. No enlarged thoracic lymph nodes are present. No pulmonary emboli are identified. No pneumothorax or pleural effusion is noted. There is no consolidation to suggest pneumonia. Mild tree-in-bud nodules with mild bronchiectasis and mucus plugging within the right lung are similar to CT of May 14, 2020. Subpleural left lower lobe opacity is unchanged. This favors scarring or atelectasis. There is mild emphysema. Several old mild compression fractures within the thoracic spine are noted. A water attenuation right renal lesion is partially imaged on this exam. This measures at least 5.3 cm. This favors a renal cyst. IMPRESSION: 1. No thoracic aortic dissection. 2. No acute process within the chest. 3. Mild emphysema. 4. No change in mild tree-in-bud nodules, bronchiectasis and mucus plugging within the right lung since chest CT of May 14, 2020. ACT 112: Negative or not required by law. Electronically signed by: Leon Velarde M.D. 04/03/2021 9:45 AM Medications Administered Home Medications calcium carbonate 600 mg (1,500 mg)-vitamin D3 200 unit tablet (Calcium 600 + D(3)) 1 tab PO BID tab 04/04/19 [History Confirmed 04/03/21] multivitamin (Multiple Vitamins) 1 tab PO QAM 04/04/19 [History Confirmed 04/03/21] cholecalciferol (vitamin D3) 25 mcg (1,000 unit) capsule (Vitamin D3) 4,000 units PO QAM cap 05/24/19 [History Confirmed 04/03/21] carbidopa 25 mg-levodopa 100 mg tablet (Sinemet) 2 tab PO QID tab 02/24/20 [History Confirmed 04/03/21] aspirin 81 mg tablet,delayed release (Aspirin Low Dose) 81 mg PO QAM 02/29/20 [History Confirmed 04/03/21] carbidopa ER 25 mg-levodopa 100 mg tablet,extended release 2 tab PO HS 02/29/20 [History Confirmed 04/03/21] clotrimazole-betamethasone 1 %-0.05 % topical cream 1 applic TOPICAL BID #45 g 03/31/21 [Rx Confirmed 04/03/21] carvedilol 6.25 mg tablet (Coreg) 3.125 mg PO BID 04/03/21 [History Confirmed 04/03/21] nitroglycerin 0.4 mg sublingual tablet (Nitrostat) 0.4 mg SL Q5M PRN 04/03/21 [History Confirmed 04/03/21] simvastatin 20 mg tablet (Zocor) 20 mg PO HS 04/03/21 [History Confirmed 04/03/21] Active Medications Nitroglycerin (Nitroglycerin 2% Ointment 30gm Tube) 0.5 inch EXT Q6H HELEN Stop: 05/03/21 10:59 PG Care Time/CCT Total # of Minutes Spent Total Time Spent with Patient: Total time spent is greater than 50% in coordination of care (as documented) at patient's floor/unit and/or counseling patient: Coding Level of Care Code INT OBSERVATION CARE 70M LVL 3 Diagnoses Chest pain R07.9 Labile hypertension R09.89 Parkinson's disease G20 Vitamin D deficiency E55.9 Hypercholesterolemia E78.00 H/O non-ST elevation myocardial infarction (NSTEMI) I25.2 Bradycardia on ECG R00.1
[2021-04-03] MEDS ORDERED: NITROGLYCERIN 2% OINTMENT 30GM TUBE ONE (11:20)
[2021-04-03] MEDS ORDERED: ACETAMINOPHEN 325 MG TAB PO STA (12:08)
[2021-04-03] MEDS ORDERED: CARBIDOPA/LEVODOPA 25/100MG TAB PO STA (12:11)
[2021-04-03] MEDS ORDERED: amLODIPine BESYLATE 5 MG TAB PO ONE (12:11)
[2021-04-03] MEDS ORDERED: NITROGLYCERIN 2% OINTMENT 30GM TUBE EXT SCH ×2 (13:00→18:00)
[2021-04-03] MEDS ORDERED: NITROGLYCERIN SL 0.4 MG/TAB TAB SL PRN (13:13)
[2021-04-03] MEDS ORDERED: ACETAMINOPHEN 325 MG TAB PO PRN (13:13)
[2021-04-03] MEDS ORDERED: HYDROmorphone INJ 0.5 MG/0.5 ML SYR IV STA ×2 (14:06→20:13)
[2021-04-03] MEDS: LIDOCAINE 5% 1 PATCH TD SCH (14:32)
[2021-04-03] MEDS: CYCLOBENZAPRINE HCL 5 MG TAB PO SCH (14:33)
--- NOTE | 2021-04-03 15:59 | XCELERA ---
[id number]
[2021-04-03] MEDS: ENOXAPARIN INJ 40 MG/0.4 ML SYR SQ SCH (18:12)
[2021-04-03] MEDS: CARBIDOPA/LEVODOPA 25/100MG TAB PO SCH (18:12)
[2021-04-03] MEDS ORDERED: HYDROmorphone INJ 0.5 MG/0.5 ML SYR ONE (20:18)
[2021-04-03] MEDS: CARBIDOPA/LEVODOPA 25/100MG EXT REL TAB PO SCH (20:29)
[2021-04-03] MEDS: CALCIUM 600MG + VIT D 400 IU TAB PO SCH (20:29)
[2021-04-03] MEDS: carvediloL 3.125 MG TAB PO SCH (20:29)
[2021-04-03] MEDS: SIMVASTATIN 20 MG TAB PO SCH (20:30)
[2021-04-03] MEDS ORDERED: METOPROLOL TARTRATE 1 MG/ML VIAL IV STA (22:58)
[2021-04-04] MEDS ORDERED: METOPROLOL TARTRATE 1 MG/ML VIAL IV STA (04:34)
[2021-04-04] MEDS: CARBIDOPA/LEVODOPA 25/100MG TAB PO SCH ×4 (04:46→16:51)
[2021-04-04 07:13] LABS: Basophils # (auto) 0.03 K/uL (0-0.2); Basophils % (auto) 0.4 %; Eosinophils # (auto) 0.15 K/uL (0-0.5); Eosinophils % (auto) 1.9 %; Hematocrit (blood only) 40.6 % (37-47); Hemoglobin 13.6 g/dL (12.0-16.0); Immature Granulocytes # (auto) 0.01 K/uL (0.00-0.02); Immature Granulocytes % (auto) 0.1 %; Lymphocytes # (auto) 2.19 K/uL (1.2-3.4); Lymphocytes % (auto) 27.7 %; Mean Corpuscular Hemoglobin 29.2 pg (25-34); Mean Corpuscular Hgb Conc 33.5 g/dL (32-36); Mean Corpuscular Volume 87.1 fL (80-100); Mean Platelet Volume 9.4 fL (7.4-10.4); Monocytes # (auto) 0.82 K/uL (0.11-0.59); Monocytes % (auto) 10.4 %; Neutrophils # (auto) 4.71 K/uL (1.4-6.5); Neutrophils % (auto) 59.5 %; Platelet Count 245 K/uL (130-400); RDW Coefficient of Variation 15.1 % (11.5-14.5); RDW Standard Deviation 48.5 fL (36.4-46.3); Red Blood Count 4.66 M/uL (4.2-5.4); White Blood Count 7.91 K/uL (4.8-10.8)
[2021-04-04 07:41] LABS: BUN Creatinine Ratio 28.9 (10-20); Calcium 9.4 mg/dl (8.5-10.1); Creatinine Clr Calc Pharmacy 45.4 ml/min; Est GFR (African American) 73.5 ml/min; Est GFR (Non-African American) 63.4 ml/min; Potassium 3.9 mmol/L (3.5-5.1)
[2021-04-04] MEDS: CYCLOBENZAPRINE HCL 5 MG TAB PO SCH (08:00)
[2021-04-04] MEDS: CHOLECALCIFEROL 1,000 UNITS 25 MCG TAB PO SCH (08:00)
[2021-04-04] MEDS: CALCIUM 600MG + VIT D 400 IU TAB PO SCH ×2 (08:00→20:15)
[2021-04-04] MEDS: LIDOCAINE 5% 1 PATCH TD SCH (08:00)
[2021-04-04] MEDS: MULTIVITAMIN TAB PO SCH (08:00)
[2021-04-04] MEDS: ASPIRIN 81 MG ECTAB PO SCH (08:00)
[2021-04-04] MEDS: carvediloL 3.125 MG TAB PO SCH ×2 (08:00→20:15)
--- NOTE | 2021-04-04 11:29 | Hospitalist Progress Note ---
Date of Service April 04, 2021 Assessment & Plan (1) Chest pain: Plan: Christiane is a 86-year-old female with a past medical history of chest pain with a catheterization in 2007 without acute findings and not requiring PCI, Parkinson's with dementia, labile hypertension, hyperlipidemia,Thyroid nodules, and osteopenia who presented to [facility] with 15 minutes of chest pain radiating through to her back and who is being admitted for observation and management of labile hypertension. Chest pain Lasted 15 minutes, resolved by arrival to emergency department without administration of nitro or aspirin Patient given aspirin full dose on arrival to ER Serial troponins negative Repeat TTE - no regional wall motion abnormalities EKG reviewed, sinus bradycardia without T wave inversions or ST elevation/depression. Patient denies history of tobacco use. Patient reports high stress at home, is in the process of moving and is the 1 year anniversary of her passing. Chest x-ray: No acute findings CTA:No thoracic aortic dissection. No acute process within the chest. Mild emphysema. No change in mild tree-in-bud nodules, bronchiectasis and mucus plugging within the right lung since chest CT of May 14, 2020. Most likely secondary to stress and hypertension but will get dobutamine stress echo tomorrow to see if increasing her anti-anginal medications is warranted (2) Labile hypertension: Plan: Patient reports history of labile hypertension with rapid swings between 200s to sub-100s With history of Parkinson's disease Patient reports she is "very sensitive "to blood pressure medications, and cannot take any medicine ending in -pril. Will avoid JONNY/ARB at this time Continue her usual carvedilol Avoided labetalol/esmolol admission 2/2 HR of 60, history of concern for ischemia, sinus bradycardia, and patient report of rapid BP drop (3) Parkinson's disease: Plan: Well-controlled, continue home carbidopalevodopa 25/102 tablets5 AM, 9 AM, 1 PM, 5 PM, 9 PM and Sinemet CR 25/100 10 PM Amantadine not tolerated in the past Fall precautions -PT/OT evals (4) Vitamin D deficiency: Plan: Continue vitamin D supplementation (5) Bradycardia on ECG: Plan: EKG as noted in chest pain Avoided additional chronotropic agents for management of hypertension on admission Continue to follow, no lightheadedness/dizziness (6) Hypercholesterolemia: Plan: Continue home simvastatin (7) H/O non-ST elevation myocardial infarction (NSTEMI): Plan: Continue Coreg, daily aspirin, simvastatin Patient not on an JONNY due to intolerance and hypotension Plan: DVT prophylaxis: Lovenox Diet: Heart healthy Disposition: Medical telemetry, observation CODE STATUS: Full code, discussed with patient and daughter at bedside. Patient would like her son/daughter to be decision-makers in the event of an emergency. Admission and Anticipated Discharge Date Admission Date: April 03, 2021 Subjective No further chest pain overnight. Serial troponins negative. Multiple episodes of chest pain which occur at rest. No change with food. No worse on palpation. Review of Systems Review of Systems: All systems reviewed & are unremarkable except as noted in HPI & below Physical Exam Constitutional: WD/WN, vitals as above no acute distress Eyes: + anicteric sclerae; normal pupil size Respiratory: normal respiratory effort, lungs clear to auscultation Cardiovascular: RRR, no murmur, no edema Chest (Breasts): Additional Comments: No chest pain on palpation Gastrointestinal (Abdomen): Percussion/Palpation: abdomen soft; abdomen nontender Skin: no rashes, warm and dry Neurologic: moves all extremities and awake; not confused Motor/Sensory: + tremor (LUE resting) Results & Data Results & Data ([facility]) Vital Signs (Past 12 Hours) Vital Signs Temp Pulse Pulse Resp BP BP Pulse Ox 04/04/21 08:03 36.7 C 59 L 18 145/74 H 93 04/04/21 07:22 60 04/04/21 04:44 63 186/81 H 04/04/21 04:28 65 04/04/21 04:20 65 181/88 H 04/04/21 04:06 194/94 H 04/04/21 03:42 36.8 C 67 20 181/95 H 94 PG Care Time/CCT Total # of Minutes Spent Total Time Spent with Patient: Total time spent is greater than 50% in coordination of care (as documented) at patient's floor/unit and/or counseling patient: Coding Level of Care Code 35090 Subseq Obs Care Lvl 2 Diagnoses Chest pain R07.2 Chest pain type: precordial pain Labile hypertension R09.89 Parkinson's disease G20 Vitamin D deficiency E55.9 Bradycardia on ECG R00.1 Hypercholesterolemia E78.00 H/O non-ST elevation myocardial infarction (NSTEMI) I25.2 (1) Chest pain Chest pain type: precordial pain Qualified Code(s): R07.2 - Precordial pain
[2021-04-04] MEDS: ENOXAPARIN INJ 40 MG/0.4 ML SYR SQ SCH (16:51)
[2021-04-04] MEDS: SIMVASTATIN 20 MG TAB PO SCH (20:16)
[2021-04-04] MEDS: CARBIDOPA/LEVODOPA 25/100MG EXT REL TAB PO SCH (21:33)
[2021-04-04] MEDS ORDERED: MELATONIN 3 MG TAB PO PRN (23:28)
[2021-04-05] MEDS: CARBIDOPA/LEVODOPA 25/100MG TAB PO SCH ×3 (04:56→12:43)
[2021-04-05] MEDS ORDERED: METOPROLOL TARTRATE 1 MG/ML VIAL IV STA (05:41)
[2021-04-05] MEDS: CYCLOBENZAPRINE HCL 5 MG TAB PO SCH (08:17)
[2021-04-05] MEDS: CALCIUM 600MG + VIT D 400 IU TAB PO SCH (08:17)
[2021-04-05] MEDS: CHOLECALCIFEROL 1,000 UNITS 25 MCG TAB PO SCH (08:17)
[2021-04-05] MEDS: MULTIVITAMIN TAB PO SCH (08:17)
[2021-04-05] MEDS: ASPIRIN 81 MG ECTAB PO SCH (08:17)
[2021-04-05] MEDS ORDERED: ATROPINE SULFATE 0.1 MG/ML 10ML SYR IV ONE (08:40)
[2021-04-05] MEDS ORDERED: METOPROLOL TARTRATE 1 MG/ML VIAL IV ONE (08:40)
[2021-04-05] MEDS ORDERED: DOBUTamine HCL 12.5 MG/ML 20 ML VIAL IV ONE (08:40)
[2021-04-05] MEDS: LIDOCAINE 5% 1 PATCH TD SCH (10:15)
[2021-04-05] MEDS: carvediloL 3.125 MG TAB PO SCH (11:11)
--- NOTE | 2021-04-05 16:08 | Electrocardiogram Report ---
Test Reason : Blood Pressure : / mmHG Vent. Rate : 059 BPM Atrial Rate : 059 BPM P-R Int : 184 ms QRS Dur : 090 ms QT Int : 434 ms P-R-T Axes : 069 -24 006 degrees QTc Int : 429 ms Sinus bradycardia Minimal voltage criteria for LVH, may be normal variant Borderline ECG When compared with ECG of 14-MAY-2020 16:23, Inverted T waves have replaced nonspecific T wave abnormality in Inferior leads Confirmed by Merlin Ronquillo ([id number]) on 04/05/2021 4:08:35 PM Referred By: REFERRED SELF Confirmed By:Merlin Ronquillo
--- NOTE | 2021-04-05 17:51 | XCELERA ---
[id number]
--- NOTE | 2021-04-05 20:41 | Discharge Summary ---
Date of Service April 05, 2021 Admission HPI Per Admitting Provider Janet presents to the ER for chest pain. She reports her symptoms started a little after 6:00am. Was getting ready to go to [place] [employer], sitting. Had soem similar episodes in March which only lasted 15-20 minutes. No chest pain with exertion, does not go up stairs but goes on work. Pain went through to her back. 5-6/10 in intensity. 0/10 by time of arrival in the ER. No shortness of breath, no headache, no vision change. No other symptoms. Took carvedilol in ED, missed home dose this morning. No other HTN medications. Has had 'bottomed out low pressures' intermittent in the past. Did not tolerate lisinopril or 'anything with a -pril'. She reports that she has intermittently high blood pressure at home, but does not check it regularly. She notes that her blood pressure has rapidly swung from low 200s to less than 100 systolic very quickly with blood pressure treatment in the past. She reports she has been Under stress at home. Moving to [place] to live with son adn . Is under a lot of stress with all the changes. Today is also the anniverary of her passing. She is seen with her daughter at bedside, who reports she is managing but today has an especially stressful day for her. Denies other symptoms. Has not had any sick contacts. Has been vaccinated with 2 doses of Covid vaccination, not sure which brand, last dose in January. Denies shortness of breath, difficulty breathing, cough, sputum production, fever, chills, sweats, nausea, vomiting, diarrhea. Endorses some tremor well controlled with her Parkinson's medicines. MedHx: Parkinsons, takes carbidopa-levodopa which works 'well very' for her. Also takes a simvastatin. 2008 had a 'mini-heart attack' with a cath, but no blockage was found. No stents, no heart surgery. PCP: Dr. Morales. Does not follow with a grill attendant since 2007. Medications: Reviewed Surgical History: Reviewed Allergies: Reviewed Social History: Lives at home alone previously, in the process of moving in with her son in [place]. No stairs in the home. Denies tobacco, alcohol, and recreational drug use. Code Status: Full code, confirmed with patient and daughter at bedside. Patient would want her son and her daughter to be her surrogate decision makers if she were unable to make decisions for herself. Principal Diagnosis chest pain and labile hypotension Discharge Exam Constitutional: WD/WN, vitals as above no acute distress Eyes: + anicteric sclerae; normal pupil size Respiratory: normal respiratory effort, lungs clear to auscultation Cardiovascular: RRR, no murmur, no edema Chest (Breasts): Additional Comments: No chest pain on palpation Gastrointestinal (Abdomen): Percussion/Palpation: abdomen soft; abdomen nontender Skin: no rashes, warm and dry Neurologic: moves all extremities and awake; not confused Motor/Sensory: + tremor (LUE resting) Discharge Data Allergies Allergy/AdvReac Type Severity Reaction Status Date / Time morphine Allergy Unknown bottoms out Verified 04/03/21 08:26 amantadine AdvReac Severe could not Verified 04/03/21 08:26 wake up lisinopril AdvReac Severe blood Unverified 04/03/21 08:26 pressure bottoms out alendronate sodium AdvReac can't Verified 04/03/21 08:26 [From Fosamax] remember hydralazine AdvReac can't Verified 04/03/21 08:26 remember Consultations 04/03/21 10:39 ED Decision to Admit Stat Ordered Studies 04/03/21 08:25 CT angio chest dissec wo/w con Stat Hospital Course (1) Chest pain: Christiane is a 86-year-old female with a past medical history of chest pain with a catheterization in 2007 without acute findings and not requiring PCI, Parkinson's with dementia, labile hypertension, hyperlipidemia,Thyroid nodules, and osteopenia who presented to [facility] with 15 minutes of chest pain radiating through to her back and who is being admitted for observation and management of labile hypertension. Chest pain Lasted 15 minutes, resolved by arrival to emergency department without administration of nitro or aspirin Patient given aspirin full dose on arrival to ER Serial troponins negative Repeat TTE - no regional wall motion abnormalities EKG reviewed, sinus bradycardia without T wave inversions or ST elevation/depression. Patient denies history of tobacco use. Patient reports high stress at home, is in the process of moving and is the 1 year anniversary of her passing. Chest x-ray: No acute findings CTA:No thoracic aortic dissection. No acute process within the chest. Mild emphysema. No change in mild tree-in-bud nodules, bronchiectasis and mucus plugging within the right lung since chest CT of May 14, 2020. -Dobutamine stress echo: negative Most likely secondary to musculoskeletal. Patient is agreeable to discharg (2) Labile hypertension: Patient reports history of labile hypertension with rapid swings between 200s to sub-100s With history of Parkinson's disease Patient reports she is "very sensitive "to blood pressure medications, and cannot take any medicine ending in -pril. Will avoid JONNY/ARB at this time Continue her usual carvedilol Avoided labetalol/esmolol admission 2/2 HR of 60, history of concern for ischemia, sinus bradycardia, and patient report of rapid BP drop -Will recommend adding low dose amlodipine HS, this will likely prevent elevations of her BP, without signficantly provoking orthostasis. will defer further management to PCP. (3) Parkinson's disease: Well-controlled, continue home carbidopalevodopa 25/102 tablets5 AM, 9 AM, 1 PM, 5 PM, 9 PM and Sinemet CR 25/100 10 PM Amantadine not tolerated in the past Fall precautions (4) Vitamin D deficiency: Continue vitamin D supplementation (5) Bradycardia on ECG: EKG as noted in chest pain Avoided additional chronotropic agents for management of hypertension on admission Continue to follow, no lightheadedness/dizziness (6) Hypercholesterolemia: Continue home simvastatin (7) H/O non-ST elevation myocardial infarction (NSTEMI): Continue Coreg, daily aspirin, simvastatin Patient not on an JONNY due to intolerance and hypotension DVT prophylaxis: Lovenox Diet: Heart healthy Disposition: Medical telemetry, observation CODE STATUS: Full code, discussed with patient and daughter at bedside. Patient would like her son/daughter to be decision-makers in the event of an emergency. Total Time Total Time Spent Total Time Spent (In Minutes): 32 Discharge Plan Discharge Items Patient Disposition: Home - Self-Care Reason For Visit: CONTINUATION OF CARE Discharge Diagnosis: labile hypertension Activity: Resume your previous activity Non-emergency contact: Primary Care Provider Call non-emergency contact if: you have any medication questions Follow-up/Referrals: Oswald Morales MD [Primary Care Provider] - 04/13/21 11:00 am Diet: Heart Healthy Addtl Attending Provider Instructions: You were evaluated for chest pain. Your stress test was negative. Will recommend followup with your PCP. Will restart low dose amlodipine to help with your elevated blood pressure. Will not recommend high doses of BP meds given concern over her orthostasis. Patient will get first dose this evening. Pending Studies at Discharge: No Stand-Alone Forms: My [facility] [employer], Smoking Cessation Medications and DC Order Prescriptions: New cyclobenzaprine 5 mg Tablet 5 mg PO QAM PRN (Reason: muscle spasm) Qty: 7 RF: 0 atorvastatin 10 mg tablet 10 mg PO HS Qty: 30 RF: 0 lidocaine [Lidocaine Pain Relief] 4 % adhesive patch,medicated 1 patch topical DAILY PRN (Reason: pain) Qty: 10 RF: 0 Continued cholecalciferol (vitamin D3) [Vitamin D3] 1,000 unit capsule 4,000 units PO QAM RF: 0 clotrimazole-betamethasone 1-0.05 % cream 1 applic topical BID Qty: 45 RF: 1 carbidopa-levodopa [Sinemet] 25-100 mg tablet 2 tab PO QID RF: 0 calcium carbonate-vitamin D3 [Calcium 600 + D(3)] 600 mg(1,500mg) -200 unit tablet 1 tab PO BID RF: 0 multivitamin [Multiple Vitamins] tablet 1 tab PO QAM RF: 0 carbidopa-levodopa 25-100 mg tablet extended release 2 tab PO HS RF: 0 aspirin [Aspirin Low Dose] 81 mg Tablet,Delayed Release (Dr/Ec) 81 mg PO QAM RF: 0 Hold Instructions: s/p trauma carvedilol [Coreg] 6.25 mg tablet 3.125 mg PO BID RF: 0 nitroglycerin [Nitrostat] 0.4 mg tablet, sublingual 0.4 mg SL Q5M PRN (Reason: Chest Pain) RF: 0 Discontinued simvastatin [Zocor] 20 mg tablet 20 mg PO HS RF: 0 Discharge Orders: Discharge Order (Routine); Ordered 04/05/21 Ordered By: Ruben Peoples Admission Data Admit Date/Time: 04/03/21 11:19 Attending Provider: Ruben Peoples Admit Provider: Louie Escalante Primary Care Provider: Oswald Morales Other Providers: Louie Escalante Other Interventions: Discharge Summary Assessment (RN) Last Done: 04/05/21 13:41 Coding Level of Care Code 05341 OBS Care - Discharge Diagnoses Chest pain R07.2 Chest pain type: precordial pain Labile hypertension R09.89 Parkinson's disease G20 Vitamin D deficiency E55.9 Bradycardia on ECG R00.1 Hypercholesterolemia E78.00 H/O non-ST elevation myocardial infarction (NSTEMI) I25.2
== END 2021-04-05 14:51 | disposition home or self-care (01) ==
LOC: ED 07:14 → 2N 07:14 → SUATTDRO 11:19 → 2N 12:48

== ENCOUNTER 2025-02-22 17:02 | Observation (INO) ==
[2025-02-22 17:29] LABS: Hematocrit (blood only) 42.3 % (37.0-47.0); Hemoglobin 13.8 g/dl (12.0-16.0); Immature Granulocytes # (auto) 0.04 K/uL (0.01-0.20); Immature Granulocytes % (auto) 0.5 %; Mean Corpuscular Hemoglobin 28.3 pg (25.0-34.0); Mean Corpuscular Volume 86.9 fL (80.0-100.0); Platelet Count 248 K/uL (130-400); RDW Standard Deviation 48.7 fL (36.4-46.3); Red Blood Count 4.87 M/uL (4.20-5.40); White Blood Count 8.13 K/ul (4.8-10.8)
[2025-02-22 17:50] LABS: Anion Gap 7 (3-11); Blood Urea Nitrogen 18 mg/dl (6-23); Calcium 9.4 mg/dl (8.6-10.3); Carbon Dioxide 29 mmol/L (21-32); Chloride 102 mmol/L (98-107); Creatinine Clr Calc Pharmacy 47.7 ml/min; Glucose 100 mg/dl (70-99(Fasting)); Potassium 3.9 mmol/L (3.5-5.1); Sodium 138 mmol/L (136-145)
[2025-02-22 17:55] LABS: Albumin Globulin Ratio 1.1 (0.9-2); Alkaline Phosphatase 78 U/L (34-104); Bilirubin,Total 0.4 mg/dl (0.2-1.0); Globulin 3.3 gm/dl (2.5-4.0); Lipase 47 U/L (11-82); Total Protein 7.0 gm/dl (6.0-8.3)
--- NOTE | 2025-02-22 18:08 | Emergency Department Note ---
Impression & Plan Chest pain, Atrial flutter, paroxysmal ED Provider Note NAME: MIKO BUSH AGE: 89 SEX: F : 1935 ARRIVES VIA: Ambulance INFORMANT: Patient, ED PROVIDER(S): Nikolas Orellana MD CHIEF COMPLAINT: Chest pain HPI: This is a 89-year-old female presenting for chest pain. Patient states that she was watching TV when she had sudden onset chest pain. This was left- sided chest, frontal. Did not go into her back, neck or arms. She was given nitroglycerin by EMS which resolved her chest pain. She notes no current symptoms at this time. She reports having no previous symptoms of this. ROS: See above HPI for pertinent positives & negatives. A total of 10 systems reviewed and were otherwise negative. PAST MEDICAL HISTORY: See Below PAST SURGICAL HISTORY: See Below FAMILY HISTORY: See Below SOCIAL HISTORY: See Below HOME MEDICATIONS: See Below ALLERGIES: See Below VITALS: See Below PHYSICAL EXAMINATION: General: resting comfortably in no acute distress Head: Normocephalic and atraumatic Eyes: Normal inspection, extraocular muscles intact Ear, nose, throat: Normal external exam Neck: Normal range of motion Respiratory: lungs clear to auscultation bilaterally Cardiovascular: Regular rate/rhythm, no murmur GI: soft, nontender, no guarding or rebound Extremities: nontender, moves all extremities Neuro: The patient awake and alert, appropriately conversive, no focal deficits, symmetric faces Skin: Warm, dry, and intact MEDICAL DECISION MAKING: This an 89-year-old female presenting for chest pain. She had this pain prior to arrival. EKGs as below. Will get basic blood work to help assess. Patient not hypoxic, tachycardic suggest PE. No radiation of pain or current pain to suggest dissection. - ECG independently interpreted by me with normal sinus rhythm with PVC,, rate of 82, normal [place], normal QRS, normal QTc, no ST segment elevations consistent with STEMI criteria - Bloodwork is reviewed showing no significant leukocytosis, anemia, electrolyte or creatinine abnormality. Negative troponin - Delta troponin also negative - Chest Xray independently interpreted by me showing no pneumothorax, focal opacity, or pleural effusions. - Interesting patient went into an a flutter here with a rate between 100 and 125. - ECG independently interpreted by me with atrial flutter with variable block, rate of 93, normal QRS, normal QTc, no ST segment elevations consistent with STEMI criteria - Had ordered diltiazem for help controlling rate however she converted out being sinus rhythm within 45 minutes. - Discussed care with Dr. Santoyo, petrophysicist, to assess for whether patient needs anticoagulation for his atrial flutter and chest. She recommends observation admission and echocardiogram in the morning due to patient's risk and age. - Discussed with Dr. Castaneda for admission Differential diagnosis: ACS, PE, dissection, tachydysrhythmia, pneumonia Diagnostics interpreted by me: ECG: See above Cardiac Monitoring: An order was placed for continuous cardiac monitoring. The monitor shows a rate of 64 with sinus rhythm. Past Med/Surg History Problem List (Updated 02/23/25 @ 00:33 by Nikolas Orellana MD) Atrial flutter, paroxysmal (Acute) Chest pain (Acute) Atrial flutter HTN (hypertension) (Acute) Lab test negative for COVID-19 virus (Acute) T wave inversion in EKG (Acute) Bradycardia on ECG Chest pain (Acute) Labile blood pressure Syncope Rib fracture Renal cyst, right Cyst of kidney, acquired (Acute) Diverticulosis (Acute) Empty sella syndrome (Acute) Fatty liver disease, nonalcoholic (Acute) Hyperactivity of bladder (Acute) Hypercholesterolemia (Acute) Hyponatremia (Acute) Insomnia (Acute) Labile hypertension (Acute) Multiple thyroid nodules (Acute) Osteopenia (Acute) Parkinson's disease (Acute) Vitamin D deficiency (Acute) Hypertension (Chronic) H/O non-ST elevation myocardial infarction (NSTEMI) Medical History (Updated 02/23/25 @ 00:33 by Nikolas Orellana MD) Vertigo Hypertensive urgency Surgical History History of varicose vein ligation S/P rotator cuff repair S/P hysterectomy S/P cataract surgery S/P lumpectomy of breast S/P appendectomy Family History Mother Myocardial infarction Diabetes Sister Breast cancer Father Stroke Denies family history of Ovarian cancer Prostate cancer Congenital kidney disease Colorectal cancer Social History Smoking Status: Former smoker Tobacco Type: Cigarettes Age Started Using Tobacco: 19; Age Quit Using Tobacco: 41; packs per day: 1.5; Cigarettes Per Day: 30; Second Hand Exposure: No; Do You Dip or Chew Tobacco: No; Hx Alcohol Use: No Hx Substance Use: No Preferred Language: Uzbek Communication Ability: Effective Hearing Ability: Normal Retirement Actuary Required: No Beliefs That Will Affect Care: None marital status: Current Living Situation: Family current occupational status: retired current occupation: Worked in a [employer] in [place] Feels Safe at Home: Yes Safety Concerns Comment: Currently packing up house, boxes are everywhere, worried about falling Childhood Exposure to Second-Hand Smoke: No Diet: regular caffeine: Yes during the past year weight has: remained stable Dental Care, Regularly: Yes Physical Activity Frequency: Does not Exercise Seatbelt Use: always Sunscreen Use: No Assistive Devices: Glasses and Walker Allergies Allergies Allergy/AdvReac Type Severity Reaction Status Date / Time adhesive tape Allergy Unknown ON [facility] Verified 02/22/25 18:22 MED LIST droxidopa Allergy Unknown ON [facility] Verified 02/22/25 18:22 MED LIST enalapril Allergy Unknown ON [facility] Verified 02/22/25 18:22 MED LIST amantadine AdvReac Severe could not Verified 02/22/25 18:22 wake up lisinopril AdvReac Severe blood Verified 02/22/25 18:22 pressure bottoms out morphine AdvReac Severe B/P Verified 02/22/25 18:22 "bottoms out" alendronate sodium AdvReac Unknown can't Verified 02/22/25 18:22 [From Fosamax] remember hydralazine AdvReac Unknown can't Verified 02/22/25 18:22 remember Home Meds Home Medications Medication Instructions Recorded Confirmed carbidopa 25 mg-levodopa 100 mg 2.5 tab PO TID 02/24/20 02/22/25 tablet (Sinemet) carbidopa ER 25 mg-levodopa 100 mg 2 tab PO .HS@2200 02/29/20 02/22/25 tablet,extended release nitroglycerin 0.4 mg sublingual 0.4 mg sublingual .Q5MIN PRN Chest 04/03/21 02/22/25 tablet (Nitrostat) Pain acetaminophen 325 mg tablet 650 mg PO Q4H PRN Pain 02/22/25 02/22/25 (Tylenol) amlodipine 5 mg tablet 5 mg PO BIDM 02/22/25 02/22/25 apixaban 2.5 mg tablet (Eliquis) 2.5 mg PO Q12H 02/22/25 02/22/25 calcium 500 mg (as 1 tab PO QAM 02/22/25 02/22/25 carbonate)-vitamin D3 5 mcg (200 unit) tablet (Oyster Shell Calcium-Vitamin D3) clonidine HCl 0.1 mg tablet 0.05 mg PO QAM 02/22/25 02/22/25 clonidine HCl 0.1 mg tablet 0.1 mg PO HS 02/22/25 02/22/25 docusate sodium 100 mg capsule 100 mg PO QPM 02/22/25 02/22/25 furosemide 20 mg tablet (Lasix) 20 mg PO Q24H PRN Edema 02/22/25 02/22/25 gabapentin 300 mg capsule 300 mg PO QPM 02/22/25 02/22/25 nystatin 100,000 unit/gram topical 1 applic topical DIRECTED PRN 02/22/25 02/22/25 powder ABD FOLD/SKIN EXCORIATION omega-3 fatty acids 1,000 mg 1,000 mg PO QAM 02/22/25 02/22/25 capsule Results & Data (ED) Vital Signs Vital Signs - 24 hr 02/22/25 17:03 02/22/25 17:17 02/22/25 17:17 Temperature 36.8 C Temperature Source Oral Pulse Rate 82 Pulse Rate [Apical] 78 Pulse Rate from SpO2 Sensor Respiratory Rate 22 20 Respiratory Effort / Characteristics Non-Labored Spontaneous Non-Labored Spontaneous Respiratory Depth Normal Normal Respiratory Pattern Regular Blood Pressure 193/115 H Blood Pressure [Right Arm] 185/104 H Blood Pressure Mean 141 Blood Pressure Mean [Right Arm] 131 Blood Pressure Position [Right Arm] Semi-fowlers Pulse Oximetry 95 95 94 Oxygen Delivery Method Room Air Room Air Room Air Sepsis Recent Fever Within 48 Hours No Sepsis New/Unexplained Change in Mental Status No Sepsis Action Taken by Nursing No Action Required 02/22/25 17:17 02/22/25 17:42 02/22/25 17:54 Temperature Temperature Source Pulse Rate 80 76 79 Pulse Rate [Apical] Pulse Rate from SpO2 Sensor 74 Respiratory Rate 15 24 Respiratory Effort / Characteristics Respiratory Depth Respiratory Pattern Blood Pressure Blood Pressure [Right Arm] Blood Pressure Mean Blood Pressure Mean [Right Arm] Blood Pressure Position [Right Arm] Pulse Oximetry 95 93 Oxygen Delivery Method Room Air Sepsis Recent Fever Within 48 Hours Sepsis New/Unexplained Change in Mental Status Sepsis Action Taken by Nursing 02/22/25 17:57 02/22/25 18:00 02/22/25 18:30 Temperature Temperature Source Pulse Rate 76 Pulse Rate [Apical] Pulse Rate from SpO2 Sensor 76 Respiratory Rate 15 Respiratory Effort / Characteristics Respiratory Depth Respiratory Pattern Blood Pressure 182/92 H 166/108 H Blood Pressure [Right Arm] Blood Pressure Mean 102 136 Blood Pressure Mean [Right Arm] Blood Pressure Position [Right Arm] Pulse Oximetry 94 Oxygen Delivery Method Sepsis Recent Fever Within 48 Hours Sepsis New/Unexplained Change in Mental Status Sepsis Action Taken by Nursing 02/22/25 18:48 02/22/25 19:30 02/22/25 20:30 Temperature Temperature Source Pulse Rate 107 H 123 H Pulse Rate [Apical] Pulse Rate from SpO2 Sensor 113 H 119 H Respiratory Rate 16 16 Respiratory Effort / Characteristics Respiratory Depth Respiratory Pattern Blood Pressure 157/106 H 94/66 L Blood Pressure [Right Arm] Blood Pressure Mean 123 73 Blood Pressure Mean [Right Arm] Blood Pressure Position [Right Arm] Pulse Oximetry 93 93 Oxygen Delivery Method Sepsis Recent Fever Within 48 Hours Sepsis New/Unexplained Change in Mental Status Sepsis Action Taken by Nursing 02/22/25 20:36 02/22/25 21:30 02/22/25 22:03 Temperature Temperature Source Pulse Rate 67 Pulse Rate [Apical] 64 Pulse Rate from SpO2 Sensor Respiratory Rate 22 22 Respiratory Effort / Characteristics Non-Labored Respiratory Depth Normal Respiratory Pattern Regular Blood Pressure 97/79 L 111/70 Blood Pressure [Right Arm] 119/72 Blood Pressure Mean 83 82 Blood Pressure Mean [Right Arm] 87 Blood Pressure Position [Right Arm] Pulse Oximetry 95 93 Oxygen Delivery Method Room Air Sepsis Recent Fever Within 48 Hours Sepsis New/Unexplained Change in Mental Status Sepsis Action Taken by Nursing 02/22/25 22:30 02/22/25 23:00 02/22/25 23:00 Temperature Temperature Source Pulse Rate 62 64 64 Pulse Rate [Apical] Pulse Rate from SpO2 Sensor Respiratory Rate 20 16 24 Respiratory Effort / Characteristics Respiratory Depth Respiratory Pattern Blood Pressure 113/73 108/61 108/61 Blood Pressure [Right Arm] Blood Pressure Mean 84 76 75 Blood Pressure Mean [Right Arm] Blood Pressure Position [Right Arm] Pulse Oximetry 95 92 Oxygen Delivery Method Sepsis Recent Fever Within 48 Hours Sepsis New/Unexplained Change in Mental Status Sepsis Action Taken by Nursing 02/22/25 23:30 02/23/25 00:00 Temperature Temperature Source Pulse Rate 64 64 Pulse Rate [Apical] Pulse Rate from SpO2 Sensor Respiratory Rate 16 20 Respiratory Effort / Characteristics Respiratory Depth Respiratory Pattern Blood Pressure 123/72 119/77 Blood Pressure [Right Arm] Blood Pressure Mean 98 88 Blood Pressure Mean [Right Arm] Blood Pressure Position [Right Arm] Pulse Oximetry 95 Oxygen Delivery Method Sepsis Recent Fever Within 48 Hours Sepsis New/Unexplained Change in Mental Status Sepsis Action Taken by Nursing Laboratory Data 02/22/25 17:14 02/22/25 17:14 Lab Results 02/22/25 02/22/25 Range/Units 17:14 19:10 WBC 8.13 (4.8-10.8) K/ul RBC 4.87 (4.20-5.40) M/uL Hgb 13.8 (12.0-16.0) g/dl Hct 42.3 (37.0-47.0) % MCV 86.9 (80.0-100.0) fL MCH 28.3 (25.0-34.0) pg MCHC 32.6 (32.0-36.0) g/dL RDW Std Deviation 48.7 H (36.4-46.3) fL RDW Coeff of Radha 15.3 H (11.5-14.5) % Plt Count 248 (130-400) K/uL MPV 9.3 L (9.4-12.4) fL Immature Gran % (Auto) 0.5 % Neut % (Auto) 61.5 % Lymph % (Auto) 26.1 % [place] % (Auto) 9.6 % Eos % (Auto) 1.8 % Baso % (Auto) 0.5 % Neut # (Auto) 5.00 (1.40-6.50) K/uL Lymph # (Auto) 2.12 (1.20-3.40) K/uL [place] # (Auto) 0.78 H (0.11-0.59) K/uL Eos # (Auto) 0.15 (0.00-0.50) K/uL Baso # (Auto) 0.04 (0.00-0.20) K/uL Immature Gran # (Auto) 0.04 (0.01-0.20) K/uL Sodium 138 (136-145) mmol/L Potassium 3.9 (3.5-5.1) mmol/L Chloride 102 (98-107) mmol/L Carbon Dioxide 29 (21-32) mmol/L Anion Gap 7 (3-11) BUN 18 (6-23) mg/dl Creatinine 0.78 (0.6-1.2) mg/dl Est Cr Clr Drug Dosing 47.7 ml/min eGFR 73.01 BUN/Creatinine Ratio 23.1 H (10-20) Glucose 100 H (70-99(Fasting)) mg/dl Calcium 9.4 (8.6-10.3) mg/dl Magnesium 2.2 (1.7-2.4) mg/dl Total Bilirubin 0.4 (0.2-1.0) mg/dl AST 13 (13-39) U/L ALT < 3 L (7-52) U/L Alkaline Phosphatase 78 (34-104) U/L Troponin I High Sens 8.7 9.9 (0-14) pg/ml Total Protein 7.0 (6.0-8.3) gm/dl Albumin 3.7 (3.4-5.0) gm/dl Globulin 3.3 (2.5-4.0) gm/dl Albumin/Globulin Ratio 1.1 (0.9-2) Lipase 47 (11-82) U/L Administered Medications Gabapentin (Gabapentin 300 Mg Cap) 300 mg PO QAM [facility] Stop: 03/24/25 19:29 Last Admin: 02/22/25 19:36 Dose: 300 mg Documented By: ASHA Discontinued Medications Carbidopa/Levodopa (Carbidopa/Levodopa 25/100mg Tab) 2.5 tab PO NOW STA Stop: 02/22/25 19:21 Last Admin: 02/22/25 19:35 Dose: 2.5 tab Documented By: ASHA Diltiazem HCl (Diltiazem Hcl 5 Mg/Ml 5 Ml Vial) Confirm Administered Dose 25 mg IV .STK-MED ONE Stop: 02/22/25 20:57 Last Admin: 02/22/25 21:05 Dose: Not Given Documented By: KML Diltiazem HCl (Diltiazem Hcl 5 Mg/Ml 5 Ml Vial) 10 mg IV NOW STA Stop: 02/22/25 20:59 Last Admin: 02/22/25 21:26 Dose: Not Given Documented By: LNG Imaging Data Radiologist's Impression: Chest X-Ray 02/22/25 17:07 EXAM: XR chest 1V portable CLINICAL HISTORY: Chest pain, nonspecific TECHNIQUE: An X-ray image of the chest is obtained in AP projection. COMPARISON: 04/03/2021. FINDINGS: Pulmonary Parenchyma: No evidence of consolidation, collapse, or focal opacities. No pulmonary nodules are identified. Left lower zonal atelctatic band. No evidence of pleural effusion or pleural thickening. Heart and Mediastinum: Heart size and shape are normal. No mediastinal widening or masses. No hilar or mediastinal lymphadenopathy. Bony Thorax: Bony thorax appears intact without fractures or deformities. Right humeral head two screws. Right glenohumeral joint osteoarthrtic changes. Soft Tissues: Soft tissues overlying the chest wall are unremarkable. IMPRESSION: 1. No acute cardiopulmonary abnormalities are identified. 2. No interval changes. Electronically signed by Kashmir Ross 02-22-2025 7:46 PM Discharge Plan Visit Data Chief Complaint: Chest Pain Stated Complaint: Chest Pain ED Provider: Nikolas Orellana Discharge Problem: Chest pain, Atrial flutter, paroxysmal Patient Disposition: Admitted As Inpatient Condition: Fair Forms Stand Alone Forms: [facility] Prescriptions Prescriptions: No Action carbidopa-levodopa [Sinemet] 25-100 mg tablet 2.5 tab PO TID Rx Instructions: 0500, 1100, 1700 carbidopa-levodopa 25-100 mg tablet extended release 2 tab PO .HS@2200 nitroglycerin [Nitrostat] 0.4 mg tablet, sublingual 0.4 mg SL .Q5MIN MDD 3 DOSES PRN (Reason: Chest Pain) clonidine HCl 0.1 mg Tablet 0.05 mg PO QAM clonidine HCl 0.1 mg Tablet 0.1 mg PO HS acetaminophen [Tylenol] 325 mg Tablet 650 mg PO Q4H MDD 3 GRAMS APAP/24 HOURS PRN (Reason: Pain) omega-3 fatty acids 1,000 mg Capsule 1,000 mg PO QAM amlodipine 5 mg Tablet 5 mg PO BIDM docusate sodium 100 mg Capsule 100 mg PO QPM gabapentin 300 mg Capsule 300 mg PO QPM furosemide [Lasix] 20 mg Tablet 20 mg PO Q24H PRN (Reason: Edema) nystatin 100,000 unit/gram Powder 1 applic TOPICAL DIRECTED PRN (Reason: ABD FOLD/SKIN EXCORIATION) calcium carbonate-vitamin D3 [Oyster Shell Calcium-Vit D3] 500 mg-5 mcg (200 unit) Tablet 1 tab PO QAM Eliquis 2.5 mg Tablet 2.5 mg PO Q12H Referrals Referrals: Michael Gardiner DO [Primary Care Provider] - Discharge Problem: Chest pain Qualifiers: Chest pain type: unspecified Qualified Code(s): R07.9 - Chest pain, unspecified
[2025-02-22 18:17] LABS: Alanine Aminotransferase < 3 U/L (7-52)
[2025-02-22] MEDS: CARBIDOPA/LEVODOPA 25/100MG TAB PO STA (19:35)
[2025-02-22] MEDS: GABAPENTIN 300 MG CAP PO SCH (19:36)
--- NOTE | 2025-02-22 19:46 | XRay Report ---
EXAM: XR chest 1V portable CLINICAL HISTORY: Chest pain, nonspecific TECHNIQUE: An X-ray image of the chest is obtained in AP projection. COMPARISON: 04/03/2021. FINDINGS: Pulmonary Parenchyma: No evidence of consolidation, collapse, or focal opacities. No pulmonary nodules are identified. Left lower zonal atelctatic band. No evidence of pleural effusion or pleural thickening. Heart and Mediastinum: Heart size and shape are normal. No mediastinal widening or masses. No hilar or mediastinal lymphadenopathy. Bony Thorax: Bony thorax appears intact without fractures or deformities. Right humeral head two screws. Right glenohumeral joint osteoarthrtic changes. Soft Tissues: Soft tissues overlying the chest wall are unremarkable. IMPRESSION: 1. No acute cardiopulmonary abnormalities are identified. 2. No interval changes. Electronically signed by Kashmir Ross 02-22-2025 7:46 PM
--- NOTE | 2025-02-22 23:06 | History & Physical Report ---
Date of Service February 22, 2025 Assessment & Plan (1) Chest pain: (2) Atrial flutter: Plan 89-year-old female PMHx HTN, hypercholesterolemia, Parkinson's disease, and osteopenia presenting for sudden onset of midsternal chest pain starting the night of arrival while at rest. ED evaluation reveals CBC without leukocytosis, stable H&H; CMP BUN/creatinine ratio 23.1, glucose 100, ALT <3; troponin 8.7, 9.9 on repeat; lipase 47; CXR no acute findings; EKG sinus rhythm with premature supraventricular complexes, minimal voltage criteria for LVH at 82 bpm.; Provided with gabapentin 300 mg p.o and carbidopa levodopa in the ED. #Chest pain/Aflutter, new onset Chest pain starting at rest while watching TV, lasting 25 minutes in duration and described as a midsternal squeeze, 6 or 7 out of 10 on the pain scale and currently chest pain-free. Received NTG prior to arrival to ED, chest pain then resolving. Pt was noted to have an episode of Aflutter on telemetry while in ED; diltiazem was ordered but by the time dosing was to be completed, the patient was back in NSR. No history of Afib or Aflutter. Pt is on Eliquis "because the hospital wanted me to start this." - CBC without leukocytosis, stable H/H; CMP grossly unremarkable; TSH pending, Mg pending -- BMP am - Troponin 8.7, 9.9 on repeat - repeat x 1 am - EKG sinus rhythm with premature supraventricular complexes at 82 bpm, no ischemic changes - CXR without acute findings - Echo 2020 concentric LVH, EF 65 to 70% - pending repeat - Lipid panel 2020 total 119, LDL 59, HDL 44, TG 78 - pending repeat - Cardiology consulted -- appreciate input + recs #HTN- Amlodipine, clonidine - continue #Edema- Furosemide as needed - Hold at admission and add back as appropriate #Parkinson's disease- Carbidopa levodopa - continue Dispo: Obs, med/tele VTE prophylaxis: On Eliquis -continue This document was dictated utilizing [employer]. Please excuse any grammatical errors that may be secondary to use of this software. Admission and Anticipated Discharge Date Admission Date: 02/22/2025 History of Present Illness Chief Complaint: Chest pain Primary Care Provider: Michael Gardiner DO 89-year-old female PMHx HTN, hypercholesterolemia, Parkinson's disease, and osteopenia presenting for sudden onset of midsternal chest pain starting the night of arrival while at rest. Patient states she was sitting watching TV when she suddenly got a midsternal chest discomfort. She describes it as a squeezing sensation, rating the pain and that it was causing a 6-7 out of 10 on the pain scale. She states that it lasted for approximately 25 minutes in duration and then resolved completely after having nitroglycerin. It did not radiate to her arm/neck/back/jaw. She felt slightly nauseous but did not have any vomiting. No diaphoresis. States that she has not had this happen before. Occasionally will get chest sensation where her heart is "sometimes racing, going fast." The last time this happened was in [place], but then today she stated that she felt similar symptoms. She does occasionally have episodes of dizziness, but no recent falls. She is denying any current chest pain. 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 No calf tenderness. States that her leg swelling is at her baseline. Denies SOB, abdominal pain, diarrhea, vomiting, numbness/tingling, fever/chills, LUTS, URI symptoms, weakness, or syncope. She has not taken her Lasix in a few days per her report. She is asking for something to eat and drink during this visit. ED evaluation reveals CBC without leukocytosis, stable H&H; CMP BUN/creatinine ratio 23.1, glucose 100, ALT <3; troponin 8.7, 9.9 on repeat; lipase 47; CXR no acute findings; EKG sinus rhythm with premature supraventricular complexes, minimal voltage criteria for LVH at 82 bpm.; Provided with gabapentin 300 mg p.o and carbidopa levodopa in the ED. Please see Dr. Castaneda's attestation for adjustments/additions to treatment plan. Allergies Allergy/AdvReac Type Severity Reaction Status Date / Time adhesive tape Allergy Unknown ON [facility] Verified 02/22/25 18:22 MED LIST droxidopa Allergy Unknown ON [facility] Verified 02/22/25 18:22 MED LIST enalapril Allergy Unknown ON [facility] Verified 02/22/25 18:22 MED LIST amantadine AdvReac Severe could not Verified 02/22/25 18:22 wake up lisinopril AdvReac Severe blood Verified 02/22/25 18:22 pressure bottoms out morphine AdvReac Severe B/P Verified 02/22/25 18:22 "bottoms out" alendronate sodium AdvReac Unknown can't Verified 02/22/25 18:22 [From Fosamax] remember hydralazine AdvReac Unknown can't Verified 02/22/25 18:22 remember Home Medications Medication Instructions Recorded Confirmed Type carbidopa 25 mg-levodopa 100 mg 2.5 tab PO TID 02/24/20 02/22/25 History tablet (Sinemet) carbidopa ER 25 mg-levodopa 100 mg 2 tab PO .HS@2200 02/29/20 02/22/25 History tablet,extended release nitroglycerin 0.4 mg sublingual 0.4 mg sublingual .Q5MIN PRN Chest 04/03/21 02/22/25 History tablet (Nitrostat) Pain acetaminophen 325 mg tablet 650 mg PO Q4H PRN Pain 02/22/25 02/22/25 History (Tylenol) amlodipine 5 mg tablet 5 mg PO BIDM 02/22/25 02/22/25 History apixaban 2.5 mg tablet (Eliquis) 2.5 mg PO Q12H 02/22/25 02/22/25 History calcium 500 mg (as 1 tab PO QAM 02/22/25 02/22/25 History carbonate)-vitamin D3 5 mcg (200 unit) tablet (Oyster Shell Calcium-Vitamin D3) clonidine HCl 0.1 mg tablet 0.05 mg PO QAM 02/22/25 02/22/25 History clonidine HCl 0.1 mg tablet 0.1 mg PO HS 02/22/25 02/22/25 History docusate sodium 100 mg capsule 100 mg PO QPM 02/22/25 02/22/25 History furosemide 20 mg tablet (Lasix) 20 mg PO Q24H PRN Edema 02/22/25 02/22/25 Histor y gabapentin 300 mg capsule 300 mg PO QPM 02/22/25 02/22/25 History nystatin 100,000 unit/gram topical 1 applic topical DIRECTED PRN 02/22/25 02/22/25 History powder ABD FOLD/SKIN EXCORIATION omega-3 fatty acids 1,000 mg 1,000 mg PO QAM 02/22/25 02/22/25 History capsule Past Med/Surg History Problem List (Updated 02/23/25 @ 00:33 by Nikolas Orellana MD) Atrial flutter, paroxysmal (Acute) Chest pain (Acute) Atrial flutter HTN (hypertension) (Acute) Lab test negative for COVID-19 virus (Acute) T wave inversion in EKG (Acute) Bradycardia on ECG Chest pain (Acute) Labile blood pressure Syncope Rib fracture Renal cyst, right Cyst of kidney, acquired (Acute) Diverticulosis (Acute) Empty sella syndrome (Acute) Fatty liver disease, nonalcoholic (Acute) Hyperactivity of bladder (Acute) Hypercholesterolemia (Acute) Hyponatremia (Acute) Insomnia (Acute) Labile hypertension (Acute) Multiple thyroid nodules (Acute) Osteopenia (Acute) Parkinson's disease (Acute) Vitamin D deficiency (Acute) Hypertension (Chronic) H/O non-ST elevation myocardial infarction (NSTEMI) Medical History (Updated 02/23/25 @ 00:33 by Nikolas Orellana MD) Vertigo Hypertensive urgency Surgical History History of varicose vein ligation S/P rotator cuff repair S/P hysterectomy S/P cataract surgery S/P lumpectomy of breast S/P appendectomy Family History Mother Myocardial infarction Diabetes Sister Breast cancer Father Stroke Denies family history of Ovarian cancer Prostate cancer Congenital kidney disease Colorectal cancer Social History Smoking Status: Former smoker Tobacco Type: Cigarettes Age Started Using Tobacco: 19; Age Quit Using Tobacco: 41; packs per day: 1.5; Cigarettes Per Day: 30; Second Hand Exposure: No; Do You Dip or Chew Tobacco: No; Hx Alcohol Use: No Hx Substance Use: No Preferred Language: Tristanian Communication Ability: Effective Hearing Ability: Normal Business Ethics Professor Required: No Beliefs That Will Affect Care: None marital status: Current Living Situation: Family current occupational status: retired current occupation: Worked in a [employer] in [place] Feels Safe at Home: Yes Safety Concerns Comment: Currently packing up house, boxes are everywhere, worried about falling Childhood Exposure to Second-Hand Smoke: No Diet: regular caffeine: Yes during the past year weight has: remained stable Dental Care, Regularly: Yes Physical Activity Frequency: Does not Exercise Seatbelt Use: always Sunscreen Use: No Assistive Devices: Glasses and Walker Review of Systems Review of Systems: All systems reviewed & are unremarkable except as noted in Subjective Physical Exam Physical Exam: General: No acute distress Skin: Warm and dry Head: Normocephalic, atraumatic Eyes: PERRL, conjunctivae clear, sclera non-icteric ENT: External ear and ear canal without swelling; nose atraumatic; good dentition, tongue normal appearance, pharynx normal appearing slightly dry Neck: Supple, no LAD Cardio: RRR, no M/G/R, S1 and S2 normal Resp: No respiratory distress, Lungs CTA in all lobes bilaterally, no wheezes, rales, or rhonchi Abdomen: Soft, symmetric, nontender; No masses or hepatosplenomegaly; Bowel sounds normoactive MSK: No deformities; pulses palpable and equal; 1+ pitting edema BLE. Neuro: Awake, alert; Sensation intact bilaterally; CN grossly intact Psych: Slow to talk, flat affect, quiet voice; good judgement and insight. Results & Data Results & Data Vital Signs (Past 12 Hours) Vital Signs Temp Pulse Pulse Resp BP BP Pulse Ox 02/22/25 22:03 64 22 119/72 93 02/22/25 21:30 67 22 111/70 95 02/22/25 20:36 97/79 L 02/22/25 20:30 94/66 L 02/22/25 19:30 123 H 16 157/106 H 93 02/22/25 18:48 107 H 16 93 02/22/25 18:30 166/108 H 02/22/25 18:00 182/92 H 02/22/25 17:57 76 15 94 02/22/25 17:54 79 02/22/25 17:42 76 24 93 02/22/25 17:17 80 15 95 02/22/25 17:17 78 20 185/104 H 94 02/22/25 17:17 95 02/22/25 17:03 36.8 C 82 22 193/115 H 95 O2 Del Method 02/22/25 22:03 Room Air 02/22/25 21:30 02/22/25 20:36 02/22/25 20:30 02/22/25 19:30 02/22/25 18:48 02/22/25 18:30 02/22/25 18:00 02/22/25 17:57 02/22/25 17:54 02/22/25 17:42 02/22/25 17:17 Room Air 02/22/25 17:17 Room Air 02/22/25 17:17 Room Air 02/22/25 17:03 Room Air Laboratory Results 02/22/25 02/22/25 19:10 17:14 WBC 8.13 RBC 4.87 Hgb 13.8 Hct 42.3 MCV 86.9 MCH 28.3 MCHC 32.6 RDW Std Deviation 48.7 H RDW Coeff of Radha 15.3 H Plt Count 248 MPV 9.3 L Immature Gran % (Auto) 0.5 Neut % (Auto) 61.5 Lymph % (Auto) 26.1 [place] % (Auto) 9.6 Eos % (Auto) 1.8 Baso % (Auto) 0.5 Neut # (Auto) 5.00 Lymph # (Auto) 2.12 [place] # (Auto) 0.78 H Eos # (Auto) 0.15 Baso # (Auto) 0.04 Immature Gran # (Auto) 0.04 Sodium 138 Potassium 3.9 Chloride 102 Carbon Dioxide 29 Anion Gap 7 BUN 18 Creatinine 0.78 Est Cr Clr Drug Dosing 47.7 eGFR 73.01 BUN/Creatinine Ratio 23.1 H Glucose 100 H Calcium 9.4 Total Bilirubin 0.4 AST 13 ALT < 3 L Alkaline Phosphatase 78 Troponin I High Sens 9.9 8.7 Total Protein 7.0 Albumin 3.7 Globulin 3.3 Albumin/Globulin Ratio 1.1 Lipase 47 Diagnostic Findings Chest X-Ray 02/22/25 17:07 EXAM: XR chest 1V portable CLINICAL HISTORY: Chest pain, nonspecific TECHNIQUE: An X-ray image of the chest is obtained in AP projection. COMPARISON: 04/03/2021. FINDINGS: Pulmonary Parenchyma: No evidence of consolidation, collapse, or focal opacities. No pulmonary nodules are identified. Left lower zonal atelctatic band. No evidence of pleural effusion or pleural thickening. Heart and Mediastinum: Heart size and shape are normal. No mediastinal widening or masses. No hilar or mediastinal lymphadenopathy. Bony Thorax: Bony thorax appears intact without fractures or deformities. Right humeral head two screws. Right glenohumeral joint osteoarthrtic changes. Soft Tissues: Soft tissues overlying the chest wall are unremarkable. IMPRESSION: 1. No acute cardiopulmonary abnormalities are identified. 2. No interval changes. Electronically signed by Kashmir Ross 02-22-2025 7:46 PM Medications Administered Carbidopa levodopa 2.5 tabs p.o. Gabapentin 200 mg p.o. ECG Additional Comments: Sinus rhythm with PSVCs, LVH 82 bpm, VT 182, QRS 78, QT/QTc 364/425, PRT 33/-23/40 Code Status & VTE Plan Code Status DNR/DNI Supervising Physician Co-Signing Physician Notes Patient seen and examined, chart reviewed, case discussed with DIEGO Ashton and I agree with the assessment and plan as above. In brief, patient is a 89yo female with history of HTN, HLP presenting with episode of chest pain prior to arrival, relieved with Nitro. On monitor patient with intermittent atrial fibrillation/atrial flutter noted. On exam she is sleeping comfortably in A3 +S1/S2, regular, no m/r/g Lungs - CTA anteriorly Abd - +BS, soft, NT/ND Labs and images reviewed Troponin = 8.7 --> 9.9 at 2 hours (less than 20% increase) Patient is already on Eliquis - she is not sure why Patient is seen by a [facility] PCP but comes to [place] hospitalist service due to insurance being out of network. For most recent information will request PCP notes from [employer] system. Order request placed Assessment/Plan Observation to medical with telemetry Obtain AM troponin, Lipid panel Continue home Eliquis - uncertain why patient is taking this medication currently. Records requested. She could be on 5mg BID (age=89, wt=73kg, Cr=0.78) She is rate controlled at present so will not add any additional medications at present May need to be scheduled for outpatient stress testing if not performed recently Cardiology consultation appreciated Remainder as above PG Care Time/CCT Total # of Minutes Spent Total Time Spent with Patient: Total time spent is greater than 50% in coordination of care (as documented) at patient's floor/unit and/or counseling patient: Coding Level of Care Code 02502 INT INP/OBS CARE 3/75MIN Diagnoses Chest pain R07.2 Chest pain type: precordial pain Atrial flutter I48.92 (1) Chest pain Chest pain type: precordial pain Qualified Code(s): R07.2 - Precordial pain
[2025-02-23 00:07] LABS: Magnesium 2.2 mg/dl (1.7-2.4)
[2025-02-23 00:23] LABS: Thyroid Stimulating Hormone 2.435 uIu/ml (0.300-4.500)
[2025-02-23] MEDS ORDERED: POLYETHYLENE (MIRALAX) 17 GM PACK PO PRN (02:33)
[2025-02-23] MEDS ORDERED: NYSTATIN POWDER 15GM BTL EXT PRN (02:33)
[2025-02-23] MEDS ORDERED: ONDANSETRON INJ 2 MG/ML 2 ML VIAL IV PRN (02:33)
[2025-02-23] MEDS ORDERED: ACETAMINOPHEN 325 MG TAB PO PRN (02:33)
[2025-02-23] MEDS ORDERED: NITROGLYCERIN SL 0.4 MG/TAB TAB SL PRN (02:33)
[2025-02-23] MEDS: APIXABAN 2.5 MG TAB PO SCH (03:58)
[2025-02-23] MEDS: CARBIDOPA/LEVODOPA 25/100MG TAB PO SCH (05:27)
[2025-02-23 06:37] LABS: Anion Gap 6.0 (3-11); Blood Urea Nitrogen 19.0 mg/dl (6-23); Calcium 8.8 mg/dl (8.6-10.3); Carbon Dioxide 31.0 mmol/L (21-32); Chloride 105.0 mmol/L (98-107); Cholesterol 161.0 mg/dl (0-200); Creatinine Clr Calc Pharmacy 39.1 ml/min; Glucose 75.0 mg/dl (70-99(Fasting)); HDL Cholesterol 38.0 mg/dl; Potassium 3.9 mmol/L (3.5-5.1); Sodium 142.0 mmol/L (136-145); Triglycerides 95.0 mg/dl (0-150)
[2025-02-23 10:20] LABS: Appearance Urine Clear (Clear); Bacteria Urine Automated 4+ (None Seen); Cast Urine Automated 0-2 /lpf (0-2); Epithelial Cell Urine Auto 0-2 /hpf (0-2); Glucose Urine UA Negative (Negative); WBC Urine Automated 21-50 /hpf (0-5)
[2025-02-23 11:28] VITALS: BP 191/92; RESP 20; TEMP 97.5; O2SAT 94
--- NOTE | 2025-02-23 11:28 | Cardiology Consultation ---
Date of Consultation February 23, 2025 Assessment & Plan (1) Chest pain: (2) Atrial flutter, paroxysmal: (3) HTN (hypertension): Plan recommend medical therapy. If remains stable can be DC back to home. Follow up with cardiology post DC if symptoms continue. Thank you for the consult. Will follow for now. History of Present Illness Attending Physician: Eduardo Lehman MD, PhD History of Present Illness This an 89-year-old female presenting for chest pain. She had this pain prior to arrival. EKGs as below. Will get basic blood work to help assess. Patient not hypoxic, tachycardic suggest PE. No radiation of pain or current pain to suggest dissection. - ECG reviewed/ interpreted by me with normal sinus rhythm with PVC,, rate of 82, normal MN, normal QRS, normal QTc, no ST segment elevations - Bloodwork is reviewed showing no significant leukocytosis, anemia, electrolyte or creatinine abnormality. Negative troponin - Delta troponin also negative - Chest Xray independently interpreted by me showing no pneumothorax, focal opacity, or pleural effusions. - Interesting patient went into an a flutter here with a rate between 100 and 125. - ECG independently interpreted by me with atrial flutter with variable block, rate of 93, normal QRS, normal QTc, no ST segment elevations consistent with STEMI criteria - Had ordered diltiazem for help controlling rate however she converted out being sinus rhythm within 45 minutes. The ER called me at the time of her presentation and I recommended that she be monitored overnight. Allergies Allergy/AdvReac Type Severity Reaction Status Date / Time adhesive tape Allergy Unknown ON [facility] Verified 02/22/25 18:22 MED LIST droxidopa Allergy Unknown ON [facility] Verified 02/22/25 18:22 MED LIST enalapril Allergy Unknown ON [facility] Verified 02/22/25 18:22 MED LIST amantadine AdvReac Severe could not Verified 02/22/25 18:22 wake up lisinopril AdvReac Severe blood Verified 02/22/25 18:22 pressure bottoms out morphine AdvReac Severe B/P Verified 02/22/25 18:22 "bottoms out" alendronate sodium AdvReac Unknown can't Verified 02/22/25 18:22 [From Fosamax] remember hydralazine AdvReac Unknown can't Verified 02/22/25 18:22 remember Home Medications Medication Instructions Recorded Confirmed Type carbidopa 25 mg-levodopa 100 mg 2.5 tab PO TID 02/24/20 02/22/25 History tablet (Sinemet) carbidopa ER 25 mg-levodopa 100 mg 2 tab PO .HS@2200 02/29/20 02/22/25 History tablet,extended release acetaminophen 325 mg tablet 650 mg PO Q4H PRN Pain 02/22/25 02/22/25 History (Tylenol) amlodipine 5 mg tablet 5 mg PO BIDM 02/22/25 02/22/25 History apixaban 2.5 mg tablet (Eliquis) 2.5 mg PO Q12H 02/22/25 02/22/25 History calcium 500 mg (as 1 tab PO QAM 02/22/25 02/22/25 History carbonate)-vitamin D3 5 mcg (200 unit) tablet (Oyster Shell Calcium-Vitamin D3) clonidine HCl 0.1 mg tablet 0.05 mg PO QAM 02/22/25 02/22/25 History clonidine HCl 0.1 mg tablet 0.1 mg PO HS 02/22/25 02/22/25 History docusate sodium 100 mg capsule 100 mg PO QPM 02/22/25 02/22/25 History furosemide 20 mg tablet (Lasix) 20 mg PO Q24H PRN Edema 02/22/25 02/22/25 History gabapentin 300 mg capsule 300 mg PO QPM 02/22/25 02/22/25 History nystatin 100,000 unit/gram topical 1 applic topical DIRECTED PRN 02/22/25 02/22/25 History powder ABD FOLD/SKIN EXCORIATION omega-3 fatty acids 1,000 mg 1,000 mg PO QAM 02/22/25 02/22/25 History capsule cefuroxime axetil 250 mg tablet 250 mg PO BID #5 tabs 02/23/25 Rx nitroglycerin 0.4 mg sublingual 0.4 mg sublingual .Q5MIN PRN Chest 02/23/25 Rx tablet (Nitrostat) Pain #25 tabs Patient History Medical History Vertigo Hypertensive urgency Surgical History History of varicose vein ligation S/P rotator cuff repair S/P hysterectomy S/P cataract surgery S/P lumpectomy of breast S/P appendectomy Family History Mother Myocardial infarction Diabetes Sister Breast cancer Father Stroke Denies family history of Ovarian cancer Prostate cancer Congenital kidney disease Colorectal cancer Social History Smoking Status: Former smoker Tobacco Type: Cigarettes Age Started Using Tobacco: 19; Age Quit Using Tobacco: 41; packs per day: 1.5; Cigarettes Per Day: 30; Second Hand Exposure: No; Do You Dip or Chew Tobacco: No; Hx Alcohol Use: Yes (10 years ago) Alcohol type: beer and wine Hx Substance Use: No Preferred Language: Central African Communication Ability: Effective Hearing Ability: Normal Property Site Manager Required: No Beliefs That Will Affect Care: None marital status: Current Living Situation: Prison Current Living Situation Comment: lives in assisted living facility current occupational status: retired current occupation: Worked in a [employer] in [place] Other Information That Helps Us Care for You: No Feels Safe at Home: Yes Safety Concerns: Feels Safe At This Time Safety Concerns Comment: Currently packing up house, boxes are everywhere, worried about falling Childhood Exposure to Second-Hand Smoke: No Diet: regular caffeine: Yes during the past year weight has: remained stable Dental Care, Regularly: Yes Physical Activity Frequency: Does not Exercise Seatbelt Use: always Sunscreen Use: No Assistive Devices: Wheelchair Assistive Devices Comment: Pt had full upper dentures and partial lower dentures Review of Systems Review of Systems: All systems reviewed & are unremarkable except as noted in HPI & below Physical Exam Physical Exam: elderly, no a good historial comfortable in NAD Respiratory: normal respiratory effort, lungs clear to auscultation Chest (Breasts): Additional Comments: heart reg ODIN at base no edema Results & Data Vital Signs (Past 12 Hours) Vital Signs Temp Pulse Pulse Resp BP BP Pulse Ox 02/23/25 08:13 36.3 C L 61 12 150/82 H 97 02/23/25 05:46 62 02/23/25 02:51 02/23/25 02:33 36.5 C 17 144/82 H 92 02/23/25 02:21 67 02/23/25 01:30 105/60 02/23/25 01:30 59 L 18 105/60 93 02/23/25 00:30 99/63 L 02/23/25 00:00 119/77 02/23/25 00:00 64 20 119/77 95 02/22/25 23:30 64 16 123/72 O2 Del Method 02/23/25 08:13 Room Air 02/23/25 05:46 02/23/25 02:51 Room Air 02/23/25 02:33 Room Air 02/23/25 02:21 02/23/25 01:30 02/23/25 01:30 02/23/25 00:30 02/23/25 00:00 02/23/25 00:00 02/22/25 23:30 Laboratory Results Abnormal lab results 02/22/25 02/23/25 02/23/25 Range/Units 17:14 05:24 08:48 RDW Std Deviation 48.7 H (36.4-46.3) fL RDW Coeff of Radha 15.3 H (11.5-14.5) % MPV 9.3 L (9.4-12.4) fL [place] # (Auto) 0.78 H (0.11-0.59) K/uL BUN/Creatinine Ratio 23.1 H 21.1 H (10-20) Glucose 100 H (70-99(Fasting)) mg/dl Lactate 2.3 H* (0.4-2.0) mmol/L ALT < 3 L (7-52) U/L Urine Ketones (Negative) Urine Nitrite (Negative) Ur Leukocyte Esterase (Negative) Urine WBC (Auto) (0-5) /hpf Urine RBC (Auto) (0-2) /hpf Urine Bacteria (Auto) (None Seen) 02/23/25 Range/Units 10:05 RDW Std Deviation (36.4-46.3) fL RDW Coeff of Radha (11.5-14.5) % MPV (9.4-12.4) fL [place] # (Auto) (0.11-0.59) K/uL BUN/Creatinine Ratio (10-20) Glucose (70-99(Fasting)) mg/dl Lactate (0.4-2.0) mmol/L ALT (7-52) U/L Urine Ketones Trace H (Negative) Urine Nitrite Positive A (Negative) Ur Leukocyte Esterase 3+ H (Negative) Urine WBC (Auto) 21-50 H (0-5) /hpf Urine RBC (Auto) 3-5 H (0-2) /hpf Urine Bacteria (Auto) 4+ H (None Seen) Medications Administered Current Inpatient Medications Acetaminophen (Acetaminophen 325 Mg Tab) 650 mg PO Q4H PRN PRN Reason: Pain Stop: 03/25/25 02:32 Amlodipine Besylate (Amlodipine Besylate 5 Mg Tab) 5 mg PO BIDM HELEN Stop: 03/25/25 07:59 Last Admin: 02/23/25 08:15 Dose: 5 mg Apixaban (Apixaban 2.5 Mg Tab) 2.5 mg PO Q12H HELEN Stop: 03/25/25 02:32 Last Admin: 02/23/25 03:58 Dose: 2.5 mg Carbidopa/Levodopa (Carbidopa/Levodopa 25/100mg Tab) 2.5 tab PO 0500,1100,1700 HELEN Stop: 03/25/25 04:59 Last Admin: 02/23/25 10:47 Dose: 2.5 tab Carbidopa/Levodopa (Carbidopa/Levodopa 25/100mg Ext Rel Tab) 2 tab PO 2200 HELEN Stop: 03/25/25 21:59 Clonidine HCl (Clonidine Hcl 0.1 Mg Tab) 0.05 mg PO QAM HELEN Stop: 03/25/25 08:59 Last Admin: 02/23/25 08:15 Dose: 0.05 mg Clonidine HCl (Clonidine Hcl 0.1 Mg Tab) 0.1 mg PO HS HELEN Stop: 03/25/25 20:59 Docusate Sodium (Docusate Sodium 100 Mg Cap) 100 mg PO QPM HELEN Stop: 03/25/25 20:59 Nitroglycerin (Nitroglycerin Sl 0.4 Mg/Tab Tab) 0.4 mg SL .Q5MIN PRN PRN Reason: Chest Pain Stop: 03/25/25 02:32 Nystatin (Nystatin Powder 15gm Btl) 1 appln EXT BID PRN PRN Reason: ABD FOLD/SKIN EXCORIATION Stop: 03/25/25 02:32 Ondansetron HCl (Ondansetron Inj 2 Mg/Ml 2 Ml Vial) 4 mg IV Q6H PRN PRN Reason: Nausea Stop: 03/25/25 02:32 Polyethylene Glycol (Polyethylene (Miralax) 17 Gm Pack) 17 gm PO DAILY PRN PRN Reason: Constipation Stop: 03/25/25 02:32 ECG Additional Comments: as above (1) Chest pain Chest pain type: unspecified Qualified Code(s): R07.9 - Chest pain, unspecified (3) HTN (hypertension) Hypertension type: unspecified Qualified Code(s): I10 - Essential (primary) hypertension
[2025-02-23 15:35] VITALS: PULSE 64
--- NOTE | 2025-02-23 17:23 | Discharge Summary ---
Discharge Summary Date of Service February 23, 2025 Principal Dx & Hospital Course #1 = Principal Diagnosis (1) Chest pain: Atypical chest pain in the setting of HTN urgency with admission BP 193/115 (02/22/2025, 5:03pm) without end-organ failure (cf., normal creatinine 0.78 mg/dL, 02/22/2025, 5:14pm), followed by lability in blood pressures (cf., shiva BP 99/63 (02/23/2025, 12:30am), repeat BP 105/60 (02/23/2025, 1:30am), repeat BP 144/82 (02/23/2025, 2:33am), repeat BP 150/82 (02/23/2025, 8:13am), repeat BP 191/92 (02/23/2025, 11:27am), discharge BP 191/92 (02/23/2025, 3:34pm). Of note, patient remained completely asymptomatic on arrival to [facility] ER on 02/22/2025, 5:00pm, and throughout hospitalization, and on hospital discharge on 02/23/2025, 3:45pm.. cf., troponin-I #1 8.7 pg/mL (02/22/2025, 5:14pm). cf., troponin-I #2 9.9 pg/mL (02/22/2025, 7:10pm). cf., troponin-I #3 11.0 pg/mL (02/23/2025, 5:24am). cf., TTE (02/23/2025, 7:17am): 1. LV wall motion normal at rest. 2. LVEF 55-60%. 3. Mild concentric LVH. 4. LA moderately dilated. 5. LV grade I diastolic dysfunction. 6. Moderate mitral annular calcification. 7. Mild mitral regurgitation. 8. Aortic sclerosis mild, without significant aortic stenosis. (as per CARDS Dr. Shell Santoyo). Given patient's asymptomatic state on arrival to [facility] ER on 02/22/2025, normal troponin-I levels noted above, and absence of any LV wall motion abnormalities (as noted on 02/23/2025, 7:17am TTE, CARDS Dr. Shell Santoyo), I surmise that patient's atypical chest pain may have been precipitated, in part, by patient's (a) new onset / transient atrial flutter without RVR, (b) HTN urgency with admission BP 193/115 (02/22/2025, 5:03pm) without end-organ failure (cf., normal creatinine 0.78 mg/dL, 02/22/2025, 5:14pm), and/or (c) acute UTI. cf., EKG #1 (02/22/2025, 5:09pm): NSR @ 82, IN 182, QTC 425, LVH, no acute ST depressions/elevations (by my review). cf., EKG #2 (02/22/2025, 8:40pm): atrial flutter @ 93, QTC 425, no LVH, no acute ST depressions/elevations; TWI in aVL (by my review). cf., EKG #3 (02/22/2025, 9:02pm): NSR @ 75, IN 182, QTC 417, no LVH, no acute ST depressions/elevations; TWI in V5 (by my review). At this time, I have opted to hold off any further evaluation of patient's atypical chest pain, and instead, to focus/treat patient's acute UTI (cf., 02/23/2025, 10:05am U/A with clear yellow urine, nitrite+, LE 3+, WBC 21-50, RBC 3-5, epithelial cells 0-2, and bacteria 4+; urine culture (02/23/2025, 10:05am) ), which is perhaps, the most common problem, behind mechanical fall(s), that brings an old lady to the ER. cf., past medical history of urinary incontinence with mancuso-sensitive E. coli UTI (as noted on 02/29/2020, 11:41am urine culture; 05/14/2020, 5:13pm urine culture). Patient was subsequently discharged back to [facility] ([place]) on 02/23/2025 with an electronic prescription for cefuroxime 250mg PO bid, #5 tablets, no refills, transmitted to her [facility], [address] [place] [id number], on 02/23/2025, prior to hospital discharge back to [facility] ([place]) on 02/23/2025. Patient was subsequently discharged back to [facility] ([place]) on 02/23/2025 with an electronic prescription for NTG 0.4mg SL q5 minutes prn chest pain, #25 tablets, no refills, transmitted to her [facility], [address] [place] [address], on 02/23/2025, prior to hospital discharge back to [facility] ([place]) on 02/23/2025. Of note, patient reports that she does not have any NTG tablets at home, and hence, patient requested that she be given a prescription for NTG, and I complied with the patient's request. Of final note, patient was advised to follow up with her CARDS Dr. Shell Santoyo within 5-7 days of hospital discharge, at which time, her acute UTI will have been treated with a 3 day course of cefuroxime 250mg PO bid that was started in [facility] on 02/23/2025, 1:36pm, and will stop at [facility] ([place]) on 02/25/2025, 8:00pm). (2) Atrial flutter: Patient spontaneously converted from NSR to atrial flutter without RVR to NSR in [facility] ER on observation date 02/22/2025. cf., EKG #1 (02/22/2025, 5:09pm): NSR @ 82, IN 182, QTC 425, LVH, no acute ST depressions/elevations (by my review). cf., EKG #2 (02/22/2025, 8:40pm): atrial flutter @ 93, QTC 425, no LVH, no acute ST depressions/elevations; TWI in aVL (by my review). cf., EKG #3 (02/22/2025, 9:02pm): NSR @ 75, IN 182, QTC 417, no LVH, no acute ST depressions/elevations; TWI in V5 (by my review). Patient remained in NSR in [facility] Telemetry bed #W253-1 on discharge date 02/23/2025. Patient did not require or receive any rate-controlling or rhythm-controlling medications while in [facility] from observation date 02/22/2025 through discharge date 02/23/2025. Patient received her home-scheduled apixaban 2.5mg PO q12 x 2 doses (02/23/2025, 3:58am, 3:46pm) while in [facility] from observation date 02/22/2025 through discharge date 02/23/2025. Patient will continue to receive her home-scheduled apixaban 2.5mg PO q12 on hospital discharge back to [facility] ([place]) on 02/23/2025. Plan 89 years old female with PMH of DNR/DNI @ [facility] ([place]), overweight with BMI 25.3 (height 160.0 cm; weight 64.9 kg), Parkinson's disease on carbidopa 25mg - levodopa 100mg tablet, 2.5 tablets PO tid, carbidopa 25mg - levodopa 100mg tablet, 2 tablets PO qhs, complicated by (a) urinary incontinence with mancuso-sensitive E. coli UTI (as noted on 02/29/2020, 11:41am urine culture; 05/14/2020, 5:13pm urine culture), (b) labile HTN with rapid swings between systolic 200 mm Hg or higher, to systolic 90 mm Hg or less in a few hours, with patient conceding "I am sensitive to blood pressure medications and can't take anything ending in -pril; I can't take labetalol cause that makes my heart slow down too much and my blood pressure drops too much," currently on amlodipine 5mg PO bid, clonidine 0.05mg PO qam and clonidine 0.1mg PO qhs @ [facility] ([place]). Patient also suffers from age-associated osteopenia with a normal Z score of - 0.5 (as reported on 05/28/2019 bone densitometry, RAD Dr. Louie Lomax), hyperlipidemia, not on lipid-lowering medication(s), and paroxysmal AFIB on apixaban 2.5mg PO Patient presented to [facility] ER on 02/22/2025 with complaints of sudden onset of midsternal chest pain starting on 02/22/2025 pm, while at rest. ED evaluation revealed CBC without leukocytosis, stable H&H; CMP BUN/creatinine ratio 23.1, glucose 100, ALT <3; troponin 8.7, 9.9 on repeat; lipase 47; CXR no acute findings; EKG sinus rhythm with premature supraventricular complexes, minimal voltage criteria for LVH at 82 bpm.; Patient received gabapentin 300 mg p.o and carbidopa levodopa in the ED. Patient was subsequently placed in OBSERVATION on the hospitalist service @ [facility] on 02/22/2025 with the following diagnoses: 1. New onset atrial flutter (as noted on 02/22/2025, 8:40pm EKG with atrial flutter with ventricular rate 93, QTC 425, TW in aVL, no acute ST depressions/elevations (by my review)). 2. Atypical chest pain in the setting of HTN urgency with admission BP 193/115 (02/22/2025, 5:03pm) without end-organ failure (cf., normal creatinine 0.78 mg/dL, 02/22/2025, 5:14pm), followed by lability in blood pressures (cf., shiva BP 99/63 (02/23/2025, 12:30am), repeat BP 105/60 (02/23/2025, 1:30am), repeat BP 144/82 (02/23/2025, 2:33am), repeat BP 150/82 (02/23/2025, 8:13am), repeat BP 191/92 (02/23/2025, 11:27am), discharge BP 191/92 (02/23/2025, 3:34pm). Initial Plan in [facility] ER included: #Chest pain/Aflutter, new onset Chest pain starting at rest while watching TV, lasting 25 minutes in duration and described as a midsternal squeeze, 6 or 7 out of 10 on the pain scale and currently chest pain-free. Received NTG prior to arrival to ED, chest pain then resolving. Pt was noted to have an episode of Aflutter on telemetry while in ED; diltiazem was ordered but by the time dosing was to be completed, the patient was back in NSR. No history of Afib or Aflutter. Pt is on Eliquis "because the hospital wanted me to start this." - CBC without leukocytosis, stable H/H; CMP grossly unremarkable; TSH pending, Mg pending -- BMP am - Troponin 8.7, 9.9 on repeat - repeat x 1 am - EKG sinus rhythm with premature supraventricular complexes at 82 bpm, no ischemic changes - CXR without acute findings - Echo 2020 concentric LVH, EF 65 to 70% - pending repeat - Lipid panel 2020 total 119, LDL 59, HDL 44, TG 78 - pending repeat - Cardiology consulted -- appreciate input + recs #HTN- Amlodipine, clonidine - continue #Edema- Furosemide as needed - Hold at admission and add back as appropriate #Parkinson's disease- Carbidopa levodopa - continue Dispo: Obs, med/tele VTE prophylaxis: On Eliquis -continue This document was dictated utilizing [employer]reezie. Please excuse any grammatical errors that may be secondary to use of this software. Admission HPI Per Admitting Provider 89-year-old female PMHx HTN, hypercholesterolemia, Parkinson's disease, and osteopenia presenting for sudden onset of midsternal chest pain starting the night of arrival while at rest. Patient states she was sitting watching TV when she suddenly got a midsternal chest discomfort. She describes it as a squeezing sensation, rating the pain and that it was causing a 6-7 out of 10 on the pain scale. She states that it lasted for approximately 25 minutes in duration and then resolved completely after having nitroglycerin. It did not radiate to her arm/neck/back/jaw. She felt slightly nauseous but did not have any vomiting. No diaphoresis. States that she has not had this happen before. Occasionally will get chest sensation where her heart is "sometimes racing, going fast." The last time this happened was in [place], but then today she stated that she felt similar symptoms. She does occasionally have episodes of dizziness, but no recent falls. She is denying any current chest pain. Does occasionally have constipation, last bowel movement was 2 days MINER. No calf tenderness. States that her leg swelling is at her baseline. Denies SOB, abdominal pain, diarrhea, vomiting, numbness/tingling, fever/chills, LUTS, URI symptoms, weakness, or syncope. She has not taken her Lasix in a few days per her report. She is asking for something to eat and drink during this visit. ED evaluation reveals CBC without leukocytosis, stable H&H; CMP BUN/creatinine ratio 23.1, glucose 100, ALT <3; troponin 8.7, 9.9 on repeat; lipase 47; CXR no acute findings; EKG sinus rhythm with premature supraventricular complexes, minimal voltage criteria for LVH at 82 bpm.; Provided with gabapentin 300 mg p.o and carbidopa levodopa in the ED. Please see Dr. Castaneda's attestation for adjustments/additions to treatment plan. Discharge Exam Constitutional General: Comfortable, coherent, and cooperative. Not confused or obtunded, but lethargic. Patient speaks very slowly, but in complete, fluent, and articulate sentences without pause, interruption, cough, or wheeze with O2 sat 94% on room air (02/23/2025, 3:34pm). HEENT: Normocephalic, atraumatic. No nystagmus, gaze paresis, anisocoria, miosis, mydriasis, hyphema, scleral injection, conjunctivitis, or pterygium. No lid lag. No proptosis/exophthalmos. No otorrhea or rhinorrhea. 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 No pharyngeal erythema, edema, or discharge. Neck: Supple, no stridor, bruit, goiter, or hepato-jugular reflux. Jugular venous pressure is estimated to be 3 cm above the sternal angle of Kushal, which in turn, is 5 cm above the level of the right atrium; with jugular venous pressure estimated to be 8 cm, then, there is no jugular venous distention on 02/23/2025. Lymphatics: No cervical (anterior/posterior), supraclavicular, infraclavicular, axillary, epitrochlear, or inguinal adenopathy. Chest: Symmetric rise and fall with respirations. Non-tender to palpation. Lungs: Clear to auscultation and percussion. No audible expiratory wheeze, egophony, pectoriloquy, increase in tactile fremitus, or flatness/dullness to percussion at the bases. Heart: Regular rate and rhythm. S1 and S2 noted. No S3 or S4 summation gallop. No tripartite friction rub. Grade II/ early systolic murmur @ LLSB without radiation to the carotids, axilla, or back, and which remains invariant in regards to the respiratory cycle. Abdomen: Soft, non-tender, non-distended. No rebound, guarding, Nogueira's sign, or organomegaly. Bowel sounds auscultated in all 4 quadrants. Extremities: No clubbing, cyanosis, or edema. Skin: No decubitus ulcer, exanthem, or enanthem. Neurology: Alert & oriented in regards to person, place, time, and situation. DTR+. 5/5 motor strength in all 4 extremities, both proximally and distally. No myoclonus, tremors, or tics. Urology: No rasheed catheter. No urethral discharge. Psychiatry: No suicidal ideation. No anxiety. No insomnia. Smiles appropriately. Discharge Plan Discharge Items Patient Disposition: Home - Home Health Services Reason For Visit: CP, AFLUTTER NEW Discharge Diagnosis: 1. Acute UTI. 2. Atypical chest pain, s/p GIANCARLO. 3. Atrial flutter. RESOLVED, probably precipitated by acute UTI. Condition on Discharge: Fair Activity: Resume your previous activity Lifting: Gradually increase as tolerated Bathing: No limitations Exercise/Sports: Gradually increase as tolerated Weightbearing: Full weightbearing Non-emergency contact: Primary Care Provider Call non-emergency contact if: you have any medication questions Follow-up/Referrals: Shell Santoyo DO [Physician] - (Please call the office and schedule a hospital follow-up appointment for 2 weeks.) Michael Gardiner DO [Primary Care Provider] - Diet: Heart Healthy Addtl Attending Provider Instructions: 1. See your PCP Dr. Michael Gardiner within 5-7 days of hospital discharge for routine follow up visit and to discuss final urine culture (02/23/2025, 10:05am) results as you have an acute UTI and are being started on cefuroxime 250mg PO bid x 6 doses (start date/time, 02/23/2025, 1:10pm; stop date/time, 02/25/2025, 8:00pm). Pending Studies at Discharge: Yes Studies:: 1. See your PCP Dr. Michael Gardiner within 5-7 days of hospital discharge for routine follow up visit and to discuss final urine culture (02/11, 10:05am) results as you have an acute UTI and are being started on cefuroxime 250mg PO bid x 6 doses (start date/time, 02/23/2025, 1:10pm; stop date/time, 02/25/2025, 8:00pm). Stand-Alone Forms: [facility] Present, Smoking Cessation Medications and DC Order Prescriptions: New cefuroxime axetil 250 mg Tablet 250 mg PO BID Qty: 5 0RF Continued carbidopa-levodopa [Sinemet] 25-100 mg tablet 2.5 tab PO TID Rx Instructions: 0500, 1100, 1700 carbidopa-levodopa 25-100 mg tablet extended release 2 tab PO .HS@2200 clonidine HCl 0.1 mg Tablet 0.05 mg PO QAM clonidine HCl 0.1 mg Tablet 0.1 mg PO HS acetaminophen [Tylenol] 325 mg Tablet 650 mg PO Q4H MDD 3 GRAMS APAP/24 HOURS PRN (Reason: Pain) omega-3 fatty acids 1,000 mg Capsule 1,000 mg PO QAM amlodipine 5 mg Tablet 5 mg PO BIDM docusate sodium 100 mg Capsule 100 mg PO QPM gabapentin 300 mg Capsule 300 mg PO QPM furosemide [Lasix] 20 mg Tablet 20 mg PO Q24H PRN (Reason: Edema) nystatin 100,000 unit/gram Powder 1 applic TOPICAL DIRECTED PRN (Reason: ABD FOLD/SKIN EXCORIATION) calcium carbonate-vitamin D3 [Oyster Shell Calcium-Vit D3] 500 mg-5 mcg (200 unit) Tablet 1 tab PO QAM Eliquis 2.5 mg Tablet 2.5 mg PO Q12H nitroglycerin [Nitrostat] 0.4 mg tablet, sublingual 0.4 mg SL .Q5MIN MDD 3 DOSES PRN (Reason: Chest Pain) Qty: 25 0RF Krames/Other Patient Handouts: ED Atrial Flutter Admission Data Admit Date/Time: 02/22/25 23:24 Attending Provider: Eduardo Lehman Admit Provider: Naima Castaneda Primary Care Provider: Michael Gardiner Other Providers: Shell Santoyo Hospital Stay Data Consultations 02/23/25 02:33 Consult Cardiology Routine 02/23/25 07:03 HIM [Consult Health Information Management] Routine Pending Results Patient Have Any Pending Studies at Discharge: Yes Discharge Instructions Given to Patient (Per Discharging Provider) 1. See your PCP Dr. Michael Gardiner within 5-7 days of hospital discharge for routine follow up visit and to discuss final urine culture (02/23/2025, 10:05am) results as you have an acute UTI and are being started on cefuroxime 250mg PO bid x 6 doses (start date/time, 02/23/2025, 1:10pm; stop date/time, 02/25/2025, 8:00pm). Total Time Total Time Spent Total Time Spent (In Minutes): 35 minutes. Of this time period, 19 minutes were spent in coordinating patient's discharge. Coding Level of Care Code 25213 INP/OBS DISCH >30 MIN Diagnoses Chest pain R07.2 Chest pain type: precordial pain Atrial flutter I48.92
[2025-02-23] MEDS ORDERED: DOCUSATE SODIUM 100 MG CAP PO SCH (21:00)
[2025-02-23] MEDS ORDERED: GABAPENTIN 300 MG CAP PO SCH (21:00)
[2025-02-23] MEDS ORDERED: CARBIDOPA/LEVODOPA 25/100MG EXT REL TAB PO SCH (22:00)
--- NOTE | 2025-02-24 10:26 | Electrocardiogram Report ---
Test Reason : Blood Pressure : */* mmHG Vent. Rate : 82 BPM Atrial Rate : 82 BPM P-R Int : 182 ms QRS Dur : 78 ms QT Int : 364 ms P-R-T Axes : 33 -23 40 degrees QTcB Int : 425 ms Sinus rhythm with Premature supraventricular complexes Minimal voltage criteria for LVH, may be normal variant ( R in aVL ) Septal infarct , age undetermined Abnormal ECG When compared with ECG of 03-Apr-2021 07:21, Premature supraventricular complexes are now Present Nonspecific T wave abnormality has replaced inverted T waves in Inferior leads Confirmed by Manny [place] ([id number]) on 02/24/2025 10:26:10 AM Referred By: Confirmed By: Manny [place]
--- NOTE | 2025-02-24 10:32 | Electrocardiogram Report ---
Test Reason : Blood Pressure : */* mmHG Vent. Rate : 93 BPM Atrial Rate : 330 BPM P-R Int : * ms QRS Dur : 82 ms QT Int : 342 ms P-R-T Axes : * -20 82 degrees QTcB Int : 425 ms Atrial flutter with variable A-V block Possible Anterior infarct (cited on or before 22-Feb-2025) Abnormal ECG When compared with ECG of 22-Feb-2025 17:09, (unconfirmed) Atrial flutter has replaced Sinus rhythm Confirmed by Manny [place] ([id number]) on 02/24/2025 10:32:23 AM Referred By: [facility] Confirmed By: Manny [place]
--- NOTE | 2025-02-24 10:33 | Electrocardiogram Report ---
Test Reason : Blood Pressure : */* mmHG Vent. Rate : 75 BPM Atrial Rate : 75 BPM P-R Int : 182 ms QRS Dur : 90 ms QT Int : 374 ms P-R-T Axes : 61 -25 42 degrees QTcB Int : 417 ms Normal sinus rhythm Poor R wave progression, consider anterior NC vs. lead placement vs. LVH Abnormal ECG When compared with ECG of 22-Feb-2025 20:40, (unconfirmed) Sinus rhythm has replaced Atrial flutter Nonspecific T wave abnormality no longer evident in Lateral leads Confirmed by Manny [place] ([id number]) on 02/24/2025 10:32:44 AM Referred By: Kerrie Avalos [facility] Confirmed By: Manny [place]
== END 2025-02-23 16:00 | disposition home health service (06) ==
LOC: 2W 17:02 → ED 17:02 → SUATTDRO 23:24 → 2W 02-23 01:59
DX: Z88.8 Allergy status to other drugs, medicaments and biological substances; Z79.899 Other long term (current) drug therapy; G20.A1 Parkinson's disease without dyskinesia, without mention of fluctuations; Z88.5 Allergy status to narcotic agent; I48.92 Unspecified atrial flutter; R60.9 Edema, unspecified; Z79.01 Long term (current) use of anticoagulants; Z87.891 Personal history of nicotine dependence; R07.89 Other chest pain; N39.0 Urinary tract infection, site not specified; I16.0 Hypertensive urgency

== ENCOUNTER 2025-04-28 08:34 | Observation (INO) ==
--- NOTE | 2025-04-28 08:53 | Emergency Department Note ---
Impression & Plan Pneumonia, Hypoxia, Elevated troponin I level, Urinary tract infection ED Provider Note NAME: MIKO BUSH AGE: 89 SEX: F : 1935 ARRIVES VIA: Ambulance INFORMANT: Patient, EMS ED PROVIDER(S): Manny Curtis DO CHIEF COMPLAINT: Altered mental status HPI: The patient is an 89-year-old female who presented to the emergency department by ambulance. The patient reportedly had an altered mental status. The patient was hypotensive and hypoxic prior to arrival. The patient herself denies any complaints. She denies having any abdominal pain or back pain. She denies having any dysuria or frequency. The patient does not have any reported falls. The patient does have a history of atrial fibrillation and does take oral anticoagulants. The patient was given 500 mL of normal saline prior to arrival. ROS: See above HPI for pertinent positives & negatives. A total of 10 systems reviewed and were otherwise negative. PAST MEDICAL HISTORY: See Below PAST SURGICAL HISTORY: See Below FAMILY HISTORY: See Below SOCIAL HISTORY: See Below HOME MEDICATIONS: See Below ALLERGIES: See Below VITALS: See Below PHYSICAL EXAMINATION: GENERAL: The patient is awake and alert. The patient is slow to answer questions but answers appropriately. EYES: The conjunctivae are clear. The pupils are round and reactive. EARS, NOSE, MOUTH AND THROAT: The nose is without any evidence of any deformity. Mucous membranes are dry. NECK: The neck is nontender and supple. RESPIRATORY: Diminished breath sounds are noted in the left lung field with rales in the right lung field. There is mild tachypnea noted. CARDIOVASCULAR: Irregular heart sounds were noted to auscultation. There is no definite murmur. GASTROINTESTINAL: The abdomen is soft. Abdomen is nontender. MUSCULOSKELETAL/EXTREMITIES: There is no evidence of gross deformity full range of motion is noted in the hips and shoulders. SKIN: There is no obvious evidence of any rash. There are no petechiae, pallor or cyanosis noted. NEUROLOGIC: Patient is awake alert and oriented to person place and situation. MEDICAL DECISION MAKING: The patient is an 89-year-old female who presented to the emergency department for an evaluation of altered mental status. The patient has abnormal lung sounds. She was also hypoxic. Chest x-ray appears to be consistent with pneumonia. She was treated with empiric antibiotics. I discussed the patient's laboratory and radiographic studies with her. Given her findings I discussed her condition with the on-call [facility] hospitalist. They have agreed to evaluate the patient in the emergency department for further management and disposition. The patient was treated with IV fluids. Her blood pressure did improve while in the emergency department. She was also treated with supplemental oxygen. Triage Nursing notes reviewed. Prior medical records reviewed Vital Signs: reviewed and remarkable for initial hypotension and hypoxia. Differential diagnosis: Infection, hypoglycemia, electrolyte abnormalities, overdose, toxicologic, cardiac sources, intracerebral event, neurologic, trauma, as well as other pathologies. ER treatment provided: See below Diagnostics interpreted by me: ECG: EKG was obtained in the emergency department. My interpretation is atrial fibrillation at 107 bpm. Fusion beats were noted. Nonspecific ST abnormalities were also appreciated. This was compared to a tracing from February 22, 2025. Sinus rhythm was noted on the previous tracing. Prehospital EKG was reviewed. Interpretation is sinus rhythm with ectopic atrial beats noted at 81 bpm. The QRST morphology reveals increasing ST depression compared to the tracing obtained in the emergency department. Cardiac Monitoring: An order was placed for continuous cardiac monitoring. The monitor shows a rate of 97 bpm with sinus rhythm. Laboratory studies: As stated above and show below. Imaging studies: See below. Radiographic imaging was reviewed by myself Consultation(s): I discussed this case with Dr. Etienne who is on-call for the [facility] Hospitalist group. ED COURSE: Procedures: none Critical Care: I have personally spent greater than 40 minutes of critical care time in the direct management of this patient. This includes bedside care, interpretation of diagnostic studies, and testing, discussion with consultants, patient, and family members, and other required patient management activities. This 40 minutes is in excess of all separately billable procedures. Past Med/Surg History Problem List (Updated 04/28/25 @ 11:18 by Manny Curtis DO) Urinary tract infection (Acute) Elevated troponin I level (Acute) Hypoxia (Acute) Pneumonia (Acute) HTN (hypertension) (Acute) Lab test negative for COVID-19 virus (Acute) T wave inversion in EKG (Acute) Bradycardia on ECG Labile blood pressure Syncope Rib fracture Renal cyst, right Cyst of kidney, acquired (Acute) Diverticulosis (Acute) Empty sella syndrome (Acute) Fatty liver disease, nonalcoholic (Acute) Hyperactivity of bladder (Acute) Hypercholesterolemia (Acute) Hyponatremia (Acute) Insomnia (Acute) Labile hypertension (Acute) Multiple thyroid nodules (Acute) Osteopenia (Acute) Parkinson's disease (Acute) Vitamin D deficiency (Acute) Hypertension (Chronic) H/O non-ST elevation myocardial infarction (NSTEMI) Medical History (Updated 04/28/25 @ 11:18 by Manny Curtis DO) Atrial flutter, paroxysmal Chest pain Atrial flutter Chest pain Vertigo Hypertensive urgency Surgical History History of varicose vein ligation S/P rotator cuff repair S/P hysterectomy S/P cataract surgery S/P lumpectomy of breast S/P appendectomy Family History Mother Myocardial infarction Diabetes Sister Breast cancer Father Stroke Denies family history of Ovarian cancer Prostate cancer Congenital kidney disease Colorectal cancer Social History Smoking Status: Former smoker Tobacco Type: Cigarettes Age Started Using Tobacco: 19; Age Quit Using Tobacco: 41; packs per day: 1.5; Cigarettes Per Day: 30; Second Hand Exposure: No; Do You Dip or Chew Tobacco: No; Hx Alcohol Use: Yes (10 years ago) Alcohol type: beer and wine Hx Substance Use: No Preferred Language: Romanian Communication Ability: Effective Hearing Ability: Normal 3Rd Mate Required: No Beliefs That Will Affect Care: None marital status: Current Living Situation: Care Home Current Living Situation Comment: lives in assisted living facility current occupational status: retired current occupation: Worked in a [employer] in [place] Feels Safe at Home: Yes Safety Concerns Comment: Currently packing up house, boxes are everywhere, worried about falling Childhood Exposure to Second-Hand Smoke: No Diet: regular caffeine: Yes during the past year weight has: remained stable Dental Care, Regularly: Yes Physical Activity Frequency: Does not Exercise Seatbelt Use: always Sunscreen Use: No Assistive Devices: Wheelchair Allergies Allergies Allergy/AdvReac Type Severity Reaction Status Date / Time adhesive tape Allergy Unknown ON [facility] Verified 02/22/25 18:22 MED LIST droxidopa Allergy Unknown ON [facility] Verified 02/22/25 18:22 MED LIST enalapril Allergy Unknown ON [facility] Verified 02/22/25 18:22 MED LIST amantadine AdvReac Severe could not Verified 02/22/25 18:22 wake up lisinopril AdvReac Severe blood Verified 02/22/25 18:22 pressure bottoms out morphine AdvReac Severe B/P Verified 02/22/25 18:22 "bottoms out" alendronate sodium AdvReac Unknown can't Verified 02/22/25 18:22 [From Fosamax] remember hydralazine AdvReac Unknown can't Verified 02/22/25 18:22 remember Home Meds Home Medications Medication Instructions Recorded Confirmed carbidopa 25 mg-levodopa 100 mg 2.5 tab PO TID 02/24/20 04/28/25 tablet (Sinemet) carbidopa ER 25 mg-levodopa 100 mg 2 tab PO .HS@2200 02/29/20 04/28/25 tablet,extended release acetaminophen 325 mg tablet 650 mg PO Q4H PRN Pain 02/22/25 04/28/25 (Tylenol) amlodipine 5 mg tablet 5 mg PO BIDM 02/22/25 04/28/25 apixaban 2.5 mg tablet (Eliquis) 2.5 mg PO Q12H 02/22/25 04/28/25 calcium 500 mg (as 1 tab PO QAM 02/22/25 04/28/25 carbonate)-vitamin D3 5 mcg (200 unit) tablet (Oyster Shell Calcium-Vitamin D3) clonidine HCl 0.1 mg tablet 0.05 mg PO QAM 02/22/25 04/28/25 clonidine HCl 0.1 mg tablet 0.1 mg PO HS 02/22/25 04/28/25 docusate sodium 100 mg capsule 100 mg PO QPM 02/22/25 04/28/25 furosemide 20 mg tablet (Lasix) 20 mg PO Q24H PRN Edema 02/22/25 04/28/25 gabapentin 300 mg capsule 300 mg PO QPM 02/22/25 04/28/25 nystatin 100,000 unit/gram topical 1 applic topical DIRECTED PRN 02/22/25 04/28/25 powder ABD FOLD/SKIN EXCORIATION omega-3 fatty acids 1,000 mg 1,000 mg PO QAM 02/22/25 04/28/25 capsule polyethylene glycol 3350 17 17 g PO QAM 04/28/25 04/28/25 gram/dose oral powder Previous Rx's Medication Instructions Recorded nitroglycerin 0.4 mg sublingual 0.4 mg sublingual .Q5MIN PRN Chest 02/23/25 tablet (Nitrostat) Pain #25 tabs Results & Data (ED) Vital Signs Vital Signs - 24 hr 04/28/25 08:40 04/28/25 08:44 04/28/25 08:45 Temperature 37.1 C Temperature Source Oral Pulse Rate 115 H 111 H 115 H Pulse Rate [Apical] Pulse Rate from SpO2 Sensor Pulse Rhythm Irregular Pulse Rhythm [Apical] Respiratory Rate 17 24 Respiratory Effort / Characteristics Non-Labored Spontaneous Respiratory Depth Normal Respiratory Pattern Regular Tachypnea Blood Pressure 83/59 L 83/59 L Blood Pressure [Left Arm] Blood Pressure Mean 67 67 Blood Pressure Mean [Left Arm] Blood Pressure Position Semi-fowlers Blood Pressure Position [Left Arm] Pulse Oximetry 88 L 88 L Oxygen Delivery Method Room Air Room Air Oxygen Flow Rate Sepsis New/Unexplained Change in Mental Status No Sepsis Action Taken by Nursing Physician Notified Oxygen Flow Rate - Titration Pulse Oximetry Post Tiitration 04/28/25 08:48 04/28/25 08:50 04/28/25 08:50 Temperature Temperature Source Pulse Rate 116 H 117 H Pulse Rate [Apical] Pulse Rate from SpO2 Sensor 125 H Pulse Rhythm Irregular Pulse Rhythm [Apical] Respiratory Rate 17 24 Respiratory Effort / Characteristics Respiratory Depth Respiratory Pattern Blood Pressure 77/63 L Blood Pressure [Left Arm] Blood Pressure Mean 71 Blood Pressure Mean [Left Arm] Blood Pressure Position Blood Pressure Position [Left Arm] Pulse Oximetry 90 88 L 95 Oxygen Delivery Method Nasal Cannula Nasal Cannula Nasal Cannula Oxygen Flow Rate 2 0 2 Sepsis New/Unexplained Change in Mental Status Sepsis Action Taken by Nursing Oxygen Flow Rate - Titration 2 Pulse Oximetry Post Tiitration 95 04/28/25 09:00 04/28/25 09:00 04/28/25 09:15 Temperature Temperature Source Pulse Rate 100 H 114 H Pulse Rate [Apical] 117 H Pulse Rate from SpO2 Sensor 113 H 116 H Pulse Rhythm Pulse Rhythm [Apical] Irregular Respiratory Rate 30 H 26 H 18 Respiratory Effort / Characteristics Non-Labored Spontaneous Respiratory Depth Normal Respiratory Pattern Blood Pressure 94/72 L 97/66 L Blood Pressure [Left Arm] 94/72 L Blood Pressure Mean 79 76 Blood Pressure Mean [Left Arm] 79 Blood Pressure Position Blood Pressure Position [Left Arm] Semi-fowlers Pulse Oximetry 94 94 93 Oxygen Delivery Method Nasal Cannula Nasal Cannula Nasal Cannula Oxygen Flow Rate 2 2 2 Sepsis New/Unexplained Change in Mental Status Sepsis Action Taken by Nursing Oxygen Flow Rate - Titration Pulse Oximetry Post Tiitration 04/28/25 09:30 04/28/25 09:45 04/28/25 09:45 Temperature Temperature Source Pulse Rate 121 H 103 H 103 H Pulse Rate [Apical] Pulse Rate from SpO2 Sensor 118 H 95 H Pulse Rhythm Pulse Rhythm [Apical] Respiratory Rate 25 H 14 17 Respiratory Effort / Characteristics Respiratory Depth Respiratory Pattern Blood Pressure 102/69 104/62 104/62 Blood Pressure [Left Arm] Blood Pressure Mean 71 76 72 Blood Pressure Mean [Left Arm] Blood Pressure Position Blood Pressure Position [Left Arm] Pulse Oximetry 96 96 95 Oxygen Delivery Method Nasal Cannula Nasal Cannula Nasal Cannula Oxygen Flow Rate 2 2 2 Sepsis New/Unexplained Change in Mental Status Sepsis Action Taken by Nursing Oxygen Flow Rate - Titration Pulse Oximetry Post Tiitration 04/28/25 10:00 04/28/25 10:56 Temperature 36.6 C Temperature Source Oral Pulse Rate 97 H Pulse Rate [Apical] Pulse Rate from SpO2 Sensor 105 H Pulse Rhythm Pulse Rhythm [Apical] Respiratory Rate 16 Respiratory Effort / Characteristics Respiratory Depth Respiratory Pattern Blood Pressure 104/72 Blood Pressure [Left Arm] Blood Pressure Mean 82 Blood Pressure Mean [Left Arm] Blood Pressure Position Blood Pressure Position [Left Arm] Pulse Oximetry 95 Oxygen Delivery Method Nasal Cannula Oxygen Flow Rate 2 Sepsis New/Unexplained Change in Mental Status Sepsis Action Taken by Nursing Oxygen Flow Rate - Titration Pulse Oximetry Post Tiitration Home Medications Current Medication List: was personally reviewed by me Laboratory Data Attestation: I reviewed the patient's lab results. 04/28/25 09:00 04/28/25 09:00 Lab Results 04/28/25 04/28/25 04/28/25 Range/Units 09:00 09:02 09:25 WBC 10.17 (4.8-10.8) K/ul RBC 4.54 (4.20-5.40) M/uL Hgb 12.8 (12.0-16.0) g/dl POC Hgb 13.3 (12.0-16.0) g/dl Hct 39.5 (37.0-47.0) % POC Hct 39 (37-47) % MCV 87.0 (80.0-100.0) fL MCH 28.2 (25.0-34.0) pg MCHC 32.4 (32.0-36.0) g/dL RDW Std Deviation 46.6 H (36.4-46.3) fL RDW Coeff of Radha 14.6 H (11.5-14.5) % Plt Count 185 (130-400) K/uL MPV 9.8 (9.4-12.4) fL Immature Gran % (Auto) 0.7 % Neut % (Auto) 87.1 % Lymph % (Auto) 5.2 % Stone % (Auto) 6.6 % Eos % (Auto) 0.1 % Baso % (Auto) 0.3 % Neut # (Auto) 8.86 H (1.40-6.50) K/uL Lymph # (Auto) 0.53 L (1.20-3.40) K/uL Stone # (Auto) 0.67 H (0.11-0.59) K/uL Eos # (Auto) 0.01 (0.00-0.50) K/uL Baso # (Auto) 0.03 (0.00-0.20) K/uL Immature Gran # (Auto) 0.07 (0.01-0.20) K/uL PT 12.1 H (9.0-12.0) Seconds INR 1.1 (0.9-1.1) APTT 30 (21-31) Seconds PTT Ratio 1.1 VBG pH 7.39 (7.36-7.41) VBG pCO2 47 (38-50) mmHg VBG pO2 37 mmHg VBG HCO3 29 mmol/L VBG O2 Saturation 62.7 % VBG Base Excess 2.8 mEq/L POC Sodium 138 (135-144) mmol/L Sodium 137 (136-145) mmol/L POC Potassium 3.4 (3.3-5.0) mmol/L Potassium 3.4 L (3.5-5.1) mmol/L POC Chloride 101 (101-112) mmol/L Chloride 102 (98-107) mmol/L Carbon Dioxide 27 (21-32) mmol/L POC Total CO2 23 L (24-31) mmol/L Anion Gap 8 (3-11) POC Anion Gap 19.0 (16-25) mmol/L POC BUN 18 (7-18) mg/dl BUN 18 (6-23) mg/dl Creatinine 0.87 (0.6-1.2) mg/dl POC Creatinine 1.0 (0.6-1.3) mg/dl Est Cr Clr Drug Dosing 41.3 ml/min eGFR 63.65 BUN/Creatinine Ratio 20.7 H (10-20) Glucose 116 H (70-99(Fasting)) mg/dl POC Glucose (other) 117 H (70-99) mg/dl Lactate 1.5 (0.4-2.0) mmol/L Calcium 8.8 (8.6-10.3) mg/dl POC Ioniz Calcium Diaz 1.12 (1.12-1.32) mmol/l Magnesium 1.7 (1.7-2.4) mg/dl Total Bilirubin 0.7 (0.2-1.0) mg/dl Direct Bilirubin 0.1 (0-0.2) mg/dl AST 11 L (13-39) U/L ALT < 3 L (7-52) U/L Alkaline Phosphatase 64 (34-104) U/L Troponin I High Sens 39.9 H (0-14) pg/ml Total Protein 6.2 (6.0-8.3) gm/dl Albumin 3.4 (3.4-5.0) gm/dl Procalcitonin 8.28 H (0-0.5) ng/ml Urine Color Yellow Urine Appearance Cloudy A (Clear) Urine pH 7.0 (4.5-7.5) Ur Specific [place] 1.013 (1.000-1.030) Urine Protein 1+ H (Negative) Urine Glucose (UA) Negative (Negative) Urine Ketones Trace H (Negative) Urine Blood 2+ H (Negative) Urine Nitrite Positive A (Negative) Urine Bilirubin Negative (Negative) Urine Urobilinogen Negative (Negative) Ur Leukocyte Esterase 2+ H (Negative) Urine WBC (Auto) >50 H (0-5) /hpf Urine RBC (Auto) 11-20 H (0-2) /hpf U Hyaline Cast (Auto) 3-5 H (0-2) /lpf U Epithel Cells (Auto) 0-2 (0-2) /hpf Urine Bacteria (Auto) 4+ H (None Seen) Urine Comment SARS-CoV-2 (PCR) NEGATIVE (Negative) Influenza Type A (PCR) Negative (Neg) Influenza Type B (PCR) Negative (Neg) RSV (RT-PCR) Negative (Neg) Administered Medications Discontinued Medications Sodium Chloride (Nss) 1,000 mls @ 999 mls/hr IV .Q1H1M ONE Stop: 04/28/25 09:48 Last Infusion: 04/28/25 10:06 Dose: Infused Documented By: Admin: 04/28/25 09:00 Dose: 999 mls/hr Documented By: DAWN Ceftriaxone Sodium (Rocephin) 2,000 mg in 50 mls @ 100 mls/hr IV NOW STA Stop: 04/28/25 09:22 Last Infusion: 04/28/25 10:06 Dose: Infused Documented By: Admin: 04/28/25 09:18 Dose: 100 mls/hr Documented By: DAWN Imaging Data Attestation: I personally reviewed and interpreted this imaging study as follows: My Impression: 1 view chest x-ray was obtained in the emergency department. My interpretation is right-sided infiltrate, final report below. Radiologist's Impression: Chest X-Ray 04/28/25 08:48 XR chest 1V portable CLINICAL HISTORY: Sepsis COMPARISON STUDY: 02/22/2025 FINDINGS: Stable cardiomegaly without pulmonary vascular congestion. Stable ectasia of the thoracic aorta. Inspiration is shallow. There are faint bandlike and reticular opacities at the right upper lung. No other consolidation or pleural effusion. No pneumothorax. IMPRESSION: Possible early pneumonia at the right upper lung. ACT 112: Negative or not required by law. Electronically signed by: Dez Brush M.D. 04/28/2025 9:08 AM Discharge Plan Visit Data Chief Complaint: Lethargic ED Provider: Manny Curtis Discharge Problem: Pneumonia, Hypoxia, Elevated troponin I level, Urinary tract infection Patient Disposition: Being Evaluated by Hospitalist Condition: Fair Forms Stand Alone Forms: My [facility] Prescriptions Prescriptions: No Action carbidopa-levodopa [Sinemet] 25-100 mg tablet 2.5 tab PO TID Rx Instructions: 0500, 1100, 1700 carbidopa-levodopa 25-100 mg tablet extended release 2 tab PO .HS@2200 clonidine HCl 0.1 mg Tablet 0.05 mg PO QAM clonidine HCl 0.1 mg Tablet 0.1 mg PO HS acetaminophen [Tylenol] 325 mg Tablet 650 mg PO Q4H MDD 3 GRAMS APAP/24 HOURS PRN (Reason: Pain) omega-3 fatty acids 1,000 mg Capsule 1,000 mg PO QAM amlodipine 5 mg Tablet 5 mg PO BIDM docusate sodium 100 mg Capsule 100 mg PO QPM gabapentin 300 mg Capsule 300 mg PO QPM furosemide [Lasix] 20 mg Tablet 20 mg PO Q24H PRN (Reason: Edema) nystatin 100,000 unit/gram Powder 1 applic TOPICAL DIRECTED PRN (Reason: ABD FOLD/SKIN EXCORIATION) calcium carbonate-vitamin D3 [Oyster Shell Calcium-Vit D3] 500 mg-5 mcg (200 unit) Tablet 1 tab PO QAM Eliquis 2.5 mg Tablet 2.5 mg PO Q12H nitroglycerin [Nitrostat] 0.4 mg tablet, sublingual 0.4 mg SL .Q5MIN MDD 3 DOSES PRN (Reason: Chest Pain) Qty: 25 0RF polyethylene glycol 3350 17 gram/dose Powder 17 g PO QAM Referrals Referrals: Michael Gardiner DO [Primary Care Provider] -
[2025-04-28] MEDS: SODIUM CHLORIDE 0.9% 1,000 ML IV ONE (09:00)
--- NOTE | 2025-04-28 09:09 | XRay Report ---
XR chest 1V portable CLINICAL HISTORY: Sepsis COMPARISON STUDY: 02/22/2025 FINDINGS: Stable cardiomegaly without pulmonary vascular congestion. Stable ectasia of the thoracic a reno. Inspiration is shallow. There are faint bandlike and reticular opacities at the right upper татьяна g. No other consolidation or pleural effusion. No pneumothorax. IMPRESSION: Possible early pneumonia at the right upper lung. ACT 112: Negative or not required by law. Electronically signed by: Dez Brush M.D. 04/28/2025 9:08 AM
[2025-04-28] MEDS: cefTRIAXone SODIUM 2,000 MG/50 ML BAG IV STA (09:18)
[2025-04-28 09:19] LABS: Base Excess VBG 2.8 mEq/L; HCO3 VBG 29 mmol/L; Oxygen Saturation VBG 62.7 %; PCO2 VBG 47 mmHg (38-50); PO2 VBG 37 mmHg; pH VBG 7.39 (7.36-7.41)
[2025-04-28 09:24] LABS: Hematocrit (blood only) 39.5 % (37.0-47.0); Hemoglobin 12.8 g/dl (12.0-16.0); Immature Granulocytes # (auto) 0.07 K/uL (0.01-0.20); Immature Granulocytes % (auto) 0.7 %; Mean Corpuscular Hemoglobin 28.2 pg (25.0-34.0); Mean Corpuscular Volume 87.0 fL (80.0-100.0); Platelet Count 185 K/uL (130-400); RDW Standard Deviation 46.6 fL (36.4-46.3); Red Blood Count 4.54 M/uL (4.20-5.40); White Blood Count 10.17 K/ul (4.8-10.8)
[2025-04-28 09:40] LABS: Anion Gap 8 (3-11); Blood Urea Nitrogen 18 mg/dl (6-23); Calcium 8.8 mg/dl (8.6-10.3); Carbon Dioxide 27 mmol/L (21-32); Chloride 102 mmol/L (98-107); Creatinine Clr Calc Pharmacy 41.3 ml/min; Glucose 116 mg/dl (70-99(Fasting)); Potassium 3.4 mmol/L (3.5-5.1); Sodium 137 mmol/L (136-145)
[2025-04-28 09:41] LABS: Alanine Aminotransferase < 3 U/L (7-52); Albumin Level 3.4 gm/dl (3.4-5.0); Alkaline Phosphatase 64 U/L (34-104); Bilirubin,Total 0.7 mg/dl (0.2-1.0); Magnesium 1.7 mg/dl (1.7-2.4); Total Protein 6.2 gm/dl (6.0-8.3)
[2025-04-28 09:53] LABS: INR 1.1 (0.9-1.1); Partial Thromboplastin Time 30 Seconds (21-31); Prothrombin Time 12.1 Seconds (9.0-12.0)
[2025-04-28 10:04] LABS: Influenza A virus by PCR Negative (Neg); Influenza B virus by PCR Negative (Neg); SARS CoV2 RNA(COVID-19) Ceph NEGATIVE (Negative)
[2025-04-28 10:25] LABS: Appearance Urine Cloudy (Clear); Bacteria Urine Automated 4+ (None Seen); Epithelial Cell Urine Auto 0-2 /hpf (0-2); Glucose Urine UA Negative (Negative); WBC Urine Automated >50 /hpf (0-5)
--- NOTE | 2025-04-28 11:57 | History & Physical Report ---
Date of Service April 28, 2025 Assessment & Plan (1) Metabolic encephalopathy: (2) Urinary tract infection: (3) Hypoxia: (4) Elevated troponin I level: (5) Pneumonia: (6) Parkinson's disease: Plan Stephie is an 89yo lady with PMH of Parkinson Disease on carbidopa-levodopa, Atrial fibrillation on eliquis, and HTN who presented to the ED this morning due to not feeling well and a little weak. She is currently being managed for suspected UTI associated metabolic encephalopathy. Notable Labs/Imaging: CXR 04/28: IMPRESSION: Possible early pneumonia at the right upper lung. UA 04/28: cloudy, 2+ blood, 2+ leukocyte esterase, 4+ bacteria procalcitonin: 8.28 #Metabolic encephalopathy #Sepsis #Complicated UTI -continue ceftriaxone 2g IV daily for tentatively 7 days; today is day 08/20 -CMP tomorrow, will follow -CBC tomorrow, will follow -blood and urine cultures pending #Atrial flutter, paroxysmal #Hypoxia secondary to possible pneumonia vs Atrial flutter RVR-induced fluid overload asymptomatic, currently rate controlled -on 2L NC, saturating 95% -continue NC, keeping sats above 90% -consider trial of diuresis -check BNP #Elevated troponin I level likely secondary to demand ischemia -first level 39.9, repeat 40.6 -repeat in AM #HTN -amlodipine held d/t relative hypotension -continue clonidine at reduced dose to avoid rebound tachycardia #Parkinson Disease -continue at home carbidopa-levodopa VTE prophylaxis: Eliquis Dispo: med-tele FEN/GI: Heart Healthy Diet Code Status: Conditional History of Present Illness Primary Care Provider: Michael Gardiner, CC: "This morning I didn't feel like myself." HPI: Stephie is an 89yo lady with PMH of Parkinson Disease on carbidopa-levodopa, Atrial fibrillation on eliquis, and HTN who presented to the ED this morning due to not feeling well and a little weak. Upon arrival in the ED, she was noted to be hypotensive and hypoxic and was given a 1L bolus of NS which improved her blood pressure and started on 2L of nasal cannula. CXR is consistent for pneumonia. She was started on 2g of ceftriaxone empirically for pneumonia. Inpatient service was contacted for admission. At bedside, she is not complaining of any symptoms. She stated this morning she did not feel like herself and was transported here. The pt noted that the last couple days she has been experiencing some burning and increased urgency to urinate but not today. She has not urinated today and needed to be straight catheterized for the UA which does show a UTI. She denies fever but endorses chills. She has a history of chronic constipation in her medical history. She denies any fevers, SOB, CP, palpitations/fluttering/skipped beats, lightheadedness, dizziness, N/V, diarrhea. Allergies Allergy/AdvReac Type Severity Reaction Status Date / Time adhesive tape Allergy Unknown ON [facility] Verified 02/22/25 18:22 MED LIST droxidopa Allergy Unknown ON [facility] Verified 02/22/25 18:22 MED LIST enalapril Allergy Unknown ON [facility] Verified 02/22/25 18:22 MED LIST amantadine AdvReac Severe could not Verified 02/22/25 18:22 wake up lisinopril AdvReac Severe blood Verified 02/22/25 18:22 pressure bottoms out morphine AdvReac Severe B/P Verified 02/22/25 18:22 "bottoms out" alendronate sodium AdvReac Unknown can't Verified 02/22/25 18:22 [From Fosamax] remember hydralazine AdvReac Unknown can't Verified 02/22/25 18:22 remember Home Medications Medication Instructions Recorded Confirmed Type carbidopa 25 mg-levodopa 100 mg 2.5 tab PO TID 02/24/20 04/28/25 History tablet (Sinemet) carbidopa ER 25 mg-levodopa 100 mg 2 tab PO .HS@2200 02/29/20 04/28/25 History tablet,extended release acetaminophen 325 mg tablet 650 mg PO Q4H PRN Pain 02/22/25 04/28/25 History (Tylenol) amlodipine 5 mg tablet 5 mg PO BIDM 02/22/25 04/28/25 History apixaban 2.5 mg tablet (Eliquis) 2.5 mg PO Q12H 02/22/25 04/28/25 History calcium 500 mg (as 1 tab PO QAM 02/22/25 04/28/25 History carbonate)-vitamin D3 5 mcg (200 unit) tablet (Oyster Shell Calcium-Vitamin D3) clonidine HCl 0.1 mg tablet 0.05 mg PO QAM 02/22/25 04/28/25 History clonidine HCl 0.1 mg tablet 0.1 mg PO HS 02/22/25 04/28/25 History docusate sodium 100 mg capsule 100 mg PO QPM 02/22/25 04/28/25 History furosemide 20 mg tablet (Lasix) 20 mg PO Q24H PRN Edema 02/22/25 04/28/25 History gabapentin 300 mg capsule 300 mg PO QPM 02/22/25 04/28/25 History nystatin 100,000 unit/gram topical 1 applic topical DIRECTED PRN 02/22/25 04/28/25 History powder ABD FOLD/SKIN EXCORIATION omega-3 fatty acids 1,000 mg 1,000 mg PO QAM 02/22/25 04/28/25 History capsule nitroglycerin 0.4 mg sublingual 0.4 mg sublingual .Q5MIN PRN Chest 02/23/25 04/28/25 Rx tablet (Nitrostat) Pain #25 tabs polyethylene glycol 3350 17 17 g PO QAM 04/28/25 04/28/25 History gram/dose oral powder Past Med/Surg History Problem List (Updated 04/28/25 @ 16:54 by Background Daemon) Metabolic encephalopathy Urinary tract infection (Acute) Elevated troponin I level (Acute) Hypoxia (Acute) Pneumonia (Acute) HTN (hypertension) (Acute) Lab test negative for COVID-19 virus (Acute) T wave inversion in EKG (Acute) Bradycardia on ECG Labile blood pressure Syncope Rib fracture Renal cyst, right Cyst of kidney, acquired (Acute) Diverticulosis (Acute) Empty sella syndrome (Acute) Fatty liver disease, nonalcoholic (Acute) Hyperactivity of bladder (Acute) Hypercholesterolemia (Acute) Hyponatremia (Acute) Insomnia (Acute) Labile hypertension (Acute) Multiple thyroid nodules (Acute) Osteopenia (Acute) Parkinson's disease (Acute) Vitamin D deficiency (Acute) Hypertension (Chronic) H/O non-ST elevation myocardial infarction (NSTEMI) Medical History (Updated 04/28/25 @ 16:54 by Background Daemon) Atrial flutter, paroxysmal Chest pain Atrial flutter Chest pain Vertigo Hypertensive urgency Surgical History History of varicose vein ligation S/P rotator cuff repair S/P hysterectomy S/P cataract surgery S/P lumpectomy of breast S/P appendectomy Family History Mother Myocardial infarction Diabetes Sister Breast cancer Father Stroke Denies family history of Ovarian cancer Prostate cancer Congenital kidney disease Colorectal cancer Social History Smoking Status: Former smoker Tobacco Type: Cigarettes Age Started Using Tobacco: 19; Age Quit Using Tobacco: 41; packs per day: 1.5; Cigarettes Per Day: 30; Smoking End Date: 41 years old; Second Hand Exposure: No; Do You Dip or Chew Tobacco: No; Tobacco Cessation Education Requested by Patient: No Hx Alcohol Use: No Hx Substance Use: No Preferred Language: Stateless Communication Ability: Effective Hearing Ability: Normal Coastal Tug Mate Required: No Beliefs That Will Affect Care: None marital status: Current Living Situation: Shelter Current Living Situation Comment: Jerry current occupational status: retired current occupation: Worked in a [employer] in [place] Other Information That Helps Us Care for You: No Feels Safe at Home: Yes Safety Concerns: Feels Safe At This Time Safety Concerns Comment: Currently packing up house, boxes are everywhere, worried about falling Childhood Exposure to Second-Hand Smoke: No Diet: regular caffeine: Yes during the past year weight has: remained stable Dental Care, Regularly: Yes Physical Activity Frequency: Does not Exercise Seatbelt Use: always Sunscreen Use: No Assistive Devices: Wheelchair Review of Systems Review of Systems: per HPI Physical Exam Physical Exam: GA: well-groomed, no apparent distress HEENT: sclera anicteric, EOMI CVS: S1 and S2 heard, no murmurs, rubs, or gallops, Pulse: regular rate and irregular rhythm, 2+ B/L RESP: crackles noted over right lung base ABD: nontender, nondistended, normoactive bowel sounds SKIN: no rashes noted NEURO: no focal deficits noted Results & Data Results & Data Vital Signs (Past 12 Hours) Vital Signs Temp Pulse Pulse Resp BP BP Pulse Ox 04/28/25 11:20 110 H 20 107/78 95 04/28/25 10:56 36.6 C 04/28/25 10:00 97 H 16 104/72 95 04/28/25 09:45 103 H 17 104/62 95 04/28/25 09:45 103 H 14 104/62 96 04/28/25 09:30 121 H 25 H 102/69 96 04/28/25 09:15 114 H 18 97/66 L 93 04/28/25 09:00 100 H 26 H 94/72 L 94 04/28/25 09:00 117 H 30 H 94/72 L 94 04/28/25 08:50 117 H 24 95 04/28/25 08:50 88 L 04/28/25 08:48 116 H 17 77/63 L 90 04/28/25 08:45 37.1 C 115 H 24 83/59 L 88 L 04/28/25 08:44 111 H 04/28/25 08:40 115 H 17 83/59 L 88 L O2 Del Method O2 Flow Rate 04/28/25 11:20 Nasal Cannula 04/28/25 10:56 04/28/25 10:00 Nasal Cannula 2 04/28/25 09:45 Nasal Cannula 2 04/28/25 09:45 Nasal Cannula 2 04/28/25 09:30 Nasal Cannula 2 04/28/25 09:15 Nasal Cannula 2 04/28/25 09:00 Nasal Cannula 2 04/28/25 09:00 Nasal Cannula 2 04/28/25 08:50 Nasal Cannula 2 04/28/25 08:50 Nasal Cannula 0 04/28/25 08:48 Nasal Cannula 2 04/28/25 08:45 Room Air 04/28/25 08:44 04/28/25 08:40 Room Air Code Status & VTE Plan VTE Prophylaxis Plan VTE Prophylaxis will be ordered: Yes Supervising Physician Co-Signing Physician Notes Patient was seen and examined independently I discussed the case with Andrés Child PGY1 I reviewed pertinent past medical social family history and also the plan of care and agree with the plan of care. Patient seen in the emergency department in company of her family. She was still slightly confused. She presents with concern for sepsis with confusion and tachycardia. Initially there were some hypoxia and the source was considered to be pneumonia however at this point time we feel her pulmonary symptoms are likely related to the heart failure preserved ejection fraction exacerbation that is likely rate related from her atrial flutter. She has a confirmed urinary tract infection on admission and likely some of her sepsis symptoms are from a urinary source. Physical exam eyes she has bilateral rhonchi with some fine rales at the left base she has no coughing during exam she is not have significant JVD either. Her heart is regular her abdomen is normal active bowel sounds and soft. Review of laboratory data has her to have a flu COVID RSV screen negative Regarding the possibility this is cardiogenic in nature a BNP is added Patient been kept on IV antibiotics for urinary source. Evaluating and exploring the possibility that her hypoxia is cardiogenic related by having her on forensic dna analyst consideration of diuretic therapy. BNP will be helpful to determine volume overload as she is not directly presenting with either overt heart failure or a pulmonary infectious process. May consider respiratory [employer]. Any exceptions will be noted below Resident Activity Tracking Resident Involvement: Resident Care Provided Care Provided: Adult Hospital Medicine
[2025-04-28] MEDS ORDERED: NYSTATIN POWDER 15GM BTL EXT PRN (14:21)
[2025-04-28] MEDS ORDERED: ONDANSETRON INJ 2 MG/ML 2 ML VIAL IV PRN (14:21)
[2025-04-28] MEDS: CARBIDOPA/LEVODOPA 25/100MG TAB PO SCH (15:42)
[2025-04-28] MEDS ORDERED: METOPROLOL TARTRATE 1 MG/ML VIAL IV PRN (16:54)
[2025-04-28] MEDS: MAGNESIUM SULFATE / D5W 1 GM/100 ML BAG IV ONE (16:59)
[2025-04-28] MEDS: POTASSIUM CHLORIDE CRTAB 20 MEQ TABCR PO STA (16:59)
[2025-04-28] MEDS: ACETAMINOPHEN 325 MG TAB PO PRN (19:41)
[2025-04-28] MEDS: MELATONIN 3 MG TAB PO PRN (19:42)
[2025-04-28] MEDS: DOCUSATE SODIUM 100 MG CAP PO SCH (20:53)
[2025-04-28] MEDS: APIXABAN 2.5 MG TAB PO SCH (20:54)
[2025-04-28] MEDS: GABAPENTIN 300 MG CAP PO SCH (20:55)
[2025-04-28] MEDS: CARBIDOPA/LEVODOPA 25/100MG EXT REL TAB PO SCH (20:56)
[2025-04-28 21:08] LABS: A calco-baum cmplx NotReported Not Detected (NotDetected); Bact fragilis Not Reported Not Detected (NotDetected); Blood Culture Id Panel See PCR Comment (NotDetected); C auris Not Reported Not Detected (NotDetected); CTX-M Resistant Gene Not Detected (NotDetected); Calbicans Not Reported Not Detected (NotDetected); Candida glabrata Not Reported Not Detected (NotDetected); Candida krusei Not Reported Not Detected (NotDetected); Cneoformans/gatti Not Reported Not Detected (NotDetected); Cparapsilosis Not Reported Not Detected (NotDetected); Ctropicalis Not Reported Not Detected (NotDetected); E cloacae compx Not Reported Not Detected (NotDetected); Efaecalis Not Reported Not Detected (NotDetected); Efaecium Not Reported Not Detected (NotDetected); Enterobacterales DETECTED (NotDetected); Enterobacterales Not Reported DETECTED (NotDetected); Escherichia coli Not Reported DETECTED (NotDetected); H influenzae Not Reported Not Detected (NotDetected); IMP Resistant Gene Not Detected (NotDetected); K aerogenes Not Reported Not Detected (NotDetected); KPC Resistant Gene Not Detected (NotDetected); Koxytoca Not Reported Not Detected (NotDetected); Kpneumoniae grp Not Reported Not Detected (NotDetected); Lmonocyt Not Reported Not Detected (NotDetected); N meningitidis Not Reported Not Detected (NotDetected); NDM Resistant Gene Not Detected (NotDetected); OXA 48 Like Resistant Gene Not Detected (NotDetected); P aeruginosa Not Reported Not Detected (NotDetected); Proteus spp Not Reported Not Detected (NotDetected); Salmonella spp Not Reported Not Detected (NotDetected); Staph lugdunensis Not Reported Not Detected (NotDetected); Staph spp. Not Reported Not Detected (NotDetected); Staphaureus Not Reported Not Detected (NotDetected); Staphepi Not Reported Not Detected (NotDetected); Stenmaltophilia Not Reported Not Detected (NotDetected); Strep agal(GrpB) Not Reported Not Detected (NotDetected); Strep pneum Not Reported Not Detected (NotDetected); Strep pyog (GrpA) Not Reported Not Detected (NotDetected); Strep spp Not Reported Not Detected (NotDetected); VIM Resistant Gene Not Detected (NotDetected); mcr-1 Colistin Resistant Gene Not Detected (NotDetected)
--- NOTE | 2025-04-29 07:22 | Hospitalist Progress Note ---
Date of Service April 29, 2025 Assessment & Plan (1) Metabolic encephalopathy: (2) Urinary tract infection: (3) Atrial flutter, paroxysmal: (4) Hypoxia: (5) Elevated troponin I level: (6) Parkinson's disease: Plan Stephie is an 89yo lady with PMH of Parkinson Disease on carbidopa-levodopa, Atrial fibrillation on eliquis, and HTN who presented to the ED this morning due to not feeling well and a little weak. She is currently being managed for gram negative bacteriemia and metabolic encephalopathy secondary to UTI and suspected HFpEF secondary to atrial flutter. Notable Labs/Imaging: CXR 04/28: IMPRESSION: Possible early pneumonia at the right upper lung. UA 04/28: cloudy, 2+ blood, 2+ leukocyte esterase, 4+ bacteria Urine Culture: E.Coli with no apparent resistance Blood Culture: E.coli procalcitonin: 8.28 BNP: 459 #Gram negative Bacteremia #Metabolic encephalopathy #Sepsis #Complicated UTI -continue ceftriaxone 2g IV daily for tentatively 7 days; today is day 2/7 -CMP tomorrow, will follow -CBC tomorrow, will follow -BNP tomorrow, will follow -blood culture sensitivities pending #HFpEF secondary to atrial flutter #Atrial flutter, paroxysmal #Hypoxia, currently resolved secondary to Atrial flutter RVR-induced fluid overload vs possible pneumonia- less likely asymptomatic, currently rate controlled -saturating 93% RA, goal to keep sats above 90% -consider trial of diuresis if pt becomes symptomatic -downgrade to Med-Surg floor -give metoprolol 25mg PO if heart rates persistently >110 #Elevated troponin I level likely secondary to demand ischemia -first level 39.9, second 40.6 -repeat today 13.8 -Asx and stable #HTN -amlodipine held d/t relative hypotension -continue clonidine 0.05mg at reduced dose to avoid rebound tachycardia #Parkinson Disease -continue at home carbidopa-levodopa 25/100mg regimen PT/OT on board, continue PT/OT while hospitalized with plan to return to [facility] when clinically stable VTE prophylaxis: Eliquis Dispo: med-surg FEN/GI: Heart Healthy Diet Code Status: Conditional Admission and Anticipated Discharge Date Admission Date: April 28, 2025 Supervising Physician Co-Signing Physician Notes Patient was seen and examined independently I discussed the case with Andrés Child PGY1 I reviewed pertinent past medical social family history and also the plan of care and agree with the plan of care. Patient much improved with less confusion she presents with concern for sepsis with gram-negative bacteremia from urinary source. Initially there were some hypoxia and the source was considered to be pneumonia however at this point time we feel her pulmonary symptoms are likely related to the heart failure preserved ejection fraction exacerbation that is likely rate related from her atrial flutter. She has a confirmed urinary tract infection on admission with bacteremia and likely some of her sepsis symptoms are from a urinary source. Physical exam eyes she has much improved pulmonary exam with only basilar rhonchi her heart is regular her abdomen is normal active bowel sounds and soft. Patient has sepsis from a urinary source with confirmed gram-negative bacteremia continue ceftriaxone therapy for 7-day total duration. Heart failure preserved ejection fraction. BNP is mildly elevated on presentation however she is not requiring any supplemental oxygen at this point time and orders given the respiratory distress subsequently will not formally use loop diuretics to treat her unless these develop. Any exceptions will be noted below Subjective No overnight events. Ms. Pete was seen and examined this morning at bedside. Today she feels fine. She is tolerating diet and PO fluids well. She states she has been well taken care of by staff. She denies fever, chills, CP, palpitations, trouble breathing, lightheadedness, dizziness, abdominal pain, nausea, vomiting, or urinary complaints. Review of Systems Review of Systems: per HPI Physical Exam Physical Exam: GA: well-groomed, no apparent distress HEENT: sclera anicteric, EOMI CVS: S1 and S2 heard, no murmurs, rubs, or gallops, Pulse: regular rate and irregular rhythm, 2+ B/L RESP: B/L crackles in upper and lower lung [place] ABD: nontender, nondistended, normoactive bowel sounds SKIN: no rashes noted NEURO: no focal deficits noted Results & Data Results & Data Vital Signs (Past 12 Hours) Vital Signs Temp Pulse Pulse Resp BP Pulse Ox O2 Del Method 04/29/25 04:34 36.4 C L 74 16 114/74 97 Nasal Cannula 04/29/25 00:17 36.9 C 77 16 95/60 L 95 Nasal Cannula 04/28/25 21:38 101 H 09/15/25 20:25 36.8 C 91 H 18 145/77 H 96 Nasal Cannula 04/28/25 19:40 Nasal Cannula 04/28/25 19:28 109 H O2 Flow Rate 04/29/25 04:34 2 04/29/25 00:17 2 04/28/25 21:38 04/28/25 20:25 2 04/28/25 19:40 2 04/28/25 19:28 Resident Activity Tracking Resident Involvement: Resident Care Provided Care Provided: Adult Hospital Medicine (2) Urinary tract infection Hematuria presence: without hematuria Urinary tract infection type: site unspecified Qualified Code(s): N39.0 - Urinary tract infection, site not specified (6) Parkinson's disease Dyskinesia presence: unspecified whether dyskinesia Fluctuating manifestations: unspecified whether manifestations fluctuate Qualified Code(s): G20.A1 - Parkinson's disease without dyskinesia, without mention of fluctuations
[2025-04-29] MEDS: cefTRIAXone SODIUM 2,000 MG/50 ML BAG IV SCH (07:37)
[2025-04-29] MEDS: POLYETHYLENE (MIRALAX) 17 GM PACK PO SCH (07:48)
[2025-04-29 09:59] LABS: Hematocrit (blood only) 34.8 % (37.0-47.0); Hemoglobin 11.5 g/dl (12.0-16.0); Immature Granulocytes # (auto) 0.02 K/uL (0.01-0.20); Immature Granulocytes % (auto) 0.4 %; Mean Corpuscular Hemoglobin 29.1 pg (25.0-34.0); Mean Corpuscular Volume 88.1 fL (80.0-100.0); Platelet Count 150 K/uL (130-400); RDW Standard Deviation 47.5 fL (36.4-46.3); Red Blood Count 3.95 M/uL (4.20-5.40); White Blood Count 5.67 K/ul (4.8-10.8)
[2025-04-29 10:13] LABS: Anion Gap 8.0 (3-11); Blood Urea Nitrogen 23.0 mg/dl (6-23); Calcium 8.5 mg/dl (8.6-10.3); Carbon Dioxide 23.0 mmol/L (21-32); Chloride 103.0 mmol/L (98-107); Creatinine Clr Calc Pharmacy 42.8 ml/min; Glucose 215.0 mg/dl (70-99(Fasting)); Potassium 4.0 mmol/L (3.5-5.1); Sodium 134.0 mmol/L (136-145)
--- NOTE | 2025-04-29 15:35 | Billing Data ---
Date of Service April 29, 2025 Coding Level of Care Code 83736 SUB INP/OBS CARE
[2025-04-29] MEDS: METOPROLOL TARTRATE 25 MG TAB PO PRN (22:34)
[2025-04-30 01:11] VITALS: RESP 16; TEMP 98.4
[2025-04-30 07:09] LABS: Hematocrit (blood only) 33.7 % (37.0-47.0); Hemoglobin 11.0 g/dl (12.0-16.0); Mean Corpuscular Hemoglobin 28.1 pg (25.0-34.0); Mean Corpuscular Volume 86.2 fL (80.0-100.0); Platelet Count 173 K/uL (130-400); RDW Standard Deviation 46.0 fL (36.4-46.3); Red Blood Count 3.91 M/uL (4.20-5.40); White Blood Count 4.79 K/ul (4.8-10.8)
[2025-04-30 07:35] LABS: Anion Gap 6.0 (3-11); Blood Urea Nitrogen 19.0 mg/dl (6-23); Calcium 8.3 mg/dl (8.6-10.3); Carbon Dioxide 28.0 mmol/L (21-32); Chloride 104.0 mmol/L (98-107); Creatinine Clr Calc Pharmacy 50.6 ml/min; Potassium 4.1 mmol/L (3.5-5.1); Sodium 138.0 mmol/L (136-145)
[2025-04-30 07:38] LABS: Immature Granulocytes # (auto) 0.03 K/uL (0.01-0.20); Immature Granulocytes % (auto) 0.6 %
[2025-04-30 08:06] VITALS: BP 124/81; PULSE 84; O2SAT 91
--- NOTE | 2025-04-30 12:22 | Discharge Summary ---
Date of Service April 30, 2025 Admission HPI Per Admitting Provider CC: "This morning I didn't feel like myself." HPI: Stephie is an 89yo lady with PMH of Parkinson Disease on carbidopa-levodopa, Atrial fibrillation on eliquis, and HTN who presented to the ED this morning due to not feeling well and a little weak. Upon arrival in the ED, she was noted to be hypotensive and hypoxic and was given a 1L bolus of NS which improved her blood pressure and started on 2L of nasal cannula. CXR is consistent for pneumonia. She was started on 2g of ceftriaxone empirically for pneumonia. Inpatient service was contacted for admission. At bedside, she is not complaining of any symptoms. She stated this morning she did not feel like herself and was transported here. The pt noted that the last couple days she has been experiencing some burning and increased urgency to urinate but not today. She has not urinated today and needed to be straight catheterized for the UA which does show a UTI. She denies fever but endorses chills. She has a history of chronic constipation in her medical history. She denies any fevers, SOB, CP, palpitations/fluttering/skipped beats, lightheadedness, dizziness, N/V, diarrhea. Admission Exam Per Admitting Provider GA: well-groomed, no apparent distress HEENT: sclera anicteric, EOMI CVS: S1 and S2 heard, no murmurs, rubs, or gallops, Pulse: regular rate and irregular rhythm, 2+ B/L RESP: crackles noted over right lung base ABD: nontender, nondistended, normoactive bowel sounds SKIN: no rashes noted NEURO: no focal deficits noted Principal Diagnosis Gram Negative Bacteremia Discharge Exam GA: well-groomed, no apparent distress HEENT: sclera anicteric, EOMI CVS: S1 and S2 heard, no murmurs, rubs, or gallops, Pulse: regular rate and irregular rhythm, 2+ B/L RESP: B/L crackles in upper and lower lung [place], improved since yesterday ABD: nontender, nondistended, normoactive bowel sounds SKIN: no rashes noted NEURO: no focal deficits noted Discharge Data Allergies Allergy/AdvReac Type Severity Reaction Status Date / Time adhesive tape Allergy Unknown ON [facility] Verified 02/22/25 18:22 MED LIST droxidopa Allergy Unknown ON [facility] Verified 02/22/25 18:22 MED LIST enalapril Allergy Unknown ON [facility] Verified 02/22/25 18:22 MED LIST amantadine AdvReac Severe could not Verified 02/22/25 18:22 wake up lisinopril AdvReac Severe blood Verified 02/22/25 18:22 pressure bottoms out morphine AdvReac Severe B/P Verified 02/22/25 18:22 "bottoms out" alendronate sodium AdvReac Unknown can't Verified 02/22/25 18:22 [From Fosamax] remember hydralazine AdvReac Unknown can't Verified 02/22/25 18:22 remember Consultations 04/28/25 10:13 ED Decision to Admit Stat Hospital Course (1) Metabolic encephalopathy: (2) Urinary tract infection: (3) HTN (hypertension): (4) Parkinson's disease: (5) Hypoxia: (6) Gram-negative bacteremia: Kannan Card is an 89yo lady with PMH of Parkinson Disease on carbidopa-levodopa, Atrial fibrillation on eliquis, and HTN who presented to the ED this morning due to not feeling well and a little weak. She is currently being managed for gram negative bacteriemia and metabolic encephalopathy secondary to complicated UTI and suspected HFpEF secondary to atrial flutter. Notable Labs/Imaging: CXR 04/28: IMPRESSION: Possible early pneumonia at the right upper lung. UA 04/28: cloudy, 2+ blood, 2+ leukocyte esterase, 4+ bacteria Urine Culture: E.Coli with no apparent resistance Blood Culture: E.coli; pansensitive procalcitonin: 8.28 BNP: 459 #Gram negative Bacteremia #Metabolic encephalopathy #Sepsis #Complicated UTI -on ceftriaxone 2g IV daily for tentatively 7 days; today is day 3/7 -stop ceftriaxone and switch to PO cefpodoxime 200mg BID for 4 more days to finish course; first dose 05/01/25 -follow-up with PCP outpatient #HFpEF secondary to atrial flutter #Atrial flutter, paroxysmal #Hypoxia, currently resolved secondary to Atrial flutter RVR-induced fluid overload vs possible pneumonia- less likely asymptomatic, currently rate controlled -saturating 93% RA, goal to keep sats above 90% -give metoprolol 25mg PO if heart rates persistently >110 #Elevated troponin I level likely secondary to demand ischemia -first level 39.9, second 40.6, third 13.8 -Asx and stable #HTN -amlodipine held d/t relative hypotension -continue clonidine 0.05mg at reduced dose to avoid rebound tachycardia #Parkinson Disease -continue at home carbidopa-levodopa 25/100mg regimen Total Time Total Time Spent Total Time Spent (In Minutes): 35 Discharge Plan Discharge Items Patient Disposition: Personal Skilled Nursing Reason For Visit: PNEUMONIA Discharge Diagnosis: Gram Negative Bacteremia Condition on Discharge: Fair Activity: As commented below Non-emergency contact: Primary Care Provider Call non-emergency contact if: your symptoms worsen and you have a fever Follow-up/Referrals: Michael Gardiner, [Primary Care Provider] - Diet: Heart Healthy Addtl Attending Provider Instructions: You presented to the emergency room because you were not feeling like yourself and weak. Your lab work showed that you have a bacterial blood infection and urinary tract infection caused by a bacteria called E. Coli and you were started on an appropriate antibiotic course. Your chest X-ray showed some concern for pneumonia, however, you did not have any heart or lung symptoms. We suspect the UTI caused your heart to work harder, which caused some fluid to enter your lungs and therefore cause the X-ray findings. Each day you were in the hospital we saw improvement in your mental and physical condition and you felt better. Please follow-up with your primary care doctor within 1-2 weeks to discuss your hospital visit. Please continue to eat and drink fluids to maintain adequate nutrition. Please return to the ED if your symptoms worsen, you develop burning, stinging, increased frequency or urgency of urination, trouble breathing, chest pain, or if you develop a fever. You will be started on a new medication described below. New Medications: Cefpodoxime one 200mg tablet twice a day for 4 days. Please take this medication with food. Start your first dose on 05/01/2025. Home Medications: continue home medications as prescribed Pending Studies at Discharge: No Stand-Alone Forms: My [email or web address], Smoking Cessation Skilled Items Patient informed of condition?: Yes DNR: No Discharge Level of Care: Other Communicable Disease: No Discharge Prognosis: Improving Lines: None Urinary Catheter: No Medications and DC Order Prescriptions: New cefpodoxime 200 mg tablet 200 mg PO BID Qty: 8 0RF Rx Instructions: must administer with a meal/food Continued carbidopa-levodopa [Sinemet] 25-100 mg tablet 2.5 tab PO TID Rx Instructions: 0500, 1100, 1700 carbidopa-levodopa 25-100 mg tablet extended release 2 tab PO .HS@2200 clonidine HCl 0.1 mg Tablet 0.05 mg PO QAM clonidine HCl 0.1 mg Tablet 0.1 mg PO HS acetaminophen [Tylenol] 325 mg Tablet 650 mg PO Q4H MDD 3 GRAMS APAP/24 HOURS PRN (Reason: Pain) omega-3 fatty acids 1,000 mg Capsule 1,000 mg PO QAM amlodipine 5 mg Tablet 5 mg PO BIDM docusate sodium 100 mg Capsule 100 mg PO QPM gabapentin 300 mg Capsule 300 mg PO QPM furosemide [Lasix] 20 mg Tablet 20 mg PO Q24H PRN (Reason: Edema) nystatin 100,000 unit/gram Powder 1 applic TOPICAL DIRECTED PRN (Reason: ABD FOLD/SKIN EXCORIATION) calcium carbonate-vitamin D3 [Oyster Shell Calcium-Vit D3] 500 mg-5 mcg (200 unit) Tablet 1 tab PO QAM Eliquis 2.5 mg Tablet 2.5 mg PO Q12H nitroglycerin [Nitrostat] 0.4 mg tablet, sublingual 0.4 mg SL .Q5MIN MDD 3 DOSES PRN (Reason: Chest Pain) Qty: 25 0RF polyethylene glycol 3350 17 gram/dose Powder 17 g PO QAM Discharge Orders: Discharge Order (Routine); Ordered 04/30/25 Ordered By: Andrés Child Admission Data Admit Date/Time: 04/28/25 11:50 Attending Provider: Ruben Peoples Admit Provider: Andrés Child Primary Care Provider: Michael Gardiner [facility]; Andrés Child Other Interventions: Discharge Summary Assessment (RN) Last Done: 04/30/25 16:07 Supervising Physician Co-Signing Physician Notes Patient was seen and examined independently I discussed the case with Andrés Child PGY1 I reviewed pertinent past medical social family history and also the plan of care and agree with the plan of care. Patient much improved with less confusion she presents with concern for sepsis with gram-negative bacteremia from urinary source. Initially there were some hypoxia and the source was considered to be pneumonia however at this point time we feel her pulmonary symptoms are likely related to the heart failure preserved ejection fraction exacerbation that is likely rate related from her atrial flutter. She has a confirmed urinary tract infection on admission with bacteremia and likely some of her sepsis symptoms are from a urinary source. Given bacteremia, will treat as a complicated UTI. Studies have shown that a 7 days course of antibiotics should be sufficient even when using cephalosporings. Physical exam eyes she has much improved pulmonary exam with only basilar rhonchi her heart is regular her abdomen is normal active bowel sounds and soft. Patient has sepsis from a urinary source with confirmed gram-negative bacte remia, will transition to cefpodoxime. Heart failure preserved ejection fraction. BNP is mildly elevated on presentation however she is not requiring any supplemental oxygen Any exceptions will be noted below Resident Activity Tracking Resident Involvement: Resident Care Provided Care Provided: Adult Hospital Medicine
--- NOTE | 2025-05-01 12:45 | Coding Query ---
CONGESTIVE HEART FAILURE To Promote full compliance with coding requirements relating to patient care, physician participation is requested in all cases of member services coordinator uncertainty. Please assist us with the following questions. A diagnosis of Congestive Heart Failure is documented in the patient's medical record. To accurately code this diagnosis and to compare patient severity, we ask that you specify the type of heart failure by placing an X within the parenthesis (x). SYSTOLIC HEART FAILURE ( ) Acute ( ) Chronic ( ) Acute on Chronic ( ) Rheumatic ( ) Unknown DIASTOLIC HEART FAILURE ( ) Acute (xx ) Chronic ( ) Acute on Chronic ( ) Rheumatic ( ) Unknown COMBINED SYSTOLIC AND DIASTOLIC HEART FAILURE ( ) Acute ( ) Chronic ( ) Acute on Chronic ( ) Rheumatic ( ) Unknown Was the CHF Present On Admission? Please check the appropriate box: (xx ) Present on Admission ( ) Not Present On Admission ( ) Clinically undetermined Thank you Adele TRAMMELL
--- NOTE | 2025-05-01 15:58 | Electrocardiogram Report ---
Test Reason : Blood Pressure : */* mmHG Vent. Rate : 85 BPM Atrial Rate : 394 BPM P-R Int : * ms QRS Dur : 84 ms QT Int : 378 ms P-R-T Axes : * -22 36 degrees QTcB Int : 449 ms Atrial fibrillation Minimal voltage criteria for LVH, may be normal variant Abnormal ECG When compared with ECG of 28-Apr-2025 08:44, (unconfirmed) Criteria for Anterior infarct are no longer Present T wave inversion no longer evident in Lateral leads Confirmed by Merlin Ronquillo ([id number]) on 05/01/2025 3:57:58 PM Referred By: REFERRED SELF Confirmed By: Merlin Ronquillo
--- NOTE | 2025-05-01 17:40 | Billing Data ---
Date of Service April 30, 2025 Coding Level of Care Code 52480 IN/OBS DISCH 30 MIN/LESS
--- NOTE | 2025-05-02 15:44 | Electrocardiogram Report ---
Test Reason : Blood Pressure : */* mmHG Vent. Rate : 107 BPM Atrial Rate : * BPM P-R Int : * ms QRS Dur : 98 ms QT Int : 340 ms P-R-T Axes : * -2 163 degrees QTcB Int : 453 ms Atrial fibrillation with rapid ventricular response Minimal voltage criteria for LVH, may be normal variant ( Carlitos product ) Anterior infarct (cited on or before 22-Feb-2025) Abnormal ECG When compared with ECG of 22-Feb-2025 21:02, Atrial fibrillation has replaced Sinus rhythm Non-specific change in ST segment in Lateral leads T wave inversion now evident in Lateral leads Confirmed by Merlin Ronquillo ([id number]) on 05/02/2025 3:44:11 PM Referred By: Confirmed By: Merlin Ronquillo
--- NOTE | 2025-05-06 08:19 | Billing Data ---
Date of Service April 30, 2025 Coding Level of Care Code 98079 INP/OBS DISCH >30 MIN Time Spent (min) 35
== END 2025-04-30 17:24 | disposition home or self-care (01) | DRG 871 ==
LOC: ED 08:34 → SUATTDRO 11:50 → INTOOBSV 11:50 → 3N 11:51 → 2S 19:21 → 3W 04-29 19:52